=== PATIENT | female | born 1990 | race Caucasian/White ===

== ENCOUNTER 2020-06-07 11:55 | Outpatient (CLI) | payer OTHER, SELFPAY ==
[2020-06-07 12:26] LABS: Hematocrit 42.4 % (37.0-47.0); Hemoglobin 14.4 g/dL (12.0-15.0); Mean Corpuscular Hemoglobin 30.8 pg (26-34); Mean Corpuscular Volume 90.6 fl (80-100); Mean Platelet Volume 9.4 fl (7.4-10.4); Platelet Count Result 351 k/mm3 (150-375); Red Blood Count 4.68 M/mm3 (4.2-5.4); Red Cell Distribution Width 12.5 % (11.5-14.5); White Blood Count 8.9 K/mm3 (4.5-10.0)
[2020-06-07 13:07] LABS: Free T4 Free Thyroxine 0.78 ng/mL (0.78-2.19)
[2020-06-11 11:46] LABS: Prolactin 4.6 ng/mL (***)
== END 2020-06-07 11:56 | disposition home or self-care (01) ==
PROVIDERS: Visit Provider Obstetrics & Gynecology
DX: N93.9 Abnormal uterine and vaginal bleeding, unspecified (principal)
CPT/HCPCS: 36415; 84146; 84439; 84443; 85027

== ENCOUNTER 2021-05-24 10:14 | Outpatient (CLI) | payer MEDICAID, SELFPAY ==
[2021-05-24 10:23] LABS: Basophils Absolute Auto 0.06 K/mm3 (0.00-0.10); Basophils Percent Auto 0.7 % (0.0-1.0); Eosinophils Absolute Auto 0.13 K/mm3 (0.02-0.50); Eosinophils Percent Auto 1.6 % (1.0-6.0); Hematocrit 43.2 % (35.0-49.0); Hemoglobin 14.6 g/dL (12.0-15.0); Immature Granulocyte Absolute 0.05 K/mm3 (0.00-0.00); Immature Granulocyte Percent A 0.6 % (0.0-0.0); Lymphocytes Absolute Auto 2.74 K/mm3 (1.10-4.50); Lymphocytes Percent Auto 33.5 % (18.0-42.0); Mean Corpuscular HGB Conc 33.8 g/dL (32.0-36.0); Mean Corpuscular Volume 88.9 fL (78.0-102.0); Mean Platelet Volume 9.4 fl (9.2-11.8); Monocytes Absolute Auto 0.46 K/mm3 (0.10-0.90); Monocytes Percent Auto 5.6 % (2.0-11.0); Neutrophils Absolute Auto 4.8 K/mm3 (1.7-7.2); Platelet Count Result 333 K/mm3 (150-420); Red Blood Count 4.86 M/mm3 (4.20-5.40); Red Cell Distribution Width 12.2 % (11.6-14.4); White Blood Count 8.2 K/mm3 (4.8-10.8)
[2021-05-24 11:12] LABS: Alanine Aminotransferase 103 U/L (14-59); Albumin Level 4.1 g/dL (3.4-5.0); Alkaline Phosphatase 109 U/L (46-116); Anion Gap 9 mmol/L (8-16); Aspartate Amino Transferase 38 U/L (15-37); Bilirubin,Total 0.4 mg/dL (0.00-1.00); Blood Urea Nitrogen 9 mg/dL (7-18); Calcium 9.6 mg/dL (8.5-10.1); Carbon Dioxide 30 mmol/L (21-32); Chloride 103 mmol/L (98-108); Estimated Glomerular Filt Rate > 60; Glucose 108 mg/dL (70-99); Magnesium 2.1 mg/dL (1.8-2.4); Osmolality Calculated 293 mOsm/kg (285-295); Potassium 4.6 mmol/L (3.5-5.1); Sodium 142 mmol/L (136-145); Thyroid Stimulating Hormone 2.72 uIU/mL (0.36-3.74); Total Protein 7.4 g/dL (6.4-8.2)
[2021-05-27 11:44] LABS: Vitamin D 25 Hydroxy 21 ng/mL (30-100)
== END 2021-05-24 10:15 | disposition home or self-care (01) ==
LOC: CHSLAB 10:16
PROVIDERS: PCP Nurse Practitioner Family; Visit Provider Nurse Practitioner Family
DX: I10 Essential (primary) hypertension (principal); E83.42 Hypomagnesemia; R53.83 Other fatigue
CPT/HCPCS: 36415; 80053; 82306; 83735; 84443; 85025

== ENCOUNTER 2021-06-06 11:56 | Outpatient (CLI) | payer MEDICAID, SELFPAY ==
--- NOTE | ~2021-06-06 | US_ITS ---
EXAMINATION: US soft tissue UE LT DATE: 06/06/2021 13:13 INDICATION: Ganglion cyst with palpable lump between the base of the first and second metacarpals. TECHNIQUE: Multiple grayscale and Doppler ultrasound images of the region of concern at the dorsal ra dial aspect of the left hand were obtained. COMPARISON: None FINDINGS: 1.9 x 1.3 x 0.6 cm anechoic fluid collection at the region of concern which is without internal vascu lar flow on color Doppler . There appears be a neck of the cystic fluid collection extending to one o f the joint space at the base of the first and second metacarpals suggesting a ganglion cyst. IMPRESSION: 1. Couple abnormality of concern appears to correspond to a 1.9 x 1.3 x 0.6 cm likely ganglion cyst l ikely arising from the first or second carpal metacarpal joints. Reviewed, dictated and finalized at location A. IMPRESSION: 1. Couple abnormality of concern appears to correspond to a 1.9 x 1.3 x 0.6 cm likely ganglion cyst likely arising from the first or second carpal metacarpal joints.
--- NOTE | ~2021-06-06 | MMUS_ITS ---
EXAMINATION: MM diagnostic susana BI w maura, US breast BI limited HISTORY: Upper outer quadrant left breast lump TECHNIQUE: ML, MLO and craniocaudal 3-D tomosynthesis images of both breasts were performed and synth etic 2-D images were generated. CAD analysis was submitted and interpreted. High resolution bilateral upper outer quadrant breast ultrasound was performed. COMPARISON: None BREAST PARENCHYMAL COMPOSITION: There are scattered areas of fibroglandular density. FINDINGS: MAMMOGRAPHIC FINDINGS: There is a circumscribed lobular approximately 3.5 x 9.8 mm mass in the mid to upper outer right [address]. No suspicious mass, architectural distortion, malignant calcification, skin thickening or retraction of either breast is noted otherwise. ULTRASOUND: Right breast: An approximately 3.6 x 11.6 mm lymph node is identified, likely corresponding to the circumscribed ma mmographic mass, in the upper outer quadrant of the right breast. Left breast: A 4.3 x 2.2 x 3.4 mm cyst is identified in the area of the palpable complaint at 12-1:00 9 cm from the nipple. No suspicious mass or shadowing of either breast is detected. IMPRESSION: 1. Benign findings 2. Routine mammographic screening is recommended beginning at age 40 BI-RADS Category 2: Benign finding(s). Reviewed, dictated and finalized at location A. IMPRESSION: 1. Benign findings 2. Routine mammographic screening is recommended beginning at age 40 BI-RADS Category 2: Benign finding(s).
== END 2021-06-06 11:57 | disposition home or self-care (01) ==
LOC: ANHIMG 11:59
PROVIDERS: PCP Nurse Practitioner Family; Visit Provider Advanced Practice Midwife
DX: N63.42 Unspecified lump in left breast, subareolar (principal); N63.11 Unspecified lump in the right breast, upper outer quadrant; N60.02 Solitary cyst of left breast; M67.432 Ganglion, left wrist
CPT/HCPCS: 76642; 76882; 77062; 77066; G0279

== ENCOUNTER 2021-07-06 09:53 | Outpatient (CLI) | payer OTHER, SELFPAY ==
--- NOTE | ~2021-07-06 | XR_ITS ---
EXAMINATION: XR chest 2V EXAM DATE: 07/06/2021 10:43 INDICATION: Gastric sleeve pre op CXR, hx high BP . TECHNIQUE: Frontal and lateral projections of the chest obtained and reviewed. Comparison is made to prior examination from 03/30/2019. FINDINGS: The lungs are clear. There are no pleural effusions. The cardiomediastinal silhouette is within normal limits. There is no pneumothorax suspected. The bones and soft tissues are unremarkab le. There is no significant interval change. IMPRESSION: Normal chest x-ray exam. Reviewed, dictated and finalized at location B. TESTER IMPRESSION: Normal chest x-ray exam.
[2021-07-06 10:32] LABS: Hemoglobin A1C 5.9 % (<5.7)
--- NOTE | 2021-07-06 10:35 | ECG_ITS ---
Measurements Intervals [place] Rate: 63 P: 57 [place]: 168 QRS: 66 QRSD: 89 T: 57 QT: 388 QTc: 399 Interpretive Statements SINUS RHYTHM WITH SINUS ARRHYTHMIA NORMAL ECG Electronically Signed On 07-06-2021 11:28:26 [employer]OTH [employer]APPING SUPERVISOR by Tate Matta D.O.
[2021-07-06 10:40] LABS: Partial Thromboplastin Time 29.2 SEC (23.90-30.70); Prothrombin Time 10.3 Seconds (9.50-12.10)
[2021-07-06 11:16] LABS: Cholesterol 157 mg/dL (0-200); Ferritin 82 ng/mL (8-252); Folic Acid 16.8 ng/mL (8.6->20); HDL Direct 57 mg/dL (40-60); Iron 86 ug/dL (50-170); LDL Cholesterol Calculated 87 mg/dL (<130); Percent Iron Saturation 26 % (12-57); Triglycerides 63 mg/dL (0-150); Vitamin B12 431 pg/mL (193-986)
[2021-07-10 05:12] LABS: Vitamin B1 8 nmol/L (8-30)
[2021-07-11 10:02] LABS: Parathyroid Intact 97 pg/mL (14-64)
== END 2021-07-06 09:54 | disposition home or self-care (01) ==
LOC: CHSCARD 09:59
PROVIDERS: PCP Nurse Practitioner Family
DX: E66.01 Morbid (severe) obesity due to excess calories (principal); Z01.818 Encounter for other preprocedural examination
CPT/HCPCS: 36415; 71046; 80061; 82607; 82728; 82746; 83036; 83540; 83550; 83970; 84425; 85610; 85730; 93005

== ENCOUNTER 2021-07-18 10:07 | Outpatient (CLI) | payer OTHER, SELFPAY ==
--- NOTE | ~2021-07-18 | XR_ITS ---
EXAMINATION: XR wrist LT min 3V EXAM DATE: 07/18/2021 10:25 INDICATION: Left wrist arthritis, ganglion cyst scaphoid region. TECHNIQUE: Left wrist frontal, frontal with ulnar deviation, oblique and lateral projections obtained and reviewed. There is no prior study for comparison. FINDINGS: Left wrist scapholunate joint space is maintained. Small well-corticated scaphoid cystic re gion, benign finding. Potentially could be intraosseous component ganglion cyst. No other erosions. J oint spaces are uniform. There are no acute fractures or dislocations identified. There is no subcut aneous gas. The soft tissue is unremarkable. There are no radiopaque foreign bodies. IMPRESSION: Small scaphoid well-defined lucent region, benign finding. Possible intraosseous ganglion cyst. Reviewed, dictated and finalized at location A. PER SORTER
== END 2021-07-18 10:08 | disposition home or self-care (01) ==
LOC: ANHIMG 10:12
PROVIDERS: PCP Nurse Practitioner Family; Visit Provider Plastic Surgery
DX: M19.032 Primary osteoarthritis, left wrist (principal); M67.432 Ganglion, left wrist
CPT/HCPCS: 73110

== ENCOUNTER 2021-08-16 17:18 | Outpatient (CLI) | payer OTHER, SELFPAY ==
--- NOTE | ~2021-08-16 | XR_ITS ---
EXAMINATION:XR cervical spine 4-5V DATE: 08/16/2021 17:35 INDICATION: Neck pain TECHNIQUE: AP, lateral, bilateral oblique, and odontoid views of the cervical spine are provided. COMPARISON: 01/04/2011 FINDINGS: There is straightening of the cervical spine. Alignment is normal. The odontoid is intact. No fracture is identified. Vertebral body heights and disk spaces are normal. There is mild neurofora quynh stenosis on the left at C5-6. There is mild multilevel facet and uncovertebral joint osteoarthr itis. IMPRESSION: 1. Mild cervical spondylosis without acute findings. Reviewed, dictated and finalized at location F. PACKER
== END 2021-08-16 17:19 | disposition home or self-care (01) ==
LOC: CHSIMG 17:19
PROVIDERS: PCP Nurse Practitioner Family; Visit Provider Nurse Practitioner Family
DX: M54.12 Radiculopathy, cervical region (principal)
CPT/HCPCS: 72050

== ENCOUNTER → 2021-08-18 00:12 | Outpatient (CLI) | payer OTHER, SELFPAY ==
[2021-08-19 16:52] LABS: SARS-CoV-2 RNA PCR Negative
== END ==
PROVIDERS: PCP Nurse Practitioner Family; Visit Provider Plastic Surgery
DX: Z01.812 Encounter for preprocedural laboratory examination (principal); Z20.822 Contact with and (suspected) exposure to COVID-19
CPT/HCPCS: C9803; U0003; U0005

== ENCOUNTER 2021-08-23 00:41 | Day surgery (SDC) | payer OTHER, SELFPAY ==
[2021-08-14 15:35] VITALS: BMI 37.0
--- NOTE | 2021-08-14 15:46 | PC.NURSE ---
Report to the Outpatient Waiting Room, entrance under the green pavilion located off [facility], at time 0730 on date 08/23/21. OR Time: 0930. - You will be asked a series of questions to screen for COVID 19 for your protection. - A mask is required within the hospital. - No visitors are allowed at this time. Patient visitors will be guided where to wait when not with patient. Preoperative COVID Testing Requirements: No COVID Test needed if: (proof is required; if not received patient will have Rapid Test prior to entry) - Patient has received COVID Vaccine at least 14 days prior to procedure date or - Patient has positive COVID test result within last 90 days of surgery date. COVID Test needed if above criteria is not met If not COVID vaccinated a COVID test must be conducted within 72 hours of surgery and patient is asked to isolate self from time of testing until procedure. You will go to the [facility] for your COVID testing. The [facility] is located at the corner of [address] [facility]. COVID TEST 08/18 AT 0905 You will only be called if COVID results are positive and your surgeon may reschedule your elective surgery date. Patients may have clear liquids (water, carbonated beverages, clear teas, apple juice) until 3 hours prior to surgery with a maximum of 20 ounces. - No food from midnight until time of surgery Take the following medications with a SIP of water the morning of surgery: LAMOTRIGINE, CLONAZEPAM (IF NEEDED) Medications to discontinue per physician: VITAMINS/SUPPLEMENTS Date to take last dose: 08/20/21 Please no make-up, nail ecuadorean, hairspray, perfume, deodorant, or body powder the day of surgery. No jewelry (including any body piercings) or valuables the day of surgery, leave them at home. Please take a shower or bath the night before, or the morning of, surgery with an antibacterial soap. Wear comfortable, loose fitting clothing. - Jewelry must be removed prior to entering the operating room. Rings and piercings that are not removed may be cut off. - The hospital will not accept responsibility for valuables. - Please leave all valuables, including medications, at home the day of surgery. If you are going home after surgery, a licensed dinkey driver must drive you home. - NO public transportation without another adult. - We recommend that an adult stay with you for 24 hours following discharge. - We also recommend that you do not drive, make important decision, drink alcoholic beverages, or take any drugs that were not prescribed by your health care provider for at least 24 hours after your discharge time. Follow any additional instructions given to you from your surgeon. Telephone instructions given to WENCESLAO BOWLING and asked if any additional questions and then verbalized understanding. Patient advised to call surgeon office or pre surgery nurse liaison [phone] if any additional questions.
--- NOTE | 2021-08-23 07:14 | WPDHPUPDATE1 ---
History and Physical Update Update Date/Time: 08/23/21 07:14 History and Physical has been reviewed, including an updated exam of the patient. There are NO changes in the patient's condition. Risks, benefits, and alternatives have been discussed and questions answered. Patient agrees to proceed with procedure.
[2021-08-23 07:50] VITALS: BP 131/87; PULSE 92; RESP 16; TEMP 36.9; O2SAT 100
--- NOTE | 2021-08-23 08:06 | WPDANESEPPF ---
Anes - Initial Pre Proc Eval Procedure: Operation Date: 08/23/21 09:30 Proposed Procedures p Excision Left Dorsal Wrist Ganglion Cyst - Christian Yarbrough MD Date/Time: 08/23/21 08:06 Surgeon: Christian Yarbrough MD Pre Op Diagnosis: left dorsal wrist ganglion cyst Patient Data Age: 30 Gender: F Height: 1.6 m Weight: 95.9 kg Last Vital Signs Temp 36.9 C 08/23/21 07:50 Pulse 92 08/23/21 07:50 Resp 16 08/23/21 07:50 BP 131/87 08/23/21 07:50 Pulse Ox 100 08/23/21 07:50 Allergies Allergy/AdvReac Type Severity Reaction Status Date / Time No Known Allergies Allergy Verified 08/23/21 08:02 Home Medications Medication Instructions Recorded Confirmed Type estradiol 0.1 mg/24 hr semiweekly 1 patch TRANSDERMAL DAILY ea 05/24/21 08/23/21 History transdermal patch ergocalciferol (vitamin D2) 1,250 1,250 mcg PO WEEKLY #12 cap 05/29/21 08/23/21 Rx mcg (50,000 unit) capsule lisinopril 20 mg tablet 20 mg PO DAILY #30 tablet 07/17/21 08/23/21 Rx clonazepam 0.5 mg PO TID PRN 08/14/21 08/23/21 History lamotrigine 200 mg PO BID 08/14/21 08/23/21 History tizanidine 4 mg capsule 4 mg PO TID PRN #10 cap 08/17/21 08/23/21 Rx Patient hx anesthesia problems: none Family hx anesthesia problems: none Results Review: All pre-operative results and documents have been reviewed as part of the pre-operative evaluation. [facility] Past Medical History Medical History Anxiety Depression Post hysterectomy menopause Salpingitis Seizure disorder Vaginal delivery x 3 Surgical History Surgical History History of cholecystectomy History of hysterectomy Family History Family History Grandparent Acute myocardial infarction Mother Hypertension Other Cervical cancer Diabetes mellitus Social History Social History Smoking packs per day: 0.5 Smoking cigarettes per day: 10.0 Years smoked: 3 Smoking pack-years: 1.50 Smoking status: Former smoker Tobacco type: cigarettes Smoking end date: 08/19/10 Alcohol intake: never Alcohol use details: seldom Substance use: never Substance use type: does not use Living arrangements: with family Spiritual care concerns: No Anes - Eval Final PreProcedure Day of Procedure 08/23/21 08:06 Patient weight: obese Heart: regular rate and rhythm Lungs: clear to auscultation and normal air movement Airway: Mallampati scale class II Neurological: alert and oriented Last oral intake: >/= 8 hours ASA classification: III Emergent: no Anesthetic plan: proceed Anesthesia type and monitoring: general GIVS and standard monitoring Results Review: All pre-operative results and documents have been reviewed as part of the pre-operative evaluation. Informed Consent: The patient's anesthetic plan and its attendant risks and benefits were discussed with the patient/family/POA. Questions were solicited and answers provided to the satisfaction of the patient/family/POA.
[2021-08-23] MEDS: LACTATED RINGERS 1,000 ML 30 ML IV CONT (08:17)
[2021-08-23] MEDS: LIDO 1%/EPINEPHRINE/PF 1:200,000 30 ML VIAL INFILTRATE (10:16)
[2021-08-23 10:37] VITALS: BP 104/65; PULSE 100; RESP 14; O2SAT 97
--- NOTE | 2021-08-23 10:52 | W.PM.PROC2 ---
Procedure Note - Detailed Date of Procedure 08/23/21 Pre-op Diagnosis left dorsal wrist ganglion cyst Post-op Diagnosis same Procedure Performed Excision left dorsal wrist ganglion cyst Surgeon Christian Yarbrough MD Anesthesia MAC Indications Pain Findings Ganglion cyst Description of Procedure The site over the dorsal wrist was marked on the patient as she waited in the holding area. She was taken to the operating room and placed supine on the operating table. A time-out was held and confirmed. The patient was given IV sedation and the extremity was prepped and draped in usual fashion. The marking was placed over the mass running transversely and the site was locally infiltrated with 1% lidocaine epinephrine. The tourniquet was inflated to 250 mmHg. The site was identified and the transverse incision made. Dissection was carried through the subcutaneous tissue of to the extensor tendons. The mass was palpated beneath that level. Of the tendons were and the site was identified again and exposed. The cyst was identified in the thickened extensor wall of the capsule. The cyst was removed. This site was oversewn with 3-0 Ethibond suture closing the neck. The wound was closed with subcuticular and intradermal 4-0 Monocryl suture. The skin was closed with interrupted 4-0 Monocryl. Xeroform gauze and Kerlix and 3 in Олег wrap were applied. Tourniquet was released. She is discharged in stable condition. She has a prescription for hydrocodone 5/325 7. Estimated Blood Loss 0 Tourniquet Time 23 Drains No Packing No Pathology none sent Complications No immediate complications Condition stable Disposition same day
[2021-08-23 11:05] VITALS: BP 110/60; PULSE 56; RESP 20
[2021-08-23] MEDS: oxyCODONE HCL (*CRX) 5 MG TAB IR PO (11:11)
[2021-08-23 11:35] VITALS: BP 108/54; PULSE 54; RESP 20
== END 2021-08-23 11:45 | disposition home or self-care (01) ==
PROVIDERS: PCP Nurse Practitioner Family; Visit Provider Plastic Surgery
PROC: (CPT 25111; principal; 2021-08-23 09:30)
DX: M67.432 Ganglion, left wrist (principal); G40.909 Epilepsy, unspecified, not intractable, without status epilepticus; F41.8 Other specified anxiety disorders; Z87.891 Personal history of nicotine dependence; E66.9 Obesity, unspecified; Z68.37 Body mass index [BMI] 37.0-37.9, adult
CPT/HCPCS: 25111; A9270; J1100; J2250; J2405; J2704; J3010; J7120

== ENCOUNTER 2021-10-09 10:20 | Outpatient (CLI) | payer OTHER, SELFPAY ==
--- NOTE | 2021-10-11 10:37 | WPDHOLTEREM ---
Holter/Event Monitor Holter/Event Monitor Date of procedure: 10/09/21 Holter/Event Procedure: 48 Hr Holter Monitor Indications: Palpitations Conclusion: 1. 48 hour holter monitor on 10/09/21. 2. Underlying rhythm is sinus rhythm. HR range 55-169 bpm; average HR 93 bpm. HR at 169 bpm is at 16:31. 3. There are 5 premature supraventricular complexes. No supraventricular tachycardia. 4. No premature ventricular complexes. No ventricular tachycardia. 5. No sinoatrial or atrioventricular blocks. No significant pauses greater than 2 seconds. 6. Patient reports symptoms of pounding, pressure, dizziness, irregular beats, stabbing, and fluttering which demonstrate sinus rhythm, HR range 75-118 bpm.
== END 2021-10-09 10:21 | disposition home or self-care (01) ==
LOC: CHSCARD 10:22
PROVIDERS: PCP Nurse Practitioner Family; Visit Provider Nurse Practitioner Family
DX: R00.2 Palpitations (principal)
CPT/HCPCS: 93225; 93226

== ENCOUNTER 2021-10-18 10:47 | Outpatient (CLI) | payer OTHER, SELFPAY | END 2021-10-18 10:48 | disposition home or self-care (01) | LOC: CHSLAB 10:54 | PROVIDERS: PCP Nurse Practitioner Family | DX: Z87.891 Personal history of nicotine dependence (principal); Z01.818 Encounter for other preprocedural examination | CPT/HCPCS: 36415; 80323; G0480 ==

== ENCOUNTER 2021-10-25 13:52 | Outpatient (CLI) | payer OTHER, SELFPAY | END 2021-10-25 13:53 | disposition home or self-care (01) | LOC: CHSLAB 13:56 | PROVIDERS: PCP Nurse Practitioner Family | DX: Z87.891 Personal history of nicotine dependence (principal); Z01.818 Encounter for other preprocedural examination | CPT/HCPCS: 36415; 80323; G0480 ==

== ENCOUNTER 2022-02-22 09:06 | Outpatient (CLI) | payer OTHER, SELFPAY ==
[2022-02-22 09:23] LABS: Basophils Absolute Auto 0.05 K/mm3 (0.00-0.10); Basophils Percent Auto 0.8 % (0.0-1.0); Eosinophils Absolute Auto 0.13 K/mm3 (0.02-0.50); Hematocrit 40.3 % (35.0-49.0); Hemoglobin 13.4 g/dL (12.0-15.0); Immature Granulocyte Absolute 0.02 K/mm3 (0.00-0.00); Immature Granulocyte Percent A 0.3 % (0.0-0.0); Lymphocytes Absolute Auto 2.51 K/mm3 (1.10-4.50); Lymphocytes Percent Auto 37.8 % (18.0-42.0); Mean Corpuscular HGB Conc 33.3 g/dL (32.0-36.0); Mean Corpuscular Hemoglobin 30.3 pg (27.0-31.0); Mean Corpuscular Volume 91.2 fL (78.0-102.0); Neutrophils Absolute Auto 3.5 K/mm3 (1.7-7.2); Neutrophils Percent Auto 53.1 % (50.0-70.0); Platelet Count Result 237 K/mm3 (150-420); Red Blood Count 4.42 M/mm3 (4.20-5.40); Red Cell Distribution Width 13.2 % (11.6-14.4); White Blood Count 6.6 K/mm3 (4.8-10.8)
[2022-02-22 10:06] LABS: Alanine Aminotransferase 58 U/L (14-59); Albumin Level 4.1 g/dL (3.4-5.0); Alkaline Phosphatase 93 U/L (46-116); Anion Gap 8 mmol/L (8-16); Aspartate Amino Transferase 26 U/L (15-37); Bilirubin,Total 0.5 mg/dL (0.00-1.00); Blood Urea Nitrogen 14 mg/dL (7-18); Calcium 9.1 mg/dL (8.5-10.1); Carbon Dioxide 28 mmol/L (21-32); Chloride 107 mmol/L (98-108); Estimated Glomerular Filt Rate > 60; Folic Acid 15.1 ng/mL (8.6->20); Glucose 110 mg/dL (70-99); Magnesium 2.1 mg/dL (1.8-2.4); Osmolality Calculated 297 mOsm/kg (285-295); Potassium 3.8 mmol/L (3.5-5.1); Sodium 143 mmol/L (136-145); Total Protein 7.4 g/dL (6.4-8.2); Vitamin B12 576 pg/mL (193-986)
--- NOTE | 2022-02-23 16:12 | WPDHOLTEREM ---
Holter/Event Monitor Holter/Event Monitor Date of procedure: 02/22/22 Holter/Event Procedure: 24 Hr Holter Monitor Indications: Tachycardia Conclusion: 1. 24 hour holter monitor on 02/22/22. 2. Underlying rhythm is sinus rhythm. HR range 42-138 bpm; average HR 71 bpm. 3. There are 6 premature supraventricular complexes and 2 supraventricular couplets. No supraventricular tachycardia. 4. There are no premature ventricular complexes. No ventricular tachycardia. 5. No sinoatrial or atrioventricular blocks. No significant pauses greater than 2 seconds. 6. Patient reports symptoms of sharp pain and random pain which demonstrate sinus rhythm, HR range 74-103 bpm.
[2022-02-27 20:22] LABS: Vitamin D 25 Hydroxy 32 ng/mL (30-100)
== END 2022-02-22 09:07 | disposition home or self-care (01) ==
LOC: CHSCARD 09:08
PROVIDERS: PCP Nurse Practitioner Family; Visit Provider Nurse Practitioner Family
DX: R00.0 Tachycardia, unspecified (principal); E83.42 Hypomagnesemia
CPT/HCPCS: 36415; 80053; 82306; 82607; 82746; 83735; 85025; 93225; 93226

== ENCOUNTER 2022-04-10 09:43 | Outpatient (CLI) | payer OTHER, SELFPAY ==
--- NOTE | ~2022-04-10 | XR_ITS ---
EXAM: XR thoracolumbar DATE: 04/10/2022 11:17 HISTORY: M54.9 - Dorsalgia, unspecified pain times two years NKI . COMPARISON: None available. FINDINGS: Cholecystectomy and GE junction surgery. 5 nonrib-bearing lumbar-type vertebral bodies. Hypoplastic r ibs at T12. Pedicles intact. Normal vertebral body alignment. Vertebral body heights preserved. Lisette nal osteophytosis at L4 and L5. Mild disc space narrowing at L4-5 and L5-S1, otherwise the discs spac es are maintained. Normal facets and posterior elements. No fracture or dislocation. IMPRESSION: Mild degenerative disc disease in the lower lumbar spine. Reviewed, dictated and finalized at location K.
--- NOTE | ~2022-04-10 | US_ITS ---
EXAMINATION: US abdomen complete DATE: 04/10/2022 11:23 INDICATION: Left upper quadrant abdominal pain. TECHNIQUE: Multiple grayscale and Doppler ultrasound images of the abdomen were obtained. COMPARISON: None FINDINGS: The visualized portions of the head, body, and tail of the pancreas are normal. Abdominal a brian and inferior vena cava are normal. The liver is normal without focal lesion. The gallbladder is absent. The common duct is normal and measures 8 mm. The kidneys are normal in size. The spleen is no rmal in size. IMPRESSION: 1. Normal complete abdomen ultrasound status post cholecystectomy. Reviewed, dictated and finalized at location A.
== END 2022-04-10 09:44 | disposition home or self-care (01) ==
LOC: CHSIMG 09:46
PROVIDERS: PCP Nurse Practitioner Family; Visit Provider Nurse Practitioner Family
DX: R10.9 Unspecified abdominal pain (principal); Z90.3 Acquired absence of stomach [part of]; M54.9 Dorsalgia, unspecified
CPT/HCPCS: 72080; 76700

== ENCOUNTER 2022-07-26 01:09 | Day surgery (SDC) | payer OTHER, SELFPAY ==
[2022-07-17 08:04] VITALS: BMI 22.1
--- NOTE | 2022-07-26 07:25 | WPDHPUPDATE1 ---
History and Physical Update Update Date/Time: 07/26/22 07:25 History and Physical has been reviewed, including an updated exam of the patient. There are NO changes in the patient's condition. Risks, benefits, and alternatives have been discussed and questions answered. Patient agrees to proceed with procedure.
[2022-07-26 11:18] VITALS: BP 106/69; PULSE 62; RESP 20; TEMP 36.8; O2SAT 100
--- NOTE | 2022-07-26 12:16 | P.PNAN_ITS ---
Anes - Initial Pre Proc Eval Procedure: Operation Date: 07/26/22 14:00 Proposed Procedures p Re-Excision of Ganglion Cyst Left Dorsal Wrist, - Christian Yarbrough MD s Excision of Keloids Right Upper [place] and Mid [place] - Christian Yarbrough MD Date/Time: 07/26/22 12:16 Surgeon: Christian Yarbrough MD Pre Op Diagnosis: ganglion cyst lft wrist,keloids upper&mid [id number] Patient Data Age: 31 Gender: F Height: 1.6 m Weight: 56.7 kg Allergies Allergy/AdvReac Type Severity Reaction Status Date / Time No Known Allergies Allergy Verified 07/17/22 08:08 Home Medications Medication Instructions Recorded Confirmed Type lamotrigine 200 mg tablet See Rx Instructions .Route 02/01/22 07/17/22 Rx .COMPLEX #60 tabs clonazepam 0.5 mg tablet 0.5 mg PO TID #90 tabs 07/05/22 07/17/22 Rx Adults Multivitamin 1 tab-cap PO DAILY 07/17/22 07/17/22 History estradiol 0.1 mg/24 hr semiweekly 1 patch transdermal WEEKLY 07/17/22 07/26/22 History transdermal patch Patient hx anesthesia problems: none Family hx anesthesia problems: none Results Review: All pre-operative results and documents have been reviewed as part of the pre- operative evaluation. [facility] Past Medical History Medical History (Updated 04/19/22 @ 08:42 by Eva Leonard APRN) Anxiety Depression LUQ abdominal pain Post hysterectomy menopause Salpingitis Seizure disorder Vaginal delivery x 3 Surgical History Surgical History Bariatric surgery status H/O wrist surgery cyst from Left History of cholecystectomy History of hysterectomy Family History Family History Grandparent Acute myocardial infarction Mother Hypertension Other Cervical cancer Diabetes mellitus Social History Social History Smoking packs per day: 0.5 Smoking cigarettes per day: 10.0 Years smoked: 3 Smoking pack-years: 1.50 Smoking status: Former smoker Tobacco type: cigarettes Smoking end date: 08/19/10 Alcohol intake: current Alcohol use details: seldom Substance use: never Substance use type: does not use Spiritual care concerns: No Anes - Eval Final PreProcedure Day of Procedure 07/26/22 12:16 Patient weight: normal Heart: regular rate and rhythm Lungs: clear to auscultation Airway: Mallampati scale class II Neurological: alert and oriented Last oral intake: >/= 8 hours ASA classification: II Emergent: no Anesthetic plan: proceed Anesthesia type and monitoring: general GIVS and standard monitoring Results Review: All pre-operative results and documents have been reviewed as part of the pre- operative evaluation. Informed Consent: The patient's anesthetic plan and its attendant risks and benefits were discussed with the patient/family/POA. Questions were solicited and answers provided to the satisfaction of the patient/family/POA.
[2022-07-26] MEDS: LACTATED RINGERS 1,000 ML 30 ML IV CONT (12:20)
[2022-07-26] MEDS: LIDO 1%/EPINEPHRINE/PF 1:200,000 30 ML VIAL 10 ML XX (13:01)
[2022-07-26] MEDS: BACITRACIN OINTMENT 15 GM TUBE 1 APPLIC TOPICAL (13:38)
[2022-07-26 13:53] VITALS: BP 143/112; PULSE 98; RESP 16; O2SAT 98
--- NOTE | 2022-07-26 14:01 | W.PM.PROC2 ---
Procedure Note - Detailed Date of Procedure 07/26/22 Pre-op Diagnosis ganglion cyst lft wrist,keloids upper&mid [id number] Post-op Diagnosis Other (Recurrent cyst of the left dorsal wrist. 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 1 cm excision of 1 cm keloid of the right upper helix with 1 cm simple repair and 1 cm excision of 1 cm keloid right mid helix with 1 cm simple repair. Surgeon Christian Yarbrough MD Anesthesia MAC Indications Prominent recurrent tender ganglion cyst. 1 cm pedunculated keloid of the right upper and mid helix snagging on her hair. Description of Procedure In the holding area the patient has 3 sites were marked for treatment. She was taken to the operating room placed supine operating table. A time-out was held and confirmed she was given IV sedation with an LMA. The sites were prepped and draped in usual fashion. Each was re identified and locally infiltrated with 1% lidocaine with epinephrine. The right upper extremity was exsanguinated and the tourniquet inflated to 250 mmHg. At the wrist bent over folded towels the transverse incision was made through the existing scar site. The ganglion was readily identified. It was dissected from its position within pliable scar tissue from her last surgery. We were able to follow the ganglion to its base where it was avulsed. At that site we placed 2 interrupted 2-0 Ethibond sutures. Passive flexion was not impeded by this. The tourniquet was released. The wound was closed in 2 layers with 4-0 Monocryl to close subcutaneous tissue and dermis. Glue was applied to the surface of this wound. Attention was turned to the right ear. Keloid sites were infiltrated with 1% lidocaine with epinephrine. The mid helix keloid excised around its base and taken off the perichondrium. Without undermining this wound the wound was closed with interrupted 6 0 nylon suture. Attention was then turned to the upper helix keloid this was also excised through a circular incision around the face. This wound was closed with interrupted 6 0 nylon without undermining tolerated well The usual bandage was applied to the left wrist. Estimated Blood Loss 5 Tourniquet Time 30 Drains No Packing No Pathology None sent Complications No immediate complications Condition Stable Disposition Same day
[2022-07-26 14:20] VITALS: BP 114/96; PULSE 62; RESP 14
[2022-07-26] MEDS: oxyCODONE HCL (*CRX) 5 MG TAB IR PO (14:32)
[2022-07-26 14:50] VITALS: BP 105/76; PULSE 62; RESP 14
== END 2022-07-26 15:15 | disposition home or self-care (01) ==
PROVIDERS: PCP Nurse Practitioner Family; Visit Provider Plastic Surgery
PROC: (CPT 25112; principal; 2022-07-26 14:00)
PROC: (CPT 25112; 2022-07-26 14:00)
DX: M67.432 Ganglion, left wrist (principal); L91.0 Hypertrophic scar; G40.909 Epilepsy, unspecified, not intractable, without status epilepticus; F41.9 Anxiety disorder, unspecified; F32.A Depression, unspecified; Z98.84 Bariatric surgery status; Z87.891 Personal history of nicotine dependence
CPT/HCPCS: 25112; 11441 ×2; A9270; J2250; J2370; J2405; J2704; J3010; J7120

== ENCOUNTER 2022-08-30 11:19 | Outpatient (CLI) | payer OTHER, SELFPAY ==
--- NOTE | ~2022-08-30 | XR_ITS ---
EXAMINATION: XR thoracic spine 3V DATE: 08/30/2022 12:00 INDICATION: Thoracic spine pain TECHNIQUE: AP, lateral and lateral swimmer's views of the thoracic spine were obtained. COMPARISON: None. FINDINGS: Bone alignment is normal. There is no fracture. The vertebral body heights are maintained. Small degenerative osteophytes project from the anterior endplates of multiple vertebral bodies. Ther e are surgical changes of the left upper quadrant as well as likely postcholecystectomy change. IMPRESSION: 1. Mild thoracic spondylosis without acute findings. Reviewed, dictated and finalized at location L. TREATMENT TECHNICIAN
[2022-08-30 11:46] LABS: Basophils Absolute Auto 0.03 K/mm3 (0.00-0.10); Basophils Percent Auto 0.7 % (0.0-1.0); Eosinophils Absolute Auto 0.07 K/mm3 (0.02-0.50); Eosinophils Percent Auto 1.5 % (1.0-6.0); Hematocrit 39.7 % (35.0-49.0); Hemoglobin 13.5 g/dL (12.0-15.0); Immature Granulocyte Absolute 0.01 K/mm3 (0.00-0.00); Immature Granulocyte Percent A 0.2 % (0.0-0.0); Lymphocytes Absolute Auto 1.72 K/mm3 (1.10-4.50); Lymphocytes Percent Auto 37.8 % (18.0-42.0); Mean Corpuscular Volume 91.1 fL (78.0-102.0); Mean Platelet Volume 10.8 fl (9.2-11.8); Monocytes Absolute Auto 0.35 K/mm3 (0.10-0.90); Monocytes Percent Auto 7.7 % (2.0-11.0); Neutrophils Absolute Auto 2.4 K/mm3 (1.7-7.2); Neutrophils Percent Auto 52.1 % (50.0-70.0); Platelet Count Result 234 K/mm3 (150-420); Red Blood Count 4.36 M/mm3 (4.20-5.40); White Blood Count 4.6 K/mm3 (4.8-10.8)
[2022-08-30 12:11] LABS: Hemoglobin A1C 5.2 % (<5.7)
[2022-08-30 12:47] LABS: Alanine Aminotransferase 30 U/L (14-59); Albumin Level 4.7 g/dL (3.4-5.0); Alkaline Phosphatase 98 U/L (46-116); Anion Gap 10 mmol/L (8-16); Aspartate Amino Transferase 18 U/L (15-37); Bilirubin,Total 0.6 mg/dL (0.00-1.00); Blood Urea Nitrogen 13 mg/dL (7-18); Calcium 9.4 mg/dL (8.5-10.1); Carbon Dioxide 29 mmol/L (21-32); Chloride 102 mmol/L (98-108); Estimated Glomerular Filt Rate > 60; Glucose 95 mg/dL (70-99); Osmolality Calculated 292 mOsm/kg (285-295); Sodium 141 mmol/L (136-145); Total Protein 7.8 g/dL (6.4-8.2)
[2022-09-02 17:29] LABS: Vitamin D 25 Hydroxy 43 ng/mL (30-100)
[2022-09-06 19:18] LABS: Parathyroid Hormone Related Pr 11 pg/mL (11-20)
== END 2022-08-30 11:20 | disposition home or self-care (01) ==
LOC: CHSLAB 11:21
PROVIDERS: PCP Nurse Practitioner Family; Visit Provider Nurse Practitioner Family
DX: E55.9 Vitamin D deficiency, unspecified (principal); E46 Unspecified protein-calorie malnutrition; M54.6 Pain in thoracic spine; Z90.3 Acquired absence of stomach [part of]; M43.04 Spondylolysis, thoracic region
CPT/HCPCS: 36415; 72072; 80053; 82306; 83036; 83519; 85025

== ENCOUNTER 2022-09-11 10:05 | Outpatient (RCR) | payer OTHER, SELFPAY ==
--- NOTE | 2022-09-11 11:38 | PTOPEVAL1 ---
Assessment and note entered by Whitney Cerda DPT Evaluation Information Assessment Status Evaluation Diagnosis back pain, chronic pain Onset 09/05/22 Subjective Information Patient reports pain from neck to low back with radiating pain the the L arm and the L leg that has progressed over the last 6 years with the last year being significantly worse. She reports L leg and foot are tingly and numb especially when she is laying down. She reports when she is sitting against a chair her mid back pain increased. Patient has difficulty sleeping, sitting, and picking up her kids. Patient reports that a hot shower will occasionally decrease pain. Patient reports gastric bypass sleeve in January 2022 Reported Pain Level Pain Score 6,4,3: Self Report Assessment PT Clinical Summary Patient is a 31 year old female who presents to PT with back pain. 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 Patient would benefit from skilled PT to address impairments and return to PLOF. Plan at this time to prioritize cervical and thoracic pain and progress with patient improvement. Plan of Care Interventions Electrical Stimulation,Hot Pack/Cold Pack,Manual Therapy,Mechanical Traction,Neuro Re-education, Patient/Caregiver Educati,Therapeutic Activities, Therapeutic Exercise,Self-Care/Home Management PT Services Indicated Yes Treatment Frequency and 2x weekly for 12 visits Duration These treatments will address the objective and functional deficits as defined above. The patient will be advanced safely and appropriately in order for the patient to progress towards his/her prior level of function. Additional exercises will be introduced and as well as a comprehensive home exercise program upon discharge, if needed, ?to ensure carryover of functional gains achieved in the clinic. This treatment plan has been reviewed and agreement upon by the patient.
== END 2022-09-25 14:45 | disposition home or self-care (01) ==
LOC: CHSPT 10:05
PROVIDERS: Visit Provider Nurse Practitioner Family
DX: M54.6 Pain in thoracic spine (principal); G89.29 Other chronic pain
CPT/HCPCS: 97014; 97110; 97140; 97161; G0283

== ENCOUNTER 2022-09-26 10:40 | Outpatient (CLI) | payer OTHER, SELFPAY ==
--- NOTE | ~2022-09-26 | MMUS_ITS ---
EXAMINATION: MM diagnostic susana BI w maura, US breast BI complete HISTORY: Patient complains of bilateral breast lumps and 4 year history of clear to Brown right nippl e discharge. TECHNIQUE: ML, MLO and CC 3-D tomosynthesis images of both breasts were performed and synthetic 2-D i mages were generated. CAD analysis was submitted and interpreted. Magnification views of left breast. High resolution bilateral complete breast ultrasound including all 4 quadrants and subareolar areas w as performed. COMPARISON: 06/06/2021 diagnostic bilateral mammogram and Limited bilateral breast ultrasound examina tion BREAST PARENCHYMAL COMPOSITION: The breasts are heterogeneously dense, which may obscure small masses . FINDINGS: MAMMOGRAPHIC FINDINGS: No suspicious mass or architectural distortion, malignant calcification, skin thickening or retractio n or significant new or developing density is detected. Minimal benign calcification of the breasts. ULTRASOUND: No suspicious mass or shadowing of either breast is detected. There is a benign appearing lymph node measuring approximately 2.5 x 6.6 x 6.9 mm in the right breast at 9:00 4 cm from the nipple. IMPRESSION: 1. Benign finding; no mammographic evidence of malignancy 2. Routine annual mammographic screening is recommended beginning at age 40 BI-RADS Category 2: Benign finding(s). Reviewed, dictated and finalized at location A. RONMENTAL SERVICES TECHNICIAN IMPRESSION: 1. Benign finding; no mammographic evidence of malignancy 2. Routine annual mammographic screening is recommended beginning at age 40 BI-RADS Category 2: Benign finding(s).
== END 2022-09-26 10:41 | disposition home or self-care (01) ==
PROVIDERS: PCP Nurse Practitioner Family; Visit Provider Nurse Practitioner Family
DX: N63.0 Unspecified lump in unspecified breast (principal); N64.52 Nipple discharge
CPT/HCPCS: 76641; 77062; 77066; G0279

== ENCOUNTER 2022-11-17 10:28 | Emergency (ER) | payer OTHER, SELFPAY ==
[2022-11-17] VITALS (15 sets, daily range): BP systolic 97–135; BP diastolic 63–80; PULSE 71–106; RESP 14–31; TEMP 36.3; O2SAT 99–100
--- NOTE | ~2022-11-17 | CT_ITS ---
EXAMINATION: CT abdomen pelvis w con DATE: 11/17/2022 11:49 INDICATION: Epigastric abdominal pain. Vomiting. TECHNIQUE: Computed tomography (CT) of the abdomen and pelvis was performed with 100 mL Omnipaque 350 intravenous contrast. Automated exposure control and iterative reconstruction technique were employe d. The dose-length product was 173.43 mGy-cm. COMPARISON: None. FINDINGS: The visualized portions of the lung bases are clear without pneumonia or pleural effusion. The heart size is normal. No pericardial effusion. The liver demonstrates focal steatosis adjacent to the falciform ligament. There are changes of cholecystectomy and gastric sleeve procedure. The splee n, pancreas, adrenal glands, and right kidney are normal. There is a 3 mm stone in left kidney. There are no dilated loops of bowel. The appendix is normal. There are no pathologically enlarged lymph no nancy. There is no free intraperitoneal fluid. There is moderate lower lumbar spondylosis. IMPRESSION: 1. No etiology for the patient's symptoms. Reviewed, dictated and finalized at location A.
--- NOTE | 2022-11-17 10:38 | ECG_ITS ---
Measurements Intervals [place] Rate: 72 P: 53 OK: 149 QRS: 61 QRSD: 85 T: 17 QT: 375 QTc: 412 Interpretive Statements SINUS RHYTHM WITH MARKED SINUS ARRHYTHMIA NONSPECIFIC ST & T-WAVE ABNORMALITY Electronically Signed On 11-17-2022 15:45:27 CDT by Naga Almanzar M.D.
[2022-11-17 11:13] LABS: Basophils Percent Auto 0.4 % (0.2-1.2); Eosinophils Percent Auto 0.2 % (0-4.4); Hematocrit 37.8 % (37.0-47.0); Immature Granulocyte Absolute 0.02 K/mm3 (0.00-0.031); Immature Granulocyte Percent A 0.2 % (0-0.5); Lymphocytes Absolute Auto 0.89 K/mm3 (0.9-3.2); Lymphocytes Percent Auto 8.5 % (18.3-44.2); Mean Corpuscular HGB Conc 34.4 g/dl (32-36); Mean Corpuscular Volume 90.2 fl (80-100); Mean Platelet Volume 10.8 fl (7.4-10.4); Monocytes Absolute Auto 0.3 K/mm3 (0.1-0.6); Monocytes Percent Auto 3.3 % (2.6-8.5); Neutrophils Absolute Auto 9.1 K/mm3 (1.3-6.7); Neutrophils Percent Auto 87.4 % (45.5-73.1); Platelet Count Result 237 k/mm3 (150-375); Red Blood Count 4.19 M/mm3 (4.2-5.4); Red Cell Distribution Width 12.1 % (11.5-14.5); White Blood Count 10.4 K/mm3 (4.5-10.0)
[2022-11-17 11:28] LABS: Magnesium 1.9 mg/dL (1.6-2.3)
[2022-11-17 11:32] LABS: Alanine Aminotransferase 20 U/L (6-35); Albumin Level 4.9 g/dL (3.5-5.1); Alkaline Phosphatase 83 U/L (38-126); Anion Gap 13 mmol/L (8-16); Aspartate Amino Transferase 25 U/L (14-36); Bilirubin,Total 1.1 mg/dL (0.2-1.3); Blood Urea Nitrogen 18 mg/dL (7-17); Calcium 8.7 mg/dL (8.4-10.2); Carbon Dioxide 23 mmol/L (22-30); Chloride 104 mmol/L (98-107); Estimated CRCL calculation 89 ml/min; Estimated Glomerular Filt Rate > 60; Glucose 147 mg/dL (65-110); Lactic Acid Reflex 1.7 mmol/L (0.7-2.0); Sodium 140 mmol/L (137-145)
[2022-11-17] MEDS: SODIUM CHLORIDE 0.9% IV 1,000 ML 999 ML IV CONT ×2 (11:51→13:00)
--- NOTE | 2022-11-17 11:56 | ED.GENADULT ---
HPI - General Adult General Chief complaint: Weakness Stated complaint: seizure? Time Seen by Provider: 11/17/22 10:38 Source: patient Mode of arrival: EMS Limitations: no limitations History of Present Illness HPI narrative: Patient is a 32 y/o female who presents to the ED via EMS with c/o weakness, epigastric pain. Patient reports she had gastric sleeve surgery in [facility] in January 2022 and has had numerous complications since then. She reports she has lost 105 pounds since then and has become very weak. She reports difficulty eating as she develops epigastric pain anytime she eats anything. She reports occasional regurgitation, nausea, and diarrhea. She states she typically has a bowel movement every 3 days. Denies vomiting, rectal bleeding, melena. Denies fevers, cough, cold symptoms, urinary symptoms. Today, patient states she developed muscle cramping and more significant pain in her epigastric region, which prompted her to contact EMS. She states she felt tingling in her extremities and developed an aura that she typically has before seizures. Patient does have a history of epilepsy and takes Lamictal. She has not missed any doses. She has not had a seizure since 2011. She denied any seizure-like activity or weakness. She remembers everything about today. No seizure like activity reported by EMS. Patient states her primary care doctor referred her to a GI specialist, but she was unable to get in until May. Patient does not currently take any vitamins, PPI, antacids. Related Data Home Medications Medication Instructions Recorded Confirmed Adults Multivitamin 1 tab-cap PO DAILY 07/17/22 08/30/22 Allergies Allergy/AdvReac Type Severity Reaction Status Date / Time No Known Allergies Allergy Verified 11/17/22 10:31 Review of Systems Review of Systems: CONSTITUTIONAL: Denies fever, chills, or sweats. ENT: Denies rhinorrhea, congestion, sore throat. CARDIOVASCULAR: Denies chest pain. RESPIRATORY: Denies dyspnea. GASTROINTESTINAL: See HPI. GENITOURINARY: Denies dysuria or hematuria. SKIN: Denies rash or itching. MUSCULOSKELETAL: See HPI. NEUROLOGIC: See HPI. All systems reviewed & are unremarkable except as noted in HPI and below PMFSH Past Medical History Medical History Anxiety Depression LUQ abdominal pain Post hysterectomy menopause Salpingitis Seizure disorder Vaginal delivery x 3 Surgical History Surgical History Bariatric surgery status H/O wrist surgery cyst from Left History of cholecystectomy History of hysterectomy Family History Family History Grandparent Acute myocardial infarction Mother Hypertension Other Cervical cancer Diabetes mellitus Social History Social History Smoking packs per day: 0.5 Smoking cigarettes per day: 10.0 Years smoked: 3 Smoking pack-years: 1.50 Smoking status: Former smoker Tobacco type: cigarettes Smoking end date: 08/19/10 Alcohol intake: current Alcohol use details: seldom Substance use: never Substance use type: does not use Living arrangements: with family Spiritual care concerns: No Exam Narrative: GENERAL: Well appearing, thin, non-toxic, in no acute distress. HEAD: Normocephalic, atraumatic. NECK: Supple. No adenopathy, no masses. RESPIRATORY: Airway patent, respirations nonlabored. Clear to auscultation bilaterally, no rales, rhonchi, wheezing. CARDIOVASCULAR: Regular rate and rhythm without murmurs, rubs, or gallops. Radial pulses 2+ and equal bilaterally. ABDOMINAL: Soft, tenderness throughout epigastric region, mildly throughout lower abdomen. Nondistended, no hepatosplenomegaly. Normoactive BS. MUSCULOSKELETAL: Moves all extremities. Strength/ROM intact wi
[2022-11-17 11:59] LABS: Influenza A QL RT-PCR Negative (Negative); Influenza B QL RT-PCR Negative (Negative); SARS-CoV-2 RNA PCR Negative
[2022-11-17 12:13] LABS: Appearance Urine Clear (Clear); Bacteria Urine None Seen /hpf; Bilirubin Urine Negative (Negative); Blood Urine Negative (Negative); Color Urine Yellow (Yellow); Glucose Urine UA Negative (Negative); Ketones Urine 4+ mg/dL (Negative); Leukocyte Esterase Ur 2+ LEU/UL (Negative); Need Manual Microscopic Reviewed; Nitrate Urine Negative (Negative); Non Pathogenic Casts 0-2; Protein Urine Trace mg/dL (Negative); RBC Urine 0-2 /hpf (0-2); Squamous Epithelial Cell Urine None seen /hpf (Few); Urobilinogen Urine 0.2 mg/dL (<2.0); WBC Urine 0-5 /hpf; pH Urine 5.5 (5.0-9.0)
[2022-11-17] MEDS: POTASSIUM CHLORIDE 20 MEQ PACKET (FOR LIQUID) 40 MEQ PO (12:15)
[2022-11-17] MEDS: levETIRAcetam 1000MG/NACL100ML 1,000 MG/100 ML BAG 400 MG IVPB (12:17)
[2022-11-17 12:22] LABS: Add Urine Microscopic? YES; Specific Grav Ur 1.043 (1.001-1.035)
--- NOTE | 2022-11-17 15:45 | PC.NURSE ---
PT REFUSED PROTONIX IVP MEDICATION. REJI DANIEL MADE AWARE. WILL D/C ZAIRA
== END 2022-11-17 15:50 | disposition home or self-care (01) ==
PROVIDERS: Emergency Medicine; Emergency Provider Physician Assistant; PCP Nurse Practitioner Family
DX: R10.13 Epigastric pain (principal); E86.0 Dehydration; Z87.891 Personal history of nicotine dependence; Z98.84 Bariatric surgery status
CPT/HCPCS: 36415; 74177; 80053; 81001; 83605; 83735; 85025; 87077; 87086; 87147; 87186; 87636; 93005; 96361; 96365; 99284; A9270; J1953; J7030; Q9967

== ENCOUNTER 2022-11-18 19:37 | Emergency (ER) | payer OTHER, SELFPAY ==
--- NOTE | ~2022-11-18 | CT_ITS ---
EXAMINATION: CT abdomen pelvis w con DATE: 11/19/2022 00:45 INDICATION: Upper abdominal pain TECHNIQUE: Computed tomography (CT) of the abdomen and pelvis was performed with 100 mL Omnipaque-350 intravenous contrast. Automated exposure control and iterative reconstruction technique were employe d. The dose-length product was 177.07 mGy-cm. COMPARISON: 11/17/2022 FINDINGS: Lung bases are clear. Heart size is normal. No pericardial or pleural effusion. Persistent focal hepa tic steatosis along the ligamentum teres. Postoperative change of prior sleeve gastrectomy. Spleen, p ancreas, bilateral adrenal glands and right kidney are normal. Mild left hydronephrosis with 3 mm obs tructing stone at the left ureterovesicular junction. Mild dilation of the common bile duct which jackson sures up to 8 mm and mild central intrahepatic biliary ductal dilation, both findings are unchanged a nd likely sequela of prior cholecystectomy with surgical clips the gallbladder fossa normal appendix. Oral contrast material extends through the normal caliber small bowel to the cecum with no bowel obs truction. There is mild edematous wall thickening in the proximal colon consistent with colitis. The uterus is not identified and has likely been surgically resected. No free intraperitoneal gas or flui d. No pathologically enlarged abdominal or pelvic lymphadenopathy. Moderate spondylosis at L5-S1. Oth erwise minimal spondylosis. IMPRESSION: 1. Obstructing 3 mm stone the left ureterovesicular junction with mild left hydronephrosis. 2. Mild wall thickening the proximal colon consistent with colitis could be infectious, inflammatory or less likely ischemic in etiology. Reviewed, dictated and finalized at location A. IMPRESSION: 1. Obstructing 3 mm stone the left ureterovesicular junction with mild left hyd ronephrosis. 2. Mild wall thickening the proximal colon consistent with colitis could be inf ectious, inflammatory or less likely ischemic in etiology.
[2022-11-18 20:50] VITALS: BP 114/79; PULSE 78; RESP 16; TEMP 36.2; O2SAT 100
[2022-11-18 22:15] VITALS: BP 95/59; PULSE 64; RESP 16; O2SAT 100
[2022-11-18] MEDS: ONDANSETRON INJ 4 MG/2 ML VIAL IV PUSH (22:57)
[2022-11-18] MEDS: MORPHINE SULFATE (*CRX) 4 MG/ML INJ IV PUSH (22:57)
[2022-11-18] MEDS: SODIUM CHLORIDE 0.9% IV 1,000 ML 999 ML IV CONT (22:58)
[2022-11-18 23:01] LABS: Basophils Percent Auto 0.3 % (0.2-1.2); Hematocrit 41.1 % (37.0-47.0); Hemoglobin 13.9 g/dL (12.0-15.0); Immature Granulocyte Absolute 0.02 K/mm3 (0.00-0.031); Immature Granulocyte Percent A 0.2 % (0-0.5); Lymphocytes Absolute Auto 1.11 K/mm3 (0.9-3.2); Lymphocytes Percent Auto 11.3 % (18.3-44.2); Mean Corpuscular HGB Conc 33.8 g/dl (32-36); Mean Corpuscular Volume 91.5 fl (80-100); Mean Platelet Volume 10.7 fl (7.4-10.4); Monocytes Absolute Auto 0.2 K/mm3 (0.1-0.6); Monocytes Percent Auto 2.2 % (2.6-8.5); Neutrophils Absolute Auto 8.5 K/mm3 (1.3-6.7); Platelet Count Result 250 k/mm3 (150-375); Red Blood Count 4.49 M/mm3 (4.2-5.4); Red Cell Distribution Width 12.3 % (11.5-14.5); White Blood Count 9.8 K/mm3 (4.5-10.0)
--- NOTE | 2022-11-18 23:08 | ED.GENADULT ---
HPI - General Adult General Chief complaint: Abdominal Pain Stated complaint: Abd pain, n/v, seen here yesterday Time Seen by Provider: 11/18/22 22:22 History of Present Illness HPI narrative: The patient is 32-year-old female who presents the emergency department with chief complaint of abdominal pain. The patient reports that she has prior history of a gastric sleeve that was done in [facility] the patient states that she was seen in the emergency department yesterday after she had had a seizure and reports that she was found to be hypokalemic and dehydrated. The patient reports that she was feeling little better after receiving fluids and potassium but reports that today she is having generalized discomfort throughout her abdomen. Patient reports the pain is not improved by anything and reports that its worsened by palpation and movement. Related Data Home Medications Medication Instructions Recorded Confirmed Adults Multivitamin 1 tab-cap PO DAILY 07/17/22 08/30/22 Allergies Allergy/AdvReac Type Severity Reaction Status Date / Time No Known Allergies Allergy Verified 11/17/22 10:31 Review of Systems Review of Systems: A 10 system review of systems was completed on the patient and is negative except for what is stated in the HPI. Nursing and ancillary documentation was reviewed. PMFSH Past Medical History Medical History Anxiety Depression LUQ abdominal pain Post hysterectomy menopause Salpingitis Seizure disorder Vaginal delivery x 3 Surgical History Surgical History Bariatric surgery status H/O wrist surgery cyst from Left History of cholecystectomy History of hysterectomy Family History Family History Grandparent Acute myocardial infarction Mother Hypertension Other Cervical cancer Diabetes mellitus Social History Social History Smoking packs per day: 0.5 Smoking cigarettes per day: 10.0 Years smoked: 3 Smoking pack-years: 1.50 Smoking status: Former smoker Tobacco type: cigarettes Smoking end date: 08/19/10 Alcohol intake: current Alcohol use details: seldom Substance use: never Substance use type: does not use Living arrangements: with family Spiritual care concerns: No Exam Narrative: GENERAL: Well-appearing, thin appearing, and in no acute distress. HEAD: Normocephalic, atraumatic. EYES: PERRLA and EOMI. ENT: Nares clear, no rhinorrhea or epistaxis. Mucous membranes moist. NECK: Supple. CHEST: Clear to auscultation. No respiratory distress. HEART: Regular rate and rhythm. No murmur heard. Normal peripheral pulses. ABDOMEN: Soft, diffusely tender to palpation, nondistended, normal active bowel sounds. EXTREMITIES: Normal range of motion. No edema. SKIN: Warm, dry, no rash. NEURO: No focal deficits. Alert and oriented x3. PSYCH: Normal mood and affect. Course Vital Signs Vital signs: Vital Signs Temperature 36.2 C L 11/18/22 20:50 Pulse Rate 78 11/18/22 20:50 Respiratory Rate 16 11/18/22 20:50 Blood Pressure 114/79 11/18/22 20:50 Pulse Oximetry 100 11/18/22 20:50 Oxygen Delivery Room Air 11/18/22 20:50 Temperature 36.2 C L 11/18/22 20:50 Pulse Rate 88 11/19/22 01:06 Respiratory Rate 20 11/18/22 23:31 Blood Pressure 108/73 11/19/22 01:06 Pulse Oximetry 97 11/19/22 01:06 Oxygen Delivery Room Air 11/18/22 20:50 Medical Decision Making MDM Narrative Medical decision making narrative: Differential diagnosis includes bowel obstruction, internal hernia, electrolyte abnormality small bowel obstruction, ileus Patient underwent CT abdomen pelvis with p.o. contrast and IV contrast to evaluate for possible internal hernia. CT scan showed probable
[2022-11-18 23:15] LABS: Lactic Acid Reflex 0.8 mmol/L (0.7-2.0)
[2022-11-18 23:16] LABS: Alanine Aminotransferase 20 U/L (6-35); Albumin Level 5.5 g/dL (3.5-5.1); Alkaline Phosphatase 88 U/L (38-126); Anion Gap 12 mmol/L (8-16); Aspartate Amino Transferase 27 U/L (14-36); Blood Urea Nitrogen 12 mg/dL (7-17); Calcium 9.8 mg/dL (8.4-10.2); Carbon Dioxide 24 mmol/L (22-30); Chloride 104 mmol/L (98-107); Estimated CRCL calculation 73 ml/min; Estimated Glomerular Filt Rate > 60; Glucose 89 mg/dL (65-110); Lipase 45 U/L (23-300); Magnesium 1.9 mg/dL (1.6-2.3); Potassium 4.4 mmol/L (3.4-5.0); Sodium 140 mmol/L (137-145)
[2022-11-18 23:31] VITALS: BP 99/66; PULSE 70; RESP 20; O2SAT 99
[2022-11-18 23:41] LABS: Appearance Urine Clear (Clear); Bacteria Urine None Seen /hpf; Bilirubin Urine Negative (Negative); Blood Urine 3+ (Negative); Color Urine Yellow (Yellow); Glucose Urine UA Negative (Negative); Ketones Urine 4+ mg/dL (Negative); Leukocyte Esterase Ur 1+ LEU/UL (Negative); Need Manual Microscopic Reviewed; Nitrate Urine Negative (Negative); Non Pathogenic Casts 0-2; Protein Urine Trace mg/dL (Negative); Squamous Epithelial Cell Urine None seen /hpf (Few); Urobilinogen Urine 0.2 mg/dL (<2.0); WBC Urine 0-5 /hpf; pH Urine 5.5 (5.0-9.0)
[2022-11-18 23:45] LABS: Add Urine Microscopic? YES
[2022-11-19] MEDS: MORPHINE SULFATE (*CRX) 4 MG/ML INJ IV PUSH ×2 (00:20→02:08)
[2022-11-19 00:41] LABS: Serum Qual hCG Negative
[2022-11-19 00:42] LABS: SPREG INTERNAL CONTROL Positive
[2022-11-19 01:06] VITALS: BP 108/73; PULSE 88; O2SAT 97
[2022-11-19] MEDS: ONDANSETRON INJ 4 MG/2 ML VIAL IV PUSH (02:08)
[2022-11-19] MEDS: PANTOPRAZOLE SODIUM IV 40 MG VIAL IV PUSH (02:08)
[2022-11-19 02:26] VITALS: BP 100/66; PULSE 81; RESP 16; O2SAT 100
== END 2022-11-19 02:30 | disposition home or self-care (01) ==
PROVIDERS: Emergency Provider Emergency Medicine; PCP Nurse Practitioner Family
DX: R10.84 Generalized abdominal pain (principal); R11.2 Nausea with vomiting, unspecified; Z87.891 Personal history of nicotine dependence
CPT/HCPCS: 36415; 74177; 80053; 81001; 83605; 83690; 83735; 84703; 85025; 96361; 96374; 96375; 96376; 99284; C9113; J2270; J2405; J7030; Q9967

== ENCOUNTER 2023-02-22 12:03 | Emergency (ER) | payer OTHER, SELFPAY ==
--- NOTE | ~2023-02-22 | XR_ITS ---
EXAMINATION: XR chest 2V DATE: 02/22/2023 12:31 INDICATION: Mid to left chest pain. TECHNIQUE: Frontal and lateral views of the chest were obtained. COMPARISON: Chest 2 views 07/06/2021 FINDINGS: The chest demonstrates clear lungs without pneumonia, pleural effusion, or pneumothorax. Th e heart size is normal. IMPRESSION: 1. No acute cardiopulmonary disease. Reviewed, dictated and finalized at location A.
--- NOTE | 2023-02-22 12:10 | ECG_ITS ---
Measurements Intervals [place] Rate: 73 P: 41 GA: 142 QRS: 77 QRSD: 88 T: -30 QT: 366 QTc: 404 Interpretive Statements SINUS RHYTHM BORDERLINE ST-T WAVE ABNORMALITY- ANTEROLAT/INF LEADS BASELINE WANDER- V5 BORDERLINE ECG COMPARED TO ECG 11/17/2022 10:30:13 NO SIGNIFICANT CHANGES Electronically Signed On 02-22-2023 12:44:54 CDT by Tate Matta D.O.
[2023-02-22 12:12] VITALS: BP 138/104; PULSE 76; RESP 20; TEMP 37.2; O2SAT 100
--- NOTE | 2023-02-22 12:13 | ED.CHESTPAIN ---
HPI - Chest Pain General Chief Complaint: Shortness of Breath/Dyspnea Stated Complaint: SOB Time Seen by Provider: 02/22/23 12:09 Source: patient and RN notes reviewed Mode of arrival: ambulatory Limitations: no limitations History of Present Illness HPI narrative: Patient had gastric sleeve procedure. She has lost significant amount of weight and is actually being treated now for failure to thrive. She says that she has been having some chest discomfort with some pressure and that at times she has sharp stabbing pain when she takes a deep breath. She complains of some nausea shortness of breath no diaphoresis no vomiting complaint: chest discomfort Onset (ago): day(s) (2) Timing of current episode: episodic Prior episodes: No Onset: during rest Pain location: left chest Pain radiation: back Severity: moderate Quality: aching and dull Relieving factors: nothing Exacerbating factors: nothing Associated symptoms: nausea and dyspnea Treatment prior to arrival: none Related Data Home Medications Medication Instructions Recorded Confirmed Adults Multivitamin 1 tab-cap PO DAILY 07/17/22 12/13/22 Allergies Allergy/AdvReac Type Severity Reaction Status Date / Time No Known Allergies Allergy Verified 12/13/22 13:43 Review of Systems Review of Systems: All systems reviewed & are unremarkable except as noted in HPI and below PMFSH Past Medical History Medical History Anxiety Depression LUQ abdominal pain Post hysterectomy menopause Salpingitis Seizure disorder Vaginal delivery x 3 Surgical History Surgical History Bariatric surgery status H/O wrist surgery cyst from Left History of cholecystectomy History of hysterectomy History of sleeve gastrectomy Family History Family History Grandparent Acute myocardial infarction Mother Hypertension Other Cervical cancer Diabetes mellitus Social History Social History Smoking packs per day: 0.5 Smoking cigarettes per day: 10.0 Years smoked: 3 Smoking pack-years: 1.50 Smoking status: Former smoker Tobacco type: cigarettes Smoking end date: 08/19/10 Alcohol intake: current Alcohol use details: seldom Substance use: current Substance use type: marijuana Lack of Transportation: No Lack of Food: Sometimes True Current Housing: Decline to Answer Concerned About Future Housing: Decline to Answer Difficulty Paying Gas/Electric Bills: YES Difficulty Paying for Meds: No Currently Unemployed: YES Education: High School Diploma/GED Difficulty w/ Childcare or Family Care: No Living arrangements: with family Spiritual care concerns: No Exam Const: General: healthy appearing, no acute distress and alert Nutritional Appearance: well nourished and thin Orientation/consciousness: patient oriented x3 Limitations: no limitations Other: female nurse in room during examination. HENMT: Head: normal to inspection Ears: external ears normal Face/Nose/Sinus: Normal external nose present Face and sinus: normal facial exam Mouth: Yes moist mucous membranes Eyes: Conjunctivae: conjunctivae normal Pupils: Equal, round and reactive pupils present EOM: EOMs intact bilaterally Neck: Neck: normal visual inspection Chest: Chest palpation & inspection: normal inspection of the chest and no tenderness Resp: Effort & Inspection: normal respiratory effort Auscultation: clear to auscultation bilaterally Cardio: Rate: regular rate Rhythm: regular rhythm GI: GI Palp: Yes Soft to palpation and No Tenderness to palpation present (GI) Auscultation: normal bowel sounds Back/Spine/Pelvis: Cervical Spine: cervical ROM normal Thoracic/Lumbar Spine: thoraco-lumbar ROM normal Skin: General skin exam: normal c
[2023-02-22] MEDS: ASPIRIN 81 MG CHEWABLE TABLET 324 MG PO (12:18)
[2023-02-22 12:20] VITALS: O2SAT 100
[2023-02-22 12:26] LABS: Basophils Absolute Auto 0.05 K/mm3 (0.00-0.10); Basophils Percent Auto 0.9 % (0.0-1.0); Eosinophils Absolute Auto 0.06 K/mm3 (0.02-0.50); Hematocrit 41.6 % (35.0-49.0); Immature Granulocyte Absolute 0.01 K/mm3 (0.00-0.00); Immature Granulocyte Percent A 0.2 % (0.0-0.0); Lymphocytes Absolute Auto 3.04 K/mm3 (1.10-4.50); Lymphocytes Percent Auto 52.3 % (18.0-42.0); Mean Corpuscular HGB Conc 33.7 g/dL (32.0-36.0); Mean Corpuscular Hemoglobin 30.4 pg (27.0-31.0); Mean Corpuscular Volume 90.2 fL (78.0-102.0); Mean Platelet Volume 10.6 fl (9.2-11.8); Monocytes Percent Auto 5.2 % (2.0-11.0); Neutrophils Absolute Auto 2.4 K/mm3 (1.7-7.2); Neutrophils Percent Auto 40.4 % (50.0-70.0); Platelet Count Result 246 K/mm3 (150-420); Red Blood Count 4.61 M/mm3 (4.20-5.40); White Blood Count 5.8 K/mm3 (4.8-10.8)
[2023-02-22 12:40] LABS: D Dimer 0.19 mg/L (0.19-0.50); Partial Thromboplastin Time 27.4 SEC (23.90-30.70); Prothrombin Time 10.5 Seconds (9.50-12.10)
[2023-02-22 12:44] LABS: Alanine Aminotransferase 23 U/L (14-59); Albumin Level 4.4 g/dL (3.4-5.0); Alkaline Phosphatase 85 U/L (46-116); Anion Gap 8 mmol/L (8-16); Aspartate Amino Transferase 29 U/L (15-37); Bilirubin,Total 0.6 mg/dL (0.00-1.00); Blood Urea Nitrogen 9 mg/dL (7-18); Calcium 9.2 mg/dL (8.5-10.1); Carbon Dioxide 31 mmol/L (21-32); Chloride 104 mmol/L (98-108); Estimated CRCL calculation 51 ml/min; Estimated Glomerular Filt Rate > 60; Glucose 92 mg/dL (70-99); Magnesium 2.2 mg/dL (1.8-2.4); Osmolality Calculated 294 mOsm/kg (285-295); Potassium 4.3 mmol/L (3.5-5.1); Sodium 143 mmol/L (136-145); Total Protein 7.7 g/dL (6.4-8.2)
[2023-02-22 12:48] LABS: Troponin I < 4.0 ng/L (0.00-60.4)
[2023-02-22 12:49] LABS: CRP < 0.5 mg/dL (0.0-0.9)
[2023-02-22 13:38] VITALS: BP 125/91; PULSE 78; RESP 20; TEMP 36.7; O2SAT 100
== END 2023-02-22 13:41 | disposition home or self-care (01) ==
PROVIDERS: Emergency Provider Emergency Medicine; PCP Nurse Practitioner Family
DX: R07.89 Other chest pain (principal); Z87.891 Personal history of nicotine dependence
CPT/HCPCS: 36415; 71046; 80053; 83735; 84484; 85025; 85380; 85610; 85730; 86140; 93005; 99284; A9270

== ENCOUNTER 2023-06-11 16:54 | Emergency (ER) | payer OTHER, SELFPAY ==
[2023-06-11 16:54] VITALS: BP 102/61; PULSE 85; RESP 18; TEMP 36.7; O2SAT 100
[2023-06-11 17:01] VITALS: BP 102/70; PULSE 81; RESP 20; O2SAT 100
--- NOTE | 2023-06-11 17:01 | ED.WOUNDLAC ---
HPI - Wound/Laceration General Chief Complaint: Wound/Laceration Stated Complaint: laceration to hand Time Seen by Provider: 06/11/23 16:55 Source: patient and RN notes reviewed Mode of arrival: ambulatory Limitations: no limitations History of Present Illness Onset (ago): minute(s) (10) Extremity Location: Left: hand Place: home Patient tetanus UTD: No Context: accidental (on a can of tuna) Associated symptoms: pain Treatments prior to arrival: bandage Related Data Home Medications Medication Instructions Recorded Confirmed buspirone 5 mg tablet 5 mg PO BID 06/11/23 06/11/23 lamotrigine 200 mg tablet 200 mg PO BID 06/11/23 06/11/23 Allergies Allergy/AdvReac Type Severity Reaction Status Date / Time No Known Allergies Allergy Verified 04/25/23 14:39 Review of Systems Review of Systems: All systems reviewed & are unremarkable except as noted in HPI and below PMFSH Past Medical History Medical History Anxiety Depression LUQ abdominal pain Post hysterectomy menopause Salpingitis Seizure disorder Vaginal delivery x 3 Surgical History Surgical History Bariatric surgery status H/O wrist surgery cyst from Left History of cholecystectomy History of hysterectomy History of sleeve gastrectomy Family History Family History Grandparent Acute myocardial infarction Mother Hypertension Other Cervical cancer Diabetes mellitus Social History Social History Smoking packs per day: 0.5 Smoking cigarettes per day: 10.0 Years smoked: 3 Smoking pack-years: 1.50 Smoking status: Former smoker Tobacco type: cigarettes Smoking end date: 08/19/10 Alcohol intake: current Alcohol use details: seldom Substance use: current Substance use type: marijuana Lack of Transportation: No Lack of Food: Sometimes True Current Housing: Decline to Answer Concerned About Future Housing: Decline to Answer Difficulty Paying Gas/Electric Bills: YES Difficulty Paying for Meds: No Currently Unemployed: YES Education: High School Diploma/GED Difficulty w/ Childcare or Family Care: No Living arrangements: with family Spiritual care concerns: No Exam Const: General: healthy appearing, no acute distress and alert Nutritional Appearance: well nourished Orientation/consciousness: patient oriented x3 Limitations: no limitations Other: Female nurse in room during examination HENMT: Head: normal to inspection Ears: external ears normal Face/Nose/Sinus: Normal external nose present Face and sinus: normal facial exam Mouth: Yes moist mucous membranes Eyes: Conjunctivae: conjunctivae normal Pupils: Equal, round and reactive pupils present EOM: EOMs intact bilaterally Neck: Neck: normal visual inspection Resp: Effort & Inspection: normal respiratory effort Auscultation: clear to auscultation bilaterally Cardio: Rate: regular rate Rhythm: regular rhythm GI: GI Palp: Yes Soft to palpation and No Tenderness to palpation present (GI) Auscultation: normal bowel sounds Back/Spine/Pelvis: Cervical Spine: cervical ROM normal Thoracic/Lumbar Spine: thoraco-lumbar ROM normal Skin: General skin exam: normal color Wounds: wounds noted laceration left palmar palm size (1.5 cm) Neuro: General: patient oriented x3, moves all extremities, no focal motor deficits and CN's II-XI intact bilaterally Speech: normal speech Gait exam (Neuro): Normal gait present Extrem: General: normal to inspection and no clubbing, cyanosis or edema Psych: Mental Status: mental status grossly normal Affect: normal affect Attitude: cooperative Procedures Laceration Laceration 1: Site: hand Side (If applicable): left Size (cm): 1.5 Description: linear Dep
[2023-06-11] MEDS: TETANUS,DIPHTHERIA,AC PERTUSSIS ADULT 0.5 ML (ADACEL) IM (17:21)
== END 2023-06-11 17:46 | disposition home or self-care (01) ==
LOC: CHSED 17:31
PROVIDERS: Emergency Provider Emergency Medicine; PCP Nurse Practitioner Family
DX: S61.412A Laceration without foreign body of left hand, initial encounter (principal); F41.9 Anxiety disorder, unspecified; F32.A Depression, unspecified; Z79.899 Other long term (current) drug therapy; Z87.891 Personal history of nicotine dependence; Z23 Encounter for immunization; W26.8XXA Contact with other sharp object(s), not elsewhere classified, initial encounter
CPT/HCPCS: 12001; 90471; 90715; 99282

== ENCOUNTER 2023-08-15 15:16 | Outpatient (CLI) | payer OTHER, SELFPAY ==
--- NOTE | 2023-08-15 15:32 | ECG_ITS ---
Measurements Intervals [place] Rate: 56 P: 35 OR: 148 QRS: 77 QRSD: 88 T: 64 QT: 411 QTc: 397 Interpretive Statements SINUS BRADYCARDIA COMPARED TO ECG 02/22/2023 12:15:59 SINUS BRADYCARDIA NOW PRESENT Electronically Signed On 08-16-2023 16:24:45 MOTIVATIONAL SPEAKER by Piyush Galan M.D.
[2023-08-15 16:04] LABS: Troponin I < 4.0 ng/L (0.00-60.4)
== END 2023-08-15 15:17 | disposition home or self-care (01) ==
PROVIDERS: PCP Nurse Practitioner Family; Visit Provider Nurse Practitioner Family
DX: R07.9 Chest pain, unspecified (principal); R00.1 Bradycardia, unspecified
CPT/HCPCS: 36415; 84484; 93005

== ENCOUNTER 2023-08-21 09:02 | Outpatient (CLI) | payer OTHER, SELFPAY ==
--- NOTE | 2023-08-26 09:35 | WPDHOLTEREM ---
Holter/Event Monitor Holter/Event Monitor Date of procedure: 08/21/23 Holter/Event Procedure: 48 Hr Holter Monitor Indications: Bradycardia Conclusion: 1. 48 hour holter monitor on 08/21/23. 2. Underlying rhythm is sinus rhythm. HR range 35-141 bpm; average HR 68 bpm. HR at 35 bpm was at 05:00. HR at 141 bpm was at 14:07. 3. There are 237 premature supraventricular complexes and 22 supraventricular couplets. No supraventricular tachycardia. 4. There is 1 premature ventricular complex. No ventricular tachycardia. 5. No sinoatrial or atrioventricular blocks. No significant pauses greater than 2 seconds. 6. Patient reports symptoms of racing heart, dizziness, chest pressure, lightheadedness, left arm pain which demonstrate sinus rhythm, HR range 60-110 bpm.
== END 2023-08-21 09:03 | disposition home or self-care (01) ==
LOC: CHSCARD 09:04
PROVIDERS: PCP Nurse Practitioner Family; Visit Provider Nurse Practitioner Family
DX: R07.9 Chest pain, unspecified (principal); R00.1 Bradycardia, unspecified
CPT/HCPCS: 93225; 93226

== ENCOUNTER 2023-09-10 11:06 | Emergency (ER) | payer OTHER, SELFPAY ==
--- NOTE | ~2023-09-10 | XR_ITS ---
EXAMINATION: XR chest 2V 09/10/2023 13:08 INDICATION: Chest pain PROCEDURE: 2 view chest COMPARISON: 02/22/2023 FINDINGS: The lungs are clear. The cardiomediastinal silhouette is within normal limits. There are no pleural effusions. There is no pneumothorax suspected. There are surgical changes of the upper a bdomen. IMPRESSION: 1: NO ACUTE CARDIOPULMONARY DISEASE. Reviewed, dictated and finalized at location L. ATIONAL THERAPY TEACHER
--- NOTE | ~2023-09-10 | CT_ITS ---
EXAMINATION: CTA chest PE protocol DATE: 09/10/2023 17:44 INDICATION: Near syncope. TECHNIQUE: Computed tomography angiography (CTA) of the chest was performed with 100 mL Omnipaque-350 intravenous contrast timed to evaluate the pulmonary arteries. Coronal maximum intensity projection 3D-reconstructions were created by the technologist. Automated exposure control and iterative reconst ruction technique were employed. The dose-length product was 164.31 mGy-cm. COMPARISON: CT abdomen and pelvis 11/19/2022 FINDINGS: Again seen is a 5 mm groundglass nodule in right lower lobe, likely benign. No pleural effu wang. The heart size is normal. No pericardial effusion. There is no pulmonary embolus. There are keerthi gical changes of the stomach. There are changes of cholecystectomy. There is mild thoracic spondylosi s. IMPRESSION: 1. No pulmonary embolus. Reviewed, dictated and finalized at location E. SHEET MAKER IMPRESSION: 1. No pulmonary embolus.
[2023-09-10 11:36] VITALS: BP 144/94; PULSE 93; RESP 16; TEMP 36.3; O2SAT 100
--- NOTE | 2023-09-10 11:40 | ECG_ITS ---
Measurements Intervals [place] Rate: 77 P: 73 NM: 152 QRS: -10 QRSD: 81 T: 53 QT: 358 QTc: 406 Interpretive Statements SINUS RHYTHM VOLTAGE CRITERIA FOR LVH CONSIDER INFERIOR INFARCT, AGE INDETERMINATE BORDERLINE ST-T WAVE ABNORMALITY- ANTEROLAT/HIGH LAT LEADS BASELINE WANDER- AVL, V3 ABNORMAL ECG COMPARED TO ECG 08/15/2023 15:45:35 SINUS RHYTHM NOW PRESENT Electronically Signed On 09-10-2023 12:53:53 WORLD GEOGRAPHY TEACHER by Tate Matta D.O.
[2023-09-10 12:29] LABS: Basophils Absolute Auto 0.1 K/mm3 (0.0-0.1); Basophils Percent Auto 0.9 % (0.2-1.2); Eosinophils Absolute Auto 0.1 K/mm3 (0-0.3); Eosinophils Percent Auto 1.7 % (0-4.4); Hematocrit 40.8 % (37.0-47.0); Immature Granulocyte Absolute 0.02 K/mm3 (0.00-0.031); Immature Granulocyte Percent A 0.3 % (0-0.5); Lymphocytes Absolute Auto 2.19 K/mm3 (0.9-3.2); Lymphocytes Percent Auto 37.8 % (18.3-44.2); Mean Corpuscular HGB Conc 34.3 g/dl (32-36); Mean Corpuscular Volume 90.5 fl (80-100); Mean Platelet Volume 9.4 fl (7.4-10.4); Monocytes Absolute Auto 0.3 K/mm3 (0.1-0.6); Monocytes Percent Auto 4.8 % (2.6-8.5); Neutrophils Absolute Auto 3.2 K/mm3 (1.3-6.7); Neutrophils Percent Auto 54.5 % (45.5-73.1); Platelet Count Result 251 k/mm3 (150-375); Red Blood Count 4.51 M/mm3 (4.2-5.4); White Blood Count 5.8 K/mm3 (4.5-10.0)
[2023-09-10 12:30] VITALS: O2SAT 98
[2023-09-10 12:40] LABS: Alanine Aminotransferase 40 U/L (6-35); Albumin Level 4.9 g/dL (3.5-5.1); Alkaline Phosphatase 76 U/L (38-126); Anion Gap 10 mmol/L (8-16); Aspartate Amino Transferase 39 U/L (14-36); Bilirubin,Total 0.6 mg/dL (0.2-1.3); Blood Urea Nitrogen 15 mg/dL (7-17); Calcium 9.5 mg/dL (8.4-10.2); Carbon Dioxide 30 mmol/L (22-30); Chloride 101 mmol/L (98-107); Estimated CRCL calculation 77 ml/min; Estimated Glomerular Filt Rate > 60; Glucose 90 mg/dL (65-110); Lipase 38 U/L (23-300); Sodium 141 mmol/L (137-145)
[2023-09-10 12:51] LABS: Troponin I < 0.012 ng/mL (0.000-0.034)
[2023-09-10 12:53] LABS: INR 0.9; Prothrombin Time 12.6 Seconds (11.1-14.7)
[2023-09-10 12:54] LABS: Partial Thromboplastin Time 27.5 SECONDS (22.3-36.8)
[2023-09-10 14:47] VITALS: BP 107/81; PULSE 78; RESP 16; TEMP 36.6; O2SAT 100
--- NOTE | 2023-09-10 14:48 | ECG_ITS ---
Measurements Intervals [place] Rate: 67 P: 19 SD: 139 QRS: 71 QRSD: 85 T: 59 QT: 378 QTc: 401 Interpretive Statements SINUS RHYTHM NORMAL ECG COMPARED TO ECG 09/10/2023 12:26:51 NO SIGNIFICANT CHANGES Electronically Signed On 09-10-2023 15:05:12 COFFEE MAKER by Tate Matta D.O.
[2023-09-10 15:41] LABS: Troponin I < 0.012 ng/mL (0.000-0.034)
--- NOTE | 2023-09-10 17:01 | ED.DIZZY ---
HPI - Dizziness General Chief Complaint: Syncope <Diomedes Collazo MD - Last Filed: 09/10/23 18:50> Stated Complaint: near syncope <Diomedes Collazo MD - Last Filed: 09/10/23 18:50> Time Seen by Provider: 09/10/23 12:45 <Diomedes Collazo MD - Last Filed: 09/10/23 18:50> Focused HPI: This is a 32-year-old female that presents to the emergency department for near syncopal episode today. Reports she was standing in the kitchen and started to feel very lightheaded as if she was going to pass out. She is currently being worked up by Cardiology for this issue. Reports associated chest discomfort and palpitations. GENERAL: Well-appearing, well-nourished, and in no acute distress. HEAD: Normocephalic, atraumatic. CHEST: Clear to auscultation. No respiratory distress. HEART: Regular rate and rhythm. NEURO: Alert and oriented x3. Patient screened in triage and initial orders placed. Additional care and disposition to be based upon diagnostic testing and treatment. <Mirela Barfield PA-C - Last Filed: 09/10/23 18:33> History of Present Illness HPI Narrative: 32-year-old female presenting to the emergency department for evaluation after having a near syncopal episode. Patient states she was in her kitchen when she felt like she was lightheaded. Patient states she was able to drop to her knees and crawl to the bedroom. Patient states she did have some tachycardia and her heart rate went from 175 down to 45. Patient states she has been having workup with Cardiology for this issue. Patient denies any loss of consciousness. Patient reports she is currently being worked up for bradycardia by Cardiology, Dr Matta <Diomedes Collazo MD - Last Filed: 09/10/23 18:50> Related Data Home Medications: Home Medications Medication Instructions Recorded Confirmed buspirone 5 mg tablet 5 mg PO BID 06/11/23 06/27/23 lamotrigine 200 mg tablet 200 mg PO BID 06/11/23 06/27/23 <Diomedes Collazo MD - Last Filed: 09/10/23 18:50> Allergies/Adverse Reactions: Allergies Allergy/AdvReac Type Severity Reaction Status Date / Time No Known Allergies Allergy Verified 08/15/23 14:31 <Diomedes Collazo MD - Last Filed: 09/10/23 18:50> Review of Systems Review of Systems: All systems reviewed & are unremarkable except as noted in HPI and below <Diomedes Collazo MD - Last Filed: 09/10/23 18:50> PMFSH Past Medical History Medical History: Medical History Anxiety Depression LUQ abdominal pain Post hysterectomy menopause Salpingitis Seizure disorder Vaginal delivery x 3 <Diomedes Collazo MD - Last Filed: 09/10/23 18:50> Surgical History Surgical History: Surgical History Bariatric surgery status H/O wrist surgery cyst from Left History of cholecystectomy History of hysterectomy History of sleeve gastrectomy <Diomedes Collazo MD - Last Filed: 09/10/23 18:50> Family History Family History: Family History Grandparent Acute myocardial infarction Mother Hypertension Other Cervical cancer Diabetes mellitus <Diomedes Collazo MD - Last Filed: 09/10/23 18:50> Social History Social History: Social History Smoking packs per day: 0.5 Smoking cigarettes per day: 10.0 Years smoked: 3 Smoking pack-years: 1.50 Smoking status: Former smoker Tobacco type: cigarettes Smoking end date: 08/19/10 Alcohol intake: current Alcohol use details: seldom Substance use: current Substance use type: marijuana Lack of Transportation: No Lack of Food: Sometimes True Current Housing: Decline to Answer Concerned About Future Housing: Decline to Answer Difficulty Paying Gas/Electric Bills: YES Difficulty Paying for Meds: No Currently Unemploy
[2023-09-10 17:59] VITALS: BP 124/87; PULSE 95; RESP 14; O2SAT 100
[2023-09-10 18:22] VITALS: BP 116/72; PULSE 87; RESP 20; O2SAT 100
[2023-09-10 18:49] LABS: Troponin I < 0.012 ng/mL (0.000-0.034)
== END 2023-09-10 18:27 | disposition home or self-care (01) ==
PROVIDERS: Physician Assistant; Emergency Provider Emergency Medicine; PCP Nurse Practitioner Family
DX: R55 Syncope and collapse (principal); G40.909 Epilepsy, unspecified, not intractable, without status epilepticus; Z98.84 Bariatric surgery status; Z87.891 Personal history of nicotine dependence; Z90.710 Acquired absence of both cervix and uterus; Z90.49 Acquired absence of other specified parts of digestive tract; R94.31 Abnormal electrocardiogram [ECG] [EKG]
CPT/HCPCS: 36415; 71046; 71275; 80053; 83690; 84484; 85025; 85610; 85730; 93005; 99284; Q9967

== ENCOUNTER 2023-09-16 13:41 | Outpatient (CLI) | payer OTHER, SELFPAY ==
--- NOTE | 2023-09-16 13:47 | ECHO_ITS ---
Patient Info Name: Adrienne Tom Age: 32 years : 1990 Gender: Female Ht: 63 in Wt: 111 lbs BSA: 1.49 m2 HR: 88 bpm BP: 128 / 77 mmHg Heart Rhythm: Sinus Rhythm Technical Quality: Good Exam Date: 09/16/2023 3:08 PM Exam Location: Echo Lab Patient Status: Outpatient Admit Date: 09/16/2023 Staff Ordering Physician: Fabien Spring APRN Molasses Feed Mixer: Yudi Pimentel RDCS Attending Provider: Fabien Spring APRN Exam Type: CA echo doppler color flow Study Info Indications - BRADYCARDIA Complete two-dimensional, color flow and Doppler transthoracic echocardiogram is performed. Summary 1. Complete two-dimensional, color flow and Doppler transthoracic echocardiogram is performed. 2. Left ventricular chamber dimension is normal. 3. Left ventricular systolic function is normal, estimated at 60-65%. 4. The left ventricular diastolic function is normal. 5. E/e' 6 is not elevated. 6. There is mild tricuspid valve regurgitation. 7. No pulmonary hypertension, estimated pulmonary arterial systolic pressure is 23 mmHg. Left Ventricle E/e' 6 is not elevated. Left ventricular chamber dimension is normal. Left ventricular systolic function is normal, estimated at 60-65%. The left ventricular diastolic function is normal. Right Ventricle Right ventricular systolic function is normal and with normal TAPSE 2.6 cm. Right ventricular chamber dimension is normal. Left Atria Left atrial chamber dimension is normal. Right Atria Right atrial chamber dimension is normal. Aortic Valve The aortic valve is trileaflet. There is no aortic valve stenosis. There is no aortic valve regurgitation. Pulmonic Valve There is no pulmonic regurgitation. Mitral Valve There is no mitral valve stenosis. There is no mitral valve regurgitation. Tricuspid Valve There is mild tricuspid valve regurgitation. No pulmonary hypertension, estimated pulmonary arterial systolic pressure is 23 mmHg. Pericardium/Pleural There is no pericardial effusion. Inferior Vena Cava Normal inferior vena cava with >50% collapse upon inspiration consistent with normal right atrial pressure, 5 mmHg. Aorta The aortic root size at the sinus of Valsalva is normal. Left Ventricular Outflow Tract Name Value Normal LVOT 2D LVOT Diameter 1.9 cm LVOT Doppler LVOT Peak Velocity 101 cm/s LVOT Peak Gradient 4 mmHg LVOT Mean Gradient 3 mmHg LVOT VTI 26 cm LVOT VTI/AV VTI Ratio 0.9 LVOT Stroke Volume 73 ml Pulmonic Valve Name Value Normal RVOT Doppler RVOT Peak Gradient 2 mmHg PV Doppler PV Peak Velocity 80 cm/s PV Peak Gradient 3 mmHg Mitral Valve
== END 2023-09-16 13:42 | disposition home or self-care (01) ==
LOC: CHSIMG 13:43
PROVIDERS: PCP Nurse Practitioner Family; Visit Provider Nurse Practitioner Family
DX: R07.9 Chest pain, unspecified (principal); R00.1 Bradycardia, unspecified; I07.1 Rheumatic tricuspid insufficiency
CPT/HCPCS: 93306

== ENCOUNTER 2023-10-02 12:53 | Outpatient (CLI) | payer OTHER, SELFPAY ==
--- NOTE | 2023-10-02 14:20 | NEURO_ITS ---
Impression: # Complains of wrist pain. # Normal Nerve Conduction Study. # No Carpal Tunnel Syndrome or ulnar neuropathy. # Normal needle/EMG exam. # Clinical correlation recommended. Nerve Conduction Studies Anti Sensory Summary Table Stim Site NR Peak (ms) P-T Amp (?V) Site1 Site2 Delta-P (ms) Dist (cm) Rick (m/s) Left Median Anti Sensory (2-3nd Digit) Wrist 2.8 95.5 Wrist 2-3nd Digit 2.8 14.0 50 Wrist 2.7 70.9 Wrist 2-3nd Digit 2.8 14.0 50 Left Radial Anti Sensory (Base 1st Digit) Wrist 1.4 29.5 Wrist Base 1st Digit 1.4 0.0 Left Ulnar Anti Sensory (5th Digit) Wrist 2.3 61.9 Wrist 5th Digit 2.3 14.0 61 Motor Summary Table Stim Site NR Onset (ms) O-P Amp (mV) Site1 Site2 Delta-0 (ms) Dist (cm) Rick (m/s) Left Median Motor (Abd Poll Brev) Wrist 2.7 8.1 Elbow Wrist 4.3 26.0 60 Elbow 7.0 7.4 Left Ulnar Motor (Abd Dig Minimi) Wrist 2.2 6.9 A Elbow Wrist 4.8 28.0 58 A Elbow 7.0 6.4 F Wave Studies NR F-Lat (ms) L-R F-Lat (ms) Left Median (Mrkrs) (Abd Poll Brev) 26.67 Left Ulnar (Mrkrs) (Abd Dig Min) 27.08 EMG Side Muscle Nerve Root Ins Act Fibs Amp Dur Recrt Comment Left 1stDorInt Ulnar C8-T1 Nml Nml Nml Nml Nml Left Ext Indicis Radial (Post Int) C7-8 Nml Nml Nml Nml Nml Left Ext Digitorum Radial (Post Int) C7-8 Nml Nml Nml Nml Nml Left BrachioRad Radial C5-6 Nml Nml Nml Nml Nml Left PronatorTeres Median C6-7 Nml Nml Nml Nml Nml Left Abd Poll Brev Median C8-T1 Nml Nml Nml Nml Nml Left ABD Dig Min Ulnar C8-T1 Nml Nml Nml Nml Nml MTDD
== END 2023-10-02 12:54 | disposition home or self-care (01) ==
LOC: ANHNEURO 12:54
PROVIDERS: PCP Nurse Practitioner Family; Visit Provider Plastic Surgery
DX: M25.532 Pain in left wrist (principal)
CPT/HCPCS: 95886; 95909

== ENCOUNTER 2023-11-28 07:45 | Outpatient (CLI) | payer OTHER, SELFPAY ==
--- NOTE | ~2023-11-28 | CT_ITS ---
EXAMINATION: CTA brain carotid DATE: 11/28/2023 09:42 INDICATION: Anisocoria. Headache. Dizziness. Epilepsy. TECHNIQUE: Computed tomographic angiography (CTA) of the head was performed without and with 100 mL O mnipaque-350 intravenous contrast. CTA of the neck was performed with intravenous contrast. Automated exposure control and iterative reconstruction technique were employed. The dose-length product was 1 470.19 mGy-cm. Maximum intensity projection and volume rendered 3D-reconstructions were created by brenda lund technologist on a separate workstation. COMPARISON: Brain MRI 11/28/2023 FINDINGS: HEAD CTA: There is no intracranial hemorrhage, acute infarction, or abnormal intracranial mass lesion . The ventricles are normal in size. There is mild mucosal thickening in the paranasal sinuses. The m astoid air cells are normal. The orbits are normal. The vertebral arteries are codominant. There is n o significant stenosis of basilar artery or the posterior cerebral arteries. There is no significant stenosis of the intracranial internal carotid arteries or anterior or middle cerebral arteries. Anter ior communicating artery is normal. The posterior communicating arteries are normal. There is no aneu rysm. NECK CTA: There is a 3 mm nodule in left thyroid lobe, likely not clinically significant. There are n o pathologically enlarged lymph nodes. There is no significant stenosis of the vertebral arteries. Th ere is mild plaque in the proximal internal carotid arteries. There is 0% stenosis of the proximal ri ght internal carotid artery relative to normal distal artery lumen diameter (NASCET criteria). There is 0% stenosis of the proximal left internal carotid artery relative to normal distal artery lumen di ameter. There is moderate spondylosis at C5-C6. IMPRESSION: 1. Normal brain. No aneurysm or significant intracranial arterial stenosis. 2. 0% stenosis of the proximal internal carotid arteries relative to normal distal artery lumen diame ters (NASCET criteria). Reviewed, dictated and finalized at location A. IMPRESSION: 1. Normal brain. No aneurysm or significant intracranial arterial stenosis. 2. 0% stenosis of the proximal internal carotid arteries relative to normal dis ciara artery lumen diameters (NASCET criteria).
--- NOTE | ~2023-11-28 | MR_ITS ---
EXAMINATION: MR brain/brain stem wo/w con DATE: 11/28/2023 08:38 INDICATION: Anisocoria. TECHNIQUE: Magnetic resonance imaging (MRI) of the brain and brainstem was performed without and with 10 mL MultiHance intravenous contrast. COMPARISON: None. FINDINGS: There is a focus of increased T2-weighted signal intensity in the left frontal lobe deep wh ite matter, which is normal as an isolated finding. There is no intracranial hemorrhage, acute infarc tion, or abnormal intracranial mass lesion. The ventricles are normal in size. The orbits are normal. There is mild mucosal thickening in the paranasal sinuses. The mastoid air cells are normal. IMPRESSION: 1. Normal brain. Reviewed, dictated and finalized at location A. IMPRESSION: 1. Normal brain.
[2023-11-28 09:19] LABS: Estimated Glomerular Filt Rate > 60
== END 2023-11-28 07:46 | disposition home or self-care (01) ==
LOC: CHSIMG 07:46
PROVIDERS: PCP Nurse Practitioner Family; Visit Provider Student in an Organized Health Care Education/Training Program
DX: H57.02 Anisocoria (principal)
CPT/HCPCS: 70496; 70498; 70553; A9577; Q9967

== ENCOUNTER 2023-12-16 16:11 | Outpatient (CLI) | payer OTHER, SELFPAY ==
--- NOTE | 2023-12-16 17:03 | ECG_ITS ---
SEE SCANNED COPY FOR CONFIRMED REPORT. MTDD
[2023-12-16 17:09] LABS: Basophils Absolute Auto 0.04 K/mm3 (0.00-0.10); Basophils Percent Auto 0.6 % (0.0-1.0); Eosinophils Absolute Auto 0.04 K/mm3 (0.02-0.50); Eosinophils Percent Auto 0.6 % (1.0-6.0); Hematocrit 40.1 % (35.0-49.0); Hemoglobin 13.6 g/dL (12.0-15.0); Immature Granulocyte Absolute 0.01 K/mm3 (0.00-0.00); Immature Granulocyte Percent A 0.2 % (0.0-0.0); Lymphocytes Absolute Auto 2.85 K/mm3 (1.10-4.50); Lymphocytes Percent Auto 45.5 % (18.0-42.0); Mean Corpuscular HGB Conc 33.9 g/dL (32-36); Mean Corpuscular Hemoglobin 30.7 pg (27.0-31.0); Mean Corpuscular Volume 90.5 fL (78.0-102.0); Mean Platelet Volume 10.2 fl (9.2-11.8); Monocytes Absolute Auto 0.29 K/mm3 (0.10-0.90); Monocytes Percent Auto 4.6 % (2.0-11.0); Neutrophils Absolute Auto 3.03 K/mm3 (1.70-7.20); Neutrophils Percent Auto 48.5 % (50.0-70.0); Platelet Count Result 256 K/mm3 (150-420); Red Blood Count 4.43 M/mm3 (4.20-5.40); Red Cell Distribution Width 11.3 % (11.6-14.4); White Blood Count 6.3 K/mm3 (4.8-10.8)
[2023-12-16 17:47] LABS: Alanine Aminotransferase 14 U/L (14-59); Albumin Level 4.7 g/dL (3.4-5.0); Alkaline Phosphatase 84 U/L (46-116); Anion Gap 12 mmol/L (4-12); Aspartate Amino Transferase 21 U/L (15-37); Bilirubin,Total 0.7 mg/dL (0.00-1.00); Blood Urea Nitrogen 15 mg/dL (7-18); Calcium 9.3 mg/dL (8.5-10.1); Carbon Dioxide 29 mmol/L (21-32); Chloride 102 mmol/L (98-108); Estimated Glomerular Filt Rate > 60; Glucose 92 mg/dL (70-99); Osmolality Calculated 296 mOsm/kg (285-295); Potassium 3.5 mmol/L (3.5-5.1); Sodium 143 mmol/L (136-145); Thyroid Stimulating Hormone 1.15 uIU/mL (0.36-3.74); Total Protein 7.6 g/dL (6.4-8.2); Vitamin B12 380 pg/mL (193-986)
[2023-12-16 17:48] LABS: CRP < 0.5 mg/dL (0.0-0.9); Troponin I < 4.0 ng/L (0.00-60.4)
[2023-12-16] MEDS: SODIUM CHLORIDE 0.9% IV 1,000 ML 999 ML IV CONT (17:50)
[2023-12-16 18:03] VITALS: BP 118/76; PULSE 76; RESP 14; TEMP 36.5; O2SAT 97
[2023-12-16 19:45] VITALS: BP 106/78; PULSE 72; RESP 16; TEMP 36.5; O2SAT 98
--- NOTE | 2023-12-16 19:49 | PC.NURSE ---
Patient sent from doctor's office for IV hydration. Patient is alert and oriented. Able to make needs known. Ambulated to floor and placed in room. IV line inserted and IV of NS started. Approximately 1/[address] through IV infusion patient c/o IV irritating her arm. IV slowed down and patient tolerated slower rate. IV completed and IV D/Cd. Patient states she feels better. Vital signs taken before and after fluids. Patient ambulated to car.
[2023-12-17 10:59] LABS: Magnesium 2.1 mg/dL (1.8-2.4)
[2023-12-17 23:28] LABS: FSH 149.2 mIU/mL; LH 47.7 mIU/mL
[2023-12-20 17:48] LABS: Vitamin B6 17.6 ng/mL (2.1-21.7)
[2023-12-21 22:13] LABS: Estradiol, Ultrasensitive <2 pg/mL
== END 2023-12-16 16:12 | disposition home or self-care (01) ==
LOC: CHSLAB 16:12
PROVIDERS: PCP Nurse Practitioner Family; Visit Provider Nurse Practitioner Family
DX: R19.7 Diarrhea, unspecified (principal); R61 Generalized hyperhidrosis; R20.2 Paresthesia of skin; R00.0 Tachycardia, unspecified; E86.0 Dehydration
CPT/HCPCS: 36415; 80053; 82607; 82670; 83001; 83002; 83735; 84207; 84443; 84484; 85025; 86140; 93005; 96360; J7030

== ENCOUNTER 2023-12-17 12:16 | Outpatient (CLI) | payer OTHER, SELFPAY ==
[2023-12-17 12:24] LABS: Occult Blood Negative (Negative)
== END 2023-12-17 12:17 | disposition home or self-care (01) ==
LOC: CHSLAB 12:18
PROVIDERS: PCP Nurse Practitioner Family; Visit Provider Nurse Practitioner Family
DX: R00.0 Tachycardia, unspecified (principal); R19.7 Diarrhea, unspecified
CPT/HCPCS: 82272; 87045; 87427; 87449

== ENCOUNTER 2024-02-27 01:23 | Day surgery (SDC) | payer OTHER, SELFPAY ==
[2024-02-13 13:10] VITALS: BMI 19.5
[2024-02-27 13:21] VITALS: BP 122/73; PULSE 70; RESP 20; TEMP 36.3; O2SAT 100; BMI 19.4
--- NOTE | 2024-02-27 13:43 | WPDANESEPPF ---
Anes - Initial Pre Proc Eval Procedure: Operation Date: 02/27/24 14:30 Proposed Procedures p Colonoscopy - Gene Aguirre MD Date/Time: 02/27/24 13:43 Surgeon: Gene Aguirre MD Pre Op Diagnosis: Acquired absence of stomach(part of) Patient Data Age: 33 Gender: F Height: 1.6 m Weight: 49.7 kg Last Vital Signs Temp 97.3 F L 02/27/24 13:21 Pulse 70 02/27/24 13:21 Resp 20 02/27/24 13:21 BP 122/73 02/27/24 13:21 Pulse Ox 100 02/27/24 13:21 O2 Del Method Room Air 02/27/24 13:21 Allergies Allergy/AdvReac Type Severity Reaction Status Date / Time No Known Allergies Allergy Verified 02/27/24 13:20 Home Medications Medication Instructions Recorded Confirmed Type buspirone 5 mg tablet 5 mg PO BID 06/11/23 02/27/24 History clonazepam 0.5 mg tablet (Klonopin) 0.5 mg PO QHS 10/02/23 02/27/24 History lamotrigine 200 mg tablet 200 mg PO BID #60 tabs 02/19/24 02/27/24 Rx Patient hx anesthesia problems: none Family hx anesthesia problems: none Results Review: All pre-operative results and documents have been reviewed as part of the pre-operative evaluation. [facility] Past Medical History Medical History Anxiety Depression Failure to thrive Lumbar degenerative disc disease LUQ abdominal pain Post hysterectomy menopause Salpingitis Seizure disorder Vaginal delivery x 3 Surgical History Surgical History Bariatric surgery status H/O wrist surgery cyst from Left History of cholecystectomy History of hysterectomy History of sleeve gastrectomy S/P gastric sleeve procedure Family History Family History Grandparent Acute myocardial infarction Mother Hypertension Other Cervical cancer Diabetes mellitus Social History Social History Smoking packs per day: 0.5 Smoking cigarettes per day: 10.0 Years smoked: 3 Smoking pack-years: 1.50 Smoking status: Former smoker Tobacco type: cigarettes Smoking end date: 08/19/10 Alcohol intake: current Alcohol use details: seldom Substance use: current Substance use type: marijuana Other substance usage details: THC edibles Do You Feel Safe in your Home?: Yes Lack of Transportation: No Lack of Food: Sometimes True Current Housing: I Have Housing Concerned About Future Housing: YES Difficulty Paying Gas/Electric Bills: YES Difficulty Paying for Meds: No Currently Unemployed: YES Education: High School Diploma/GED Difficulty w/ Childcare or Family Care: No Living arrangements: with family Spiritual care concerns: No Anes - Eval Final PreProcedure Day of Procedure 02/27/24 13:43 Patient weight: normal Heart: regular rate and rhythm Lungs: clear to auscultation Airway: Mallampati scale class II Neurological: alert and oriented Last oral intake: >/= 8 hours ASA classification: III Emergent: no Anesthetic plan: proceed Anesthesia type and monitoring: general GIVS and standard monitoring Results Review: All pre-operative results and documents have been reviewed as part of the pre-operative evaluation. Informed Consent: The patient's anesthetic plan and its attendant risks and benefits were discussed with the patient/family/POA. Questions were solicited and answers provided to the satisfaction of the patient/family/POA.
[2024-02-27] MEDS: LACTATED RINGERS 1,000 ML 150 ML IV CONT (14:07)
--- NOTE | 2024-02-27 14:24 | PM.HPGS ---
History of Present Illness History of Present Illness Consent: Risks, benefits, and alternatives have been discussed and questions answered. Patient agrees to proceed with procedure. Chief complaint: Acquired absence of stomach(part of) Narrative: Adrienne Tom is a 33 year old female with loose stools for last 2 years ever since she had gastric sleeve (it was done in [place]), she had EGD elsewhere and was told that no major findings. She is worried because unable to keep weight and malabsorption , never had colonoscopy. Review of Systems Review of Systems: All systems reviewed & are unremarkable except as noted in HPI and below PMFSH Past Medical History Medical History Anxiety Depression Failure to thrive Lumbar degenerative disc disease LUQ abdominal pain Post hysterectomy menopause Salpingitis Seizure disorder Vaginal delivery x 3 Surgical History Surgical History Bariatric surgery status H/O wrist surgery cyst from Left History of cholecystectomy History of hysterectomy History of sleeve gastrectomy S/P gastric sleeve procedure Family History Family History Grandparent Acute myocardial infarction Mother Hypertension Other Cervical cancer Diabetes mellitus Social History Social History Smoking packs per day: 0.5 Smoking cigarettes per day: 10.0 Years smoked: 3 Smoking pack-years: 1.50 Smoking status: Former smoker Tobacco type: cigarettes Smoking end date: 08/19/10 Alcohol intake: current Alcohol use details: seldom Substance use: current Substance use type: marijuana Other substance usage details: THC edibles Do You Feel Safe in your Home?: Yes Lack of Transportation: No Lack of Food: Sometimes True Current Housing: I Have Housing Concerned About Future Housing: YES Difficulty Paying Gas/Electric Bills: YES Difficulty Paying for Meds: No Currently Unemployed: YES Education: High School Diploma/GED Difficulty w/ Childcare or Family Care: No Living arrangements: with family Spiritual care concerns: No Meds Home Medications and Allergies Home Medications Medication Instructions Recorded Confirmed Type buspirone 5 mg tablet 5 mg PO BID 06/11/23 02/27/24 History clonazepam 0.5 mg tablet (Klonopin) 0.5 mg PO QHS 10/02/23 02/27/24 History lamotrigine 200 mg tablet 200 mg PO BID #60 tabs 02/19/24 02/27/24 Rx Allergies Allergy/AdvReac Type Severity Reaction Status Date / Time No Known Allergies Allergy Verified 02/27/24 13:20 Vital Signs Vital Signs - 24 hr 02/27/24 13:21 Temperature 97.3 F L Pulse Rate 70 Respiratory Rate 20 Blood Pressure 122/73 Pulse Oximetry 100 Oxygen Delivery Room Air Exam Const: General: comfortable and no acute distress HENMT: Face/Nose/Sinus: Normal nares present Eyes: General: appearance normal, both eyes and all related structures Neck: Neck: no JVD Resp: Auscultation: clear to auscultation bilaterally Cardio: Rate: regular rate Rhythm: regular rhythm GI: Inspection: non-distended GI Palp: Yes Soft to palpation Skin: General skin exam: normal color Neuro: General: gait normal Speech: normal speech Extrem: General: normal to inspection Psych: Mental Status: mental status grossly normal Assessment and Plan Assessment and plan (1) Diarrhea: Code(s): R19.7 - Diarrhea, unspecified Status: Acute Assessment and Plan: colonoscopy with random colon bx (2) S/P gastric sleeve procedure: Code(s): Z90.3 - Acquired absence of stomach [part of] Status: Acute
[2024-02-27 14:43] VITALS: BP 95/67; PULSE 98; RESP 16; O2SAT 100
[2024-02-27 14:53] VITALS: BP 100/66; PULSE 77; RESP 21; O2SAT 100
[2024-02-27 15:03] VITALS: BP 104/67; PULSE 79; RESP 20; O2SAT 100
== END 2024-02-27 15:14 | disposition home or self-care (01) ==
PROVIDERS: PCP Nurse Practitioner Family; Referring Provider Nurse Practitioner Family; Visit Provider Internal Medicine Gastroenterology
PROC: 0DJD8ZZ Inspection of Lower Intestinal Tract, Via Natural or Artificial Opening Endoscopic (ICD-10-PCS; CPT 45378; principal; 2024-02-27 14:30)
DX: R19.7 Diarrhea, unspecified (principal); F41.9 Anxiety disorder, unspecified; F32.A Depression, unspecified; F12.90 Cannabis use, unspecified, uncomplicated; Z98.890 Other specified postprocedural states; Z90.49 Acquired absence of other specified parts of digestive tract; Z98.84 Bariatric surgery status; Z90.3 Acquired absence of stomach [part of]; Z87.891 Personal history of nicotine dependence; Z80.49 Family history of malignant neoplasm of other genital organs; Z82.49 Family history of ischemic heart disease and other diseases of the circulatory system
CPT/HCPCS: 45380; 88305; J7120

== ENCOUNTER 2024-05-11 10:44 | Outpatient (CLI) | payer OTHER, SELFPAY ==
--- NOTE | ~2024-05-11 | XR_ITS ---
Thoracic spine: Clinical Indication: Back pain AP and lateral views were performed. No fracture is seen. There is normal alignment of the vertebrae. The intervertebral disc spaces appe ar normal. Paravertebral soft tissues appear normal. Impression: No significant abnormalities noted. Reviewed, dictated and finalized at [facility]. Impression: No significant abnormalities noted.
[2024-05-11 11:10] LABS: Basophils Absolute Auto 0.04 K/mm3 (0.00-0.10); Basophils Percent Auto 0.9 % (0.0-1.0); Eosinophils Absolute Auto 0.09 K/mm3 (0.02-0.50); Hematocrit 38.4 % (35.0-49.0); Hemoglobin 13.1 g/dL (12.0-15.0); Immature Granulocyte Absolute 0.02 K/mm3 (0.00-0.00); Immature Granulocyte Percent A 0.4 % (0.0-0.0); Lymphocytes Absolute Auto 2.25 K/mm3 (1.10-4.50); Lymphocytes Percent Auto 50.2 % (18.0-42.0); Mean Corpuscular HGB Conc 34.1 g/dL (32-36); Mean Corpuscular Hemoglobin 30.6 pg (27.0-31.0); Mean Corpuscular Volume 89.7 fL (78.0-102.0); Mean Platelet Volume 10.2 fl (9.2-11.8); Monocytes Absolute Auto 0.21 K/mm3 (0.10-0.90); Monocytes Percent Auto 4.7 % (2.0-11.0); Neutrophils Absolute Auto 1.87 K/mm3 (1.70-7.20); Neutrophils Percent Auto 41.8 % (50.0-70.0); Platelet Count Result 257 K/mm3 (150-420); Red Blood Count 4.28 M/mm3 (4.20-5.40); Red Cell Distribution Width 11.9 % (11.6-14.4); White Blood Count 4.5 K/mm3 (4.8-10.8)
[2024-05-11 11:29] LABS: Iron 84 ug/dL (50-170); Percent Iron Saturation 30 % (12-57)
== END 2024-05-11 10:45 | disposition home or self-care (01) ==
LOC: CHSLAB 10:45
PROVIDERS: PCP Nurse Practitioner Family; Visit Provider Nurse Practitioner Family
DX: R00.2 Palpitations (principal); M54.6 Pain in thoracic spine
CPT/HCPCS: 36415; 72072; 83540; 83550; 85025

== ENCOUNTER 2024-06-10 10:37 | Outpatient (CLI) | payer OTHER, SELFPAY ==
[2024-06-10 10:47] LABS: Hematocrit 39.3 % (35.0-49.0); Hemoglobin 13.3 g/dL (12.0-15.0); Mean Corpuscular HGB Conc 33.8 g/dL (32-36); Mean Corpuscular Hemoglobin 30.4 pg (27.0-31.0); Mean Corpuscular Volume 89.9 fL (78.0-102.0); Mean Platelet Volume 10.2 fl (9.2-11.8); Platelet Count Result 264 K/mm3 (150-420); Red Blood Count 4.37 M/mm3 (4.20-5.40); Red Cell Distribution Width 11.7 % (11.6-14.4); White Blood Count 5.8 K/mm3 (4.8-10.8)
[2024-06-11 15:59] LABS: ANA Cascade Screen POSITIVE (NEGATIVE); Centromere Antibody Charge YES; Centromere B Antibody 7.1 POS AI (<1.0 NEG); Chromatin (Nucleosomal) Ab <1.0 NEG AI (<1.0 NEG); Chromatin Antibody Charge YES; DNA (ds) Antibody Charge YES; JO1 Antibody Charge YES; Jo-1 Antibody <1.0 NEG AI (<1.0 NEG); RNP Antibody <1.0 NEG AI (<1.0 NEG); RNP Antibody Charge YES; Ribosomal Antibody <1.0 NEG AI (<1.0 NEG); Ribosomal Antibody Charge YES; SCL70 Antibody Charge YES; SSA Antibody Charge YES; SSB Antibody Charge YES; Sjogren's Antibody (SS-B) <1.0 NEG AI (<1.0 NEG); Sm Antibody <1.0 NEG AI (<1.0 NEG); Sm Antibody Charge YES; Sm/RNP Antibody <1.0 NEG AI (<1.0 NEG); Sm/RNP Antibody Charge YES
== END 2024-06-10 10:38 | disposition home or self-care (01) ==
LOC: CHSLAB 10:38
PROVIDERS: PCP Nurse Practitioner Family; Visit Provider Nurse Practitioner Family
DX: R53.83 Other fatigue (principal); R79.89 Other specified abnormal findings of blood chemistry; R00.2 Palpitations
CPT/HCPCS: 36415; 83516; 85027; 86038; 86225; 86235

== ENCOUNTER 2025-01-21 13:10 | Emergency (ER) | payer MEDICAID, SELFPAY ==
--- NOTE | ~2025-01-21 | XR_ITS ---
EXAMINATION: XR chest 2V 01/21/2025 14:08 INDICATION: Chest pain PROCEDURE: 2 view chest COMPARISON: Comparison to multiple prior studies sequentially, with oldest reviewed study dated 03/30. FINDINGS: The lungs are clear. The cardiomediastinal silhouette is within normal limits. There are no pleural effusions. There is no pneumothorax suspected. IMPRESSION: 1: NO ACUTE CARDIOPULMONARY DISEASE. Reviewed, dictated and finalized at location A.
--- NOTE | ~2025-01-21 | CT_ITS ---
CTA chest PE protocol Ordering provider: Diomedes Collazo MD History: 34 years Female with . Elevated D-dimer, tachycardia . Comparison: None. Technique: CT angiogram chest was performed following timed intravenous injection of contrast. Thin s lice axial images and reformatted coronal images were obtained. Three dimensional reformatted images of the chest were also obtained using a [employer] workstation. . Automated exposure control and iterati ve reconstruction technique were employed. The dose-length product was 161.41 mGy-cm. 100 mL Omnipaqu e 350 was given IV. Findings: PULMONARY ARTERIES: No pulmonary embolus. VISUALIZED THORACIC INLET: Normal. MEDIASTINUM: Aorta/coronary arteries: The thoracic aorta is normal. Ascending aorta measures 3 cm. Heart/other: The heart is not enlarged. Lymph nodes: No mediastinal or hilar adenopathy. LUNGS: No pulmonary nodules or masses. No infiltrates or effusions. No pneumothorax. VISUALIZED UPPER ABDOMEN: Postoperative changes in the stomach. Status post cholecystectomy. Otherwis e, the visualized upper abdomen is normal. MUSCULOSKELETAL: Soft tissues: The superficial soft tissues are normal. Bones: Normal spine. IMPRESSION: 1. No pulmonary embolism. 2. No acute cardiopulmonary pathology. Reviewed, dictated and finalized at location A.
[2025-01-21 13:12] VITALS: BP 127/99; PULSE 120; RESP 20; TEMP 36.4; O2SAT 100
--- NOTE | 2025-01-21 13:12 | ECG_ITS ---
Test Date: 2025-01-21 13:18:45 Measurements Intervals [place] Rate: 111 P: 81 MI: 147 QRS: 77 QRSD: 75 T: 62 QT: 291 QTc: 396 Interpretive Statements SINUS TACHYCARDIA LEFT ATRIAL ENLARGEMENT BORDERLINE ST-T WAVE ABNORMALITY- DIFFUSE LEADS BASELINE ARTIFACT- I, III, AVR, AVL, AVF ABNORMAL ECG No previous ECG available for comparison Electronically Signed On 01-21-2025 13:21:23 CDT by Tate Matta D.O.
[2025-01-21 13:32] LABS: Basophils Absolute Auto 0.1 K/mm3 (0.0-0.1); Basophils Percent Auto 0.7 % (0.2-1.2); Eosinophils Absolute Auto 0.1 K/mm3 (0-0.3); Eosinophils Percent Auto 0.7 % (0-4.4); Hematocrit 43.6 % (37.0-47.0); Hemoglobin 14.9 g/dL (12.0-15.0); Immature Granulocyte Absolute 0.01 K/mm3 (0.00-0.031); Immature Granulocyte Percent A 0.1 % (0-0.5); Lymphocytes Absolute Auto 3.47 K/mm3 (0.9-3.2); Lymphocytes Percent Auto 40.7 % (18.3-44.2); Mean Corpuscular HGB Conc 34.2 g/dl (32-36); Mean Corpuscular Hemoglobin 30.2 pg (26-34); Mean Corpuscular Volume 88.3 fl (80-100); Mean Platelet Volume 9.8 fl (7.4-10.4); Monocytes Absolute Auto 0.5 K/mm3 (0.1-0.6); Monocytes Percent Auto 5.4 % (2.6-8.5); Neutrophils Absolute Auto 4.5 K/mm3 (1.3-6.7); Neutrophils Percent Auto 52.4 % (45.5-73.1); Platelet Count Result 350 k/mm3 (150-375); Red Blood Count 4.94 M/mm3 (4.2-5.4); Red Cell Distribution Width 11.9 % (11.5-14.5); White Blood Count 8.5 K/mm3 (4.5-10.0)
--- OUTSIDE RECORDS SUMMARY | 2025-01-21 13:42 | XMS_ITS | Clinical Summary ---
Author Organization [employer] [facility] Address [address] [place] [address] Care Team Providers Care Pipe Stem Aligner Name Role Phone Dennys Mohanandrey Gaines LINSEED OIL TEMPERER Primary Care Provider Allergies No known active allergies Medications busPIRone 5 mg tablet Take 5 mg by mouth 2 times daily. Active lamoTRIgine (LaMICtal) 200 mg tablet Take 200 mg by mouth daily. Active clonazePAM (KlonoPIN) 0.5 mg Tablet Take 0.5 mg by mouth 2 times daily as needed for Anxiety. 01/22/2023 Active acetaminophen (TYLENOL) 325 mg tablet Take 2 Tablets (650 mg) by mouth every 6 hours as needed for Other (See Comment) (See admin instructions ). 03/07/2023 Active prochlorperazin e maleate (COMPAZINE) 5 mg tablet Take 1 Tablet (5 mg) by mouth every 6 hours as needed for Nausea/Emesi s. 20 Tablet 03/07/2023 Active polyethylene glycol (MIRALAX) 17 gram Powder in Packet Take 1 Packet (17 Grams) by mouth 2 times daily as needed for Constipation . 03/07/2023 Active Active Problems Problem Noted Date Diagnosed Date Protein-calorie malnutrition, moderate Abdominal pain 03/05/2023 Acute colitis 03/05/2023 Anxiety and depression 03/05/2023 Epilepsy 03/05/2023 Family History Medical History Relation Name Comments Colon Cancer Neg Hx Esophageal Cancer Neg Hx Gastric Cancer Neg Hx Liver Cancer Neg Hx Pancreatic Cancer Neg Hx Social History Tobacco Use Types Packs/Day Years Used Date Smoking Tobacco: Former Cigarettes Q uit: 2012 Smokeless Tobacco: Never Alcohol Use Standard Drinks/Week Comments Never 0 (1 standard drink = 0.6 oz pur e alcohol) Financial Resource Strain Answer Date R ecorded How hard is it for you to pa y for the very basics like food, housing, medical care, and heating? Hard 03/05/2023 Food Insecurity Answer Date Recorded In the past 12 months, have you worried that your food would run out before you had money to buy more? Patient declined 2022 In the past 12 months, did y ou run out of food and didn't have money to buy more? Patient declined 03/05/2023 Transportation Needs Answer Date Record ed In the past 12 months, has l ack of transportation kept you from medical appointments or from getting medications? Patient declined 03/05/2023 In the past 12 months, has l ack of transportation kept you from meetings, work, or from getting things needed for daily living? Patient declined 03/05/2023 Housing Stability Answer Date Recorded In the last 12 months, was t here a time when you were not able to pay the mortgage or rent on time? Patient refused 03/05/20 23 Number of Times Moved in the Last Year Not on fi le 03/05/2023 (RETIRED) In the last 12 mon ths, was there a time when you did not have a steady place to sleep or slept in a intermediate (including now)? Patient refused 03/05/2023 Feeling Safe Answer Date Recorded Are you in a relationship wi th someone who hurts you emotionally and/or physically? 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 Gender Identity Not on file Sexual Orientation Not on file Last Filed Vital Signs Vital Sign Reading Time Taken Comments Blood Pressure 106/75 03/07/2023 4:00 PM CDT Pulse 67 03/07/2023 4:00 PM CDT Temperature 37.1 C (98.8 F) 03/07/2023 4:00 PM CDT Respiratory Rate 18 03/07/2023 4:00 PM CDT Oxygen Saturation 100% 03/07/2023 4:00 PM CDT Inhaled Oxygen Concentration - - Weight 45.9 kg (101 lb 3.1 oz) 03/07/2023 7:59 A M CDT Height 160 cm (5' 3) 03/04/2023 4:10 PM CDT Body Mass Index 17.93 03/04/2023 4:10 PM CDT Plan of Treatment Health Maintenance Due Date Last Done Comments DTAP/TDAP/TD VACCINES (1 - Tdap) 2007 HEPATITIS B VACCINES (1 of 3 - 19+ 3-dose series) 2007 INFLUENZA VACCINE (#1) 2024 HPV VACCINES Aged Out No longer eligi ble based on patient's age to complete this topic Insurance [place] [employer] Advance Directives For more information, please contact: [phone] * Full Code (Latest Code Status on File) Date Activated Date Inactivated Comments 03/05/2023 7:32 AM 03/07/2023 9:35 PM Care Teams Pipe Stem Aligner Relationship Specialty Start Date End Date Bernice Mohan FNP [address] [place] [address] PCP - General Nurse Practitioner Family 09/04/21
--- OUTSIDE RECORDS SUMMARY | 2025-01-21 13:42 | XMS_ITS | Data Portability ---
Author Organization [facility] Address [address] [place] [address] Care Team Providers Care Molding Line Operator Name Role Phone ZOYA JAMI Primary Care Provider RAMON MCGUIRE Urologist Assessment No assessment recorded. Plan of Treatment Reminders Order Date Submit Date Provider Last Modified By Organization Details Last Modified Time Details Appointments None record ed. Lab None record ed. Referral None record ed. Procedures None record ed. Surgeries None record ed. Imaging None record ed. Medication Orders None record ed. Patient TargetsNo targets recorded. Patient Instructions Encounter Date Encounter Id Patient Instructions Last Modified By Organization Details Last Modified Time 11/27/[id number] Impression is th at the patient has left ureterolithiasis and most likely has passed her stone. We discussed with the patient regarding prevention of stones in the future. She was given a low oxalate diet. We'll have her return in 6 months for a KUB. Of note the patient stated that she has a cystocele and rectocele and she was referred for urogynecology evaluation. [email or web address] Not available 11/27/2022 16:48:31 Reason for Referral None Reported. Problems Name Problem SNOMED Code Status Onset Date Resolution Date Notes Provider Name and Address Organization Details Recorded Time Ureteric stone 30406240 Active 023 [place] [address] [place] [address], [address] , [facility] 3 16:47:36 Problem Notes None recorded. Procedures Surgical History Date Name Laterality Status Provider Name and Address Organization Details Recorded Time 2021 esophagogastroduodenoscopy completed Chris Ramirez [facility] 3 17:02:05 cholecystectomy completed Ny Ramirez [facility] 3 16:56:51 laparoscopic sleeve gastrectomy completed Ny Ramirez [facility] 3 16:57:20 hysterectomy completed Ny Ramirez [facility] 3 16:57:33 Imaging Results None recorded. Procedure Notes None recorded. Medical Equipment None Reported. Allergies No known drug allergies Medications Name Sig Start Date Stop Date Status Note LastModified by Organization Details LastModified Time sucralfate 1 gram tablet Take 1 tablet every day by oral route. active Not Available Not Available No t Available clonazepam 0.5 mg tablet Take 1 tablet twice a day by oral route as needed. active Not Available Not Available No t Available dicyclomine 20 mg tablet Take 1 tablet 4 times a day by oral route. active Not Available Not Available No t Available pantoprazole 40 mg tablet,delayed release Take 1 tablet every day by oral route. active Not Available Not Available No t Available Vitamin D2 1,250 mcg (50,000 unit) capsule Take 1 capsule every week by oral route. active Not Available Not Available No t Available lamotrigine 100 mg tablet Take 2 tablets twice a day by oral route. active Not Available Not Available No t Available Vitals Date Recorded Body height Body mass index (BMI) Body weight Body temperature Provider Name and Address Organization Details Last Updated DateTime 11/27/2022 160.02 cm 18.2 kg/m2 47820.01 g 98.8 [degF] Ny Ramirez [facility] 11/27/2022 16:54:42 Social History Question Answer Notes LastModified by Organizat ion Details LastModified Time Tobacco Smoking Status Former Smoker Ny Ramirez ree [facility] 11/27/2022 16:56:34 What Is Your Level Of Caffeine Consumption? Occasional [email or web address] Information not available 11/27/2022 What Type Of Diet Are You Following? SPECIFIC [email or web address] Information not available 11/27/2022 When Did You Quit Smoking? 11-15yearssince lastcigarette 2009 [email or web address] Information not available 11/27/2022 What Was The Date Of Your Most Recent Tobacco Screening? 11/27/2022 [email or web address] Information not available 11/27/2022 Sex: Unknown Functional Status Question Answer Note LastModified by Organization D etails LastModified Time Do you or have you ever used any other forms of tobacco or nicotine? No [email or web address] Information not available 11/27/2022 What is your level of alcohol consumption? None [email or web address] Information not available 11/27/2022 Mental Status None recorded. Family History Relationship Description Onset Age of this Age Resolved Age Notes LastModified by Organization Details LastModified Time Maternal Grandmother Diabetes mellitus [email or web address] Not available 2022 16:44:07 Maternal Grandmother Hypertensive disorder [email or web address] Not available 2022 16:55:45 Mother Diabetes mellitus [email or web address] Not available 2022 16:44:19 Mother Hypertensive disorder [email or web address] Not available 2022 16:55:45 Maternal Aunt Diabetes mellitus [email or web address] Not available 2022 16:44:28 Maternal Grandfather Diabetes mellitus [email or web address] Not available 2022 16:55:23 Medical History Condition Response GERD/NAUSEA Y HEADACHES/MIGRAINES Y SEIZURES/EPILEPSY Y HYPERTENSION Y Gynecological HistoryNo gynecological history recorded. Obstetrics History GPAL:G 0 P 0 0 0 0 Past Encounters Encounter ID Performer Location Encounter Start Date Encounter Closed Date Diagnosis/Indication Diagnosis SNOMED-CT Code Diagnosis ICD10 Code Diagnosis Note [id number] Ramon Mcguire MD [facility] [address] [place] [address] 11/27/2022 15:44:33 11/27/2022 16:57:20 Ureteric stone 79429661 N20.1 Health Concerns Section Related Observation LastModified by Organization Detai ls LastModified Time None Recorded Concern Status LastModified by Organization Details LastModified Time None Recorded Advance Directives Directive None Recorded Payers Insurance Date Sequence Insurance Name Policy Number Policy Nicholas Covered Member ID Nicholas Member ID Guarantor Name 05/26/2023 1 [facility] (MEDICAID HMO) [id number] Adrienne Negro [id number] Adrienne Negro Notes Date Note Type Note Provider Name and Address Organization Details Recorded Time 11/27/2022 text/html This is a 32-year-old female who has had a previous gastric sleeve procedure and she had the sudden onset one week ago of left lower quadrant pain. She went to the emergency room where a CAT scan identified a 3 mm distal left ureteral stone. She has not passed the stone to her knowledge but she also has not had any recurrence of the left lower quadrant pain. She has not had any previous history of nephrolithiasis. She does not have any voiding problems. Ramon Mcguire MD [address] [place], [address], [facility] 11/27/2022 17:43:50 OBGyn Episode No OBEpisode recorded.
--- OUTSIDE RECORDS SUMMARY | 2025-01-21 13:42 | XMS_ITS | Patient Health Record ---
Author Organization [facility] Address [address] [place] [address] Care Team Providers Care Manager Government Name Role Phone [facility] Unavailable [phone] Reason For Referral No Information Plan Of Treatment No Information
--- OUTSIDE RECORDS SUMMARY | 2025-01-21 13:42 | XMS_ITS | Encounter Summary ---
Author Organization [facility] Address [address] [place] [address] Care Team Providers Care Sales Receptionist Name Role Phone Dennys Mohanandrey Gaines FORESTRY PROFESSOR Primary Care Provider Reason for Visit * Reason Onset Date Comments Ulcerative Colitis 03/06/2023 LEFT SECURE E [facility] CHAT/ [facility] Encounter Details Date Type Department Care Team (Late st Contact Info) Description 03/06/2023 Telephone [facility] Admitting [address] [place] [address] [place] [address] [facility] [address] [place] [address] Ulcerative Colitis (LEFT SECURE EPIC CHAT/ [facility]) Social History Tobacco Use Types Packs/Day Years [...] place to sleep or slept in a usp (including now)? 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 No / Unsure 03/05/2023 2:36 AM CDT documented as of this encounter Plan of Treatment Not on file documented as of this encounter Visit Diagnoses Not on filedocumented in this encounter Additional Health Concerns Infection Onset Date Last Indicated Resolved Time R/O GI Pathogen 03/05/2023 03/05/2023 03/07/2023 6 :13 AM CDT documented as of this encounter Care Teams Sales Receptionist Relationship Specialty Start Date End Date Bernice Mohan FNP [address] [place] [address] PCP - General Nurse Practitioner Family 09/04/21 documented as of this encounter
--- OUTSIDE RECORDS SUMMARY | 2025-01-21 13:42 | XMS_ITS | Clinical Summary ---
Author Organization [facility] [employer] Address [address] [facility] [place] [address] Care Team Providers Care Parlor Maid Name Role Phone Bernice Mohan COAL GASIFICATION TECHNICIAN-RAMP AND CARGO SUPERVISOR Primary Care Provider Source Comments [facility], [facility],non-owned Affiliates and Associated Physician Practices is amultiple site organization consisting of ambulatory clinics and hospital sitesin [place], [place], [place] and [place]. This disclosure is being madepursuant to the Care Everywhere program and may not contain all information available regarding this patient. Last updated 18.[facility] [employer] Allergies No known active allergies Medications * Be aware that medications may not be up to date on this document. Alwaysverify current medications with the patient. clonazePAM (KLONOPIN) 0.5 MG tablet Take 1 (one) tablet by mouth as needed Active Multiple Vitamins-Minera ls (ONE-A-DAY WOMENS PO) Active lamoTRIgine (LaMICtal) 200 MG tablet Take 1 (one) tablet by mouth 2 times daily 3 Active busPIRone (Buspar) 5 MG tablet Take 1 (one) tablet by mouth 2 times daily 4 Active Lyllana 0.025 MG/24HR patch APPLY 1 PATCH TOPICALLY TO THE SKIN 2 TIMES A WEEK 4 Active estradiol (ESTRACE VAGINAL) 0.1 MG/GM vaginal creamIndication s:Vulvovaginal Atrophy Apply 1 gram vaginally at bedtime for 21 days, then transition to twice weekly use. Reasons: Vulvovaginal Atrophy 42.5 g 2 4 Active Active Problems Problem Noted Date Diagnosed Date Breast mass 06/21/2021 Discharge from right nipple 06/21/2021 Iron deficiency 04/23/2018 Vitamin D deficiency 04/23/2018 Chest pain 04/22/2018 Dyspnea on exertion 04/22/2018 Palpitations 04/22/2018 Panic disorder 04/22/2018 Personal history of nicotine dependence 04/22/20 18 Sleep apnea, unspecified 04/22/2018 Encounter for routine screen ing for malformation using ultrasonics 11/19/2014 Maternal seizure disorder 03/31/2013 Anxiety 04/16/2011 Resolved Problems Problem Noted Date Diagnosed Date Resolved Date Medication exposure during f irst trimester of 03/31/2013 08/02/2021 High-risk 03/31/2013 08/02/20 21 Overview (05/19/2015): Family History Medical History Relation Name Comments Diabetes Maternal Aunt Diabetes - Type 2 Maternal Aunt Diabetes Maternal Grandfather Heart Failure Maternal Grandfather Diabetes Maternal Grandmother Hypertension Maternal Grandmother Diabetes - Type 2 Mother Hypertension Mother Relation Name Status Comments Maternal Aunt Maternal Grandfather Maternal Grandmother Mother Social History Tobacco Use Types Packs/Day Years Used Date Smoking Tobacco: Former Cigarettes 0.3 3 0 08/19/2006 - 08/19/2009 Smokeless Tobacco: Never Tobacco Cessation:Counseling Given: Not Answered Alcohol Use Standard Drinks/Week Comments Not Currently 0 (1 standard drink = 0.6 oz pur e alcohol) once a year AUDIT-C Answer Date Recorded Q1: How often do you have a drink containing alcohol? Never 11/28/2022 Q2: How many drinks containi ng alcohol do you have on a typical day when you are drinking? Patient does not drink Q3: How often do you have si x or more drinks on one occasion? Never 11/28/2022 PHQ-2 Answer Date Recorded Patient Health Questionnaire-2 Score 0 11/17/2023 Comments No Sex and Gender Information Value Date Recorded Sex Assigned at Not on file Legal Sex Female 5:34 AM PRODUCE SERVICE TEAM MEMBER Gender Identity Not on file Sexual Orientation Not on file Last Filed Vital Signs Vital Sign Reading Time Taken Comments Blood Pressure 120/88 11/18/2023 11:09 AM CDT Pulse 78 10/10/2023 10:34 AM PRODUCE SERVICE TEAM MEMBER Temperature 36.4 C (97.6 F) 10/10/2023 10:00 AM PRODUCE SERVICE TEAM MEMBER Respiratory Rate 16 10/10/2023 10:34 AM PRODUCE SERVICE TEAM MEMBER Oxygen Saturation 99% 10/10/2023 10:34 AM PRODUCE SERVICE TEAM MEMBER Inhaled Oxygen Concentration - - Weight 50.8 kg (112 lb) 11/18/2023 11:09 AM CDT Height 160 cm (5' 3) 11/18/2023 11:09 AM CDT Body Mass Index 19.84 11/18/2023 11:09 AM CDT Plan of Treatment Health Maintenance Due Date Last Done Comments HIV SCREENING 2003 HEPATITIS C SCREENING 09/14/2006 DTAP/TDAP/TD VACCINES (1 - Tdap) 2007 HEPATITIS B VACCINE (1 of 3 - 19+ 3-dose series) 2007 COVID-19 VACCINE (1 - 2023-2 5 season) 2024 DEPRESSION SCREENING 08/19/2024 11/18/2023 INFLUENZA VACCINE (Season Ended) 2025 ZOSTER VACCINE (1 of 2) 2038 HIB VACCINE Aged Out No longer eligi ble based on patient's age to complete this topic HPV VACCINE Aged Out No longer eligi ble based on patient's age to complete this topic MENINGOCOCCAL (Group B) VACC INE SHARED DECISION-MAKING Aged Out No longer eligibl e based on patient's age to complete this topic MENINGOCOCCAL GROUPS A/C/Y/W VACCINE Aged Out No longer eligible b ased on patient's age to complete this topic PNEUMOCOCCAL VACCINE Aged Out No long er eligible based on patient's age to complete this topic Insurance [facility] [employer] [facility] * Guarantor: ADRIENNE TOM Account Type Relation to Patient Date of Phone Billing Address Personal/Family [address] [place] [address] [facility] SELF PAY NO INSURANCE Member Subscriber Plan / Payer (Ef fective for All Dates) Name:Adrienne Tom Member ID:Not on file Relation to Subscriber:Not on file Name:ADRIENNE TOM Subscriber ID:Not on file Address: [address] [place] [id number] Payer ID:Not on file Group ID:Not on file Type:Self Pay Address: [place], [place] * Guarantor: ADRIENNE TOM Account Type Relation to Patient Date of Phone Billing Address Personal/Family [address] [place] [address] [facility] SELF PAY NO INSURANCE Member Subscriber Plan / Payer (Ef fective for All Dates) Name:Adrienne Tom Member ID:Not on file Relation to Subscriber:Not on file Name:ADRIENNE TOM Subscriber ID:Not on file Address: [address] [place] [address] Payer ID:Not on file Group ID:Not on file Type:Self Pay Address: [place], [place] * Guarantor: ADRIENNE TOM Account Type Relation to Patient Date of Phone Billing Address Personal/Family [address] [place] [address] [facility] SELF PAY NO INSURANCE Member Subscriber Plan / Payer (Ef fective for All Dates) Name:Adrienne Tom Member ID:Not on file Relation to Subscriber:Not on file Name:ADRIENNE TOM Subscriber ID:Not on file Address: [place] [address] Payer ID:Not on file Group ID:Not on file Type:Self Pay Address: [place], [place] Care Teams Parlor Maid Relationship Specialty Start Date End Date Bernice Mohan APRN-RUBEN [address] [place] [address] PCP - General Nurse Practitioner Family 06/29/21
--- OUTSIDE RECORDS SUMMARY | 2025-01-21 13:42 | XMS_ITS | Continuity of Care Document ---
Author Organization [facility] Address [address] [place] [address] Phone Care Team Providers Care Engineering Director Name Role Phone Rubio Bernardo MD Unavailable Unavailable Allergies, Adverse Reactions, Alerts Substance Reaction Status Criticality No Known Allergies Active No Inform ation Medications Medication Instructions Dosage Effective Dates (start - stop) Status Comments Ventolin HFA 90 mcg/actuation aerosol inhaler inhale 2 puff by inhalation route every 4 - 6 hours as needed as needed - Active PRN for sob Lamictal 200 mg tablet take 1 tablet by oral route 2 times every day 200 MG - Active Klonopin 0.5 mg tablet take 1 tablet by oral route 2 times every day 0.5 MG - Active Celexa 10 mg tablet take 1 tablet by ora l route every day 10 MG - Active Procedures Procedure Date PREV VISIT, NEW, AGE 18-39 Advance Directives Directive Yes / No Effective Date File Name No Information Encounters Encounter Description Practice Location Reason(s) For Visit Diagnoses Date Provider Providers Copied on Encounter [facility], [address], [place], [place], [id number], [place] tel:[phone] [facility] No Information Az Bergeron. [address], [facility] [place], [id number], [place]. tel:[phone] Referring Provider: Rubio Bernardo, [address], [place], [place], [id number]. tel:[phone] PREV VISIT, NEW, AGE 18-37 [facility], [address], [place], [place], [id number], [place] tel:[phone] [facility] Medicine PHysical (chief complaint) Encntr for general adult medical exam w/o abnormal findings Az Bergeron. [address], [place], [place], [id number], [place]. tel:[phone] Referring Provider: Rubio Bernardo [address], [place], [place], [id number]. tel:[phone] Family History Family Member Type Diagnosis Age At Onset Mother Problem (finding) Depression Father Problem (finding) unknown Brother Problem (finding) Alive and well Payers Payer name Insurance type Covered republican ID Authoriza tion(s) No Information Social History Type Description Quantity Date Captured Comments Alcohol Use Details Unknown Caffeine Use Details Unknown Tobacco Use Status No Information Smoking Status No Information Sex Female Chief Complaint And Reason For Visit No Information Plan Of Treatment Date Type Action Status Goal Special diet education compl eted Referral Ordered: Tate Matta [facility] : Internal Medicine : Cardiovascular Disease (related to Encntr for general adult medical exam w/o abnormal findings) ordered Referral Referred To: Tate Matta [address] [place], [place] [id number] Ordered: Referrals: [facility] : Internal Medicine : Cardiovascular Disease. Tate Matta. Evaluate and treat ordered History Of Present Illness Encounter Date Complaint History Of Prese nt Illness PHysical Pt needs annual physical. Pt has chronic anxiety and depression. Pt has above symptoms for long time. Pt has frequent panic attacks. Pt sees neurology and she was just started on celexa and klonopin since yesterday. Pt has not noticed much difference yet. Pt states that Klonopin does calm her down Pt has been having midsternal chest pain with radiating to shoulder blade for the past two weeks. Pt has above daily. Pt feels that she has difficulty catching enough air and she has to take deep breath in order to get enough air. Pt went to [place] 10 days ago but her above symptoms started before her road trip. Pt denies any calf pain. Pt denies any acute sob or chest pain. Pt told me she stopped at ER in [place] 8 days ago and had normal chest x ray and EKG. She was told to go to see psychiatrist and it is not due to her heart. Pt denies any other complaints. Pt denies any exertional chest pain. Pt states that she thinks the chest pain and anxiety is causing her to feel more anxious. Pt denies any GERD or abd pain or nausea, vomiting Instructions Date Instruction Additional Andraer mark Special diet education Related t o Body mass index (BMI) 31.0-31.9, adult Assessments Type Assessment Date No Information
[2025-01-21 13:43] LABS: Alanine Aminotransferase 23 U/L (6-35); Albumin Level 5.4 g/dL (3.5-5.1); Alkaline Phosphatase 96 U/L (38-126); Anion Gap 16 mmol/L (4-12); Aspartate Amino Transferase 31 U/L (14-36); Bilirubin,Total 1.3 mg/dL (0.2-1.3); Blood Urea Nitrogen 18 mg/dL (7-17); Carbon Dioxide 19 mmol/L (22-30); Chloride 103 mmol/L (98-107); Estimated CRCL calculation 52 ml/min; Estimated Glomerular Filt Rate > 60; Glucose 126 mg/dL (65-110); Lipase 74 U/L (23-300); Potassium 3.4 mmol/L (3.4-5.0); Sodium 138 mmol/L (137-145); Total Protein 8.6 g/dL (6.3-8.2)
--- OUTSIDE RECORDS SUMMARY | 2025-01-21 13:43 | XMS_ITS ---
Author Organization [facility] Address [address] [place] [address] Care Team Providers Care Telephone Supervisor Name Role Phone [facility] Unavailable [phone] REASON FOR VISIT Prescription Refill Encounters Encounter Location Date Provider Diagnosis [facility] [address] [place] [address] 08/31/2024 [facility] Plan Of Treatment No Information Progress Notes * Aspen BOWLINGOB: 9 (34 yo F)Acc No.[id number]:08/31/2024 IMPORT Patient: Adrienne MENDOZA Provider: Antonino ELLIS :1990 A ge:33 Y S ex:Female Date:08/31/2024 Phone: Address:[address] [facility] Subjective: * Chief Complaints: * 1 . Prescription Refill. * Medical History: Objective: * Vitals: Assessment: Plan: * Treatment: * Billing Information: * Visit Code: * Procedure Codes: * Electronic signature of [facility] on 01/21/2025 at 02:42 PM EDT Sign off status: Pending * Provider: Antonino DELGADO [place] Date: 0 08/31/2024 Generated for Bryant burgos/Fanicole/eTransmitting on: 0 01/21/2025 02:42 PM EDT
--- OUTSIDE RECORDS SUMMARY | 2025-01-21 13:43 | XMS_ITS | Data Portability ---
Author Organization [facility] Address [address] [place] [address] Assessment No assessment recorded. Plan of Treatment Reminders Order Date Submit Date Provider Last Modified By Organization Details Last Modified Time Details Appointments None recorded . Lab prolacti n, serum 2020 021 [facility] (Lab), [address], [place], [address], 1 06:09:04 TSH, serum or plasma 2020 021 [facility] (Lab), [address], [place], [address], 1 06:09:03 17-hydro xyproges terone, QN, serum 2019 020 [email or web address] [facility] ([facility]), [address] , [address] [address], [place], [address], 0 15:14:45 dhea-sul fate, serum 2019 020 [email or web address] [facility] ([facility]), [address] , [address] [address], [place], [address], 0 15:14:45 estradio l, serum 2019 020 [email or web address] [facility] ([facility]), [address], [place], [address], 0 15:14:45 FSH (follicl e-stimul ating hormone) , serum 2019 tryan28 [facility] ([facility]), [address] [facility] [address], [place], [address], 0 15:14:45 HbA1c (hemoglo bin A1c), blood 2019 tryan28 [facility] ([facility]), [address] [facility] [facility] [address], [place], [address], 0 15:14:46 lh (luteini zing hormone) , serum 2019 tryan28 [facility] ([facility]), [address] [facility] [address], [place], [address], 0 15:14:46 progeste ariadne, serum 2019 tryan28 [facility] ([facility]), [address] [facility] [address], [place], [address], 0 15:14:46 prolacti n, serum 2019 tryan28 [facility] ([facility]), [address] [facility] [address], [place], [address], 0 15:14:46 shbg (sex hormone- binding globulin ), serum 2019 tryan28 [facility] ([facility]), [address] [facility] [address], [place], [address], 0 15:14:46 testoste ariadne, total, serum 2019 020 [email or web address] [facility]), [address] [facility] [address] , [address], [place], [address], 0 15:14:46 TSH, serum or plasma 2019 020 [email or web address] [facility] ([facility]), [address] [facility] [address] , [address], [place], [address], 0 15:14:47 Referral urogynec ologist referral [address] Urology [facility], [address] [facility] [address], [address], 4 14:13:15 urogynec ologist referral - Cystocel ePlease contact this patient to schedule an appointm entAttac hed are the patients demograp hics and most recent office visit notes.If you have any question s, please contact me at [phone].Th ank you,Addy delatorre, Referral 's 2021 022 shahla Valadez [employer], [address] [place] [address], [address], 2 15:39:16 Procedures None recorded . Surgeries None recorded . Imaging MAMMO, diagnost ic, digital, bilatera l - right nipple discharg e, left breast with lumps felt in outer quadrant 2022 [facility] [address], [place], [address], 4 05:01:28 US, breast, bilatera l, complete 2022 023 [facility], [address], [address], [place], [address], 4 05:01:33 MAMMO, diagnost ic, digital, bilatera l - Right nipple discharg e and Left breast lump @ 1 o'clock. 2020 021 [facility] [place] , [address], [address], [place], [address], 1 14:24:34 Medication Orders metronid azole 0.75 % (37.5 mg/5 gram) vaginal gel 2022 023 [id number], [address] [facility], [place], [place], [id number], 3 11:42:41 estradio l 0.01% (0.1 mg/gram) vaginal cream 2022 023 [facility] #[id number], [address] [facility], [place], [place], [id number], 3 11:42:42 estradio l 0.025 mg/24 hr weekly transder mal patch 2022 023 [facility][id number], [address] [facility], [place], [place], [id number], 3 11:43:30 Patient TargetsNo targets recorded. Patient InstructionsNo instructions recorded. Reason for Referral Urogynecologist Referral for Cystocele Cystocele CystocelePlease contact this patient to schedule an appointmentAttached are the patients demographics and most recent office visit notes.If you have any questions, please contact me at [phone].Thank you,Karissa Referral's Referring Physician: Pamela Walters, BILLIARD PARLOR MANAGER, Encounter Date: 04/25/2022 Urogynecologist Referral for Cystocele Referring Physician: Pamela Walters [employer]ILLIARD PARLOR MANAGER, Encounter Date: 08/01/2023 Results Created Date Observation Date Name Description Value Unit Range Abnormal Flag Note LastModifiedBy Organization Detail LastModifiedTime 05/22/20 21 05/22/2021 TSH, REFLE X FREE T4 TSH 4.03 uIU/m L 0.30-5 .33 Not Available [facility] (Lab) [address] [facility], [place], [address], 05/23/2021 06:09:03 05/22/20 21 05/22/2021 PROLA CTIN prolactin, total 13.80 NG/mL 4.79-2 3.30 This assay was perfo rmed using [employer] ratio n reage nts and test kits. Value s obtai gopi with other assay metho ds or kits canno t be used inter higuera eably . Not Available [facility] (Lab) [address], [place], [address], 05/23/2021 06:09:04 08/01/20 23 08/01/2023 VAGIN ITIS/ VAGIN OSIS, DNA PROBE janice sp. detection, direct probe Negati ve negati ve Not Available [facility] (Lab) [address], [place], [address], 08/03/2023 07:11:23 08/01/20 23 08/01/2023 VAGIN ITIS/ VAGIN OSIS, DNA PROBE gardnerella vag. detection, direct probe Negati ve negati ve Not Available [facility] (Lab) [address] [place], [address], 08/03/2023 07:11:23 08/01/20 23 08/01/2023 VAGIN ITIS/ VAGIN OSIS, DNA PROBE trichomonas vag. detection, direct probe Negati ve negati ve Not Available [facility] (Lab) [address] [place], [address], 08/03/2023 07:11:23 08/01/20 23 08/01/2023 CT/GC AND TRICH OMONA S VAGIN JACINTO (RRNA ), SWAB chlamydia trachomatis, PCR Negati ve negati ve Not Available [facility] (Lab) [address] [facility], [place], [address], 08/03/2023 07:11:23 08/01/20 23 08/01/2023 CT/GC AND TRICH OMONA S VAGIN JACINTO (RRNA ), SWAB neisseria gonorrhoeae, PCR Negati ve negati ve Not Available [facility] (Lab) [address] [facility], [place], [address], 08/03/2023 07:11:23 08/01/20 23 08/01/2023 CT/GC AND TRICH OMONA S VAGIN JACINTO (RRNA ), SWAB trichomonas vaginalis ribosomal RNA (rrna) Negati ve negati ve Not Available [facility] (Lab) [address] [facility], [place], [address], 08/03/2023 07:11:23 08/01/20 23 08/01/2023 CULTU RE: URINE result report SEE RESULT S BELOW Test: Cultu re: Urine Speci men Sourc e: Urine Voide d Speci men Type: Urine Speci men Date: 08/01 11:18 AM Resul t Date: 08/03 6:06 AM Resul t Statu s: Final resul t Abnor mal: No Resul ting Lab: [facility] [address] [facility] [address] Tel: CULTU RE ----- ----- ----- --- No growt h in 1 day (dete ction level of 10,00 0 colon ies / ml.) Not Available [facility] (Lab) [address], [place], [address], 08/03/2023 07:11:24 06/06/20 21 06/06/2021 MAMMO , diagn ostic , digit al, bilat eral No observ ation record ed. [facility] [address], [place], [address], 06/06/2021 16:12:33 06/08/20 21 XR, hand No observ ation record ed. [email or web address] Not Available 2020 18:35:41 Result Notes Documentation Provider Name and Address Organization Details Recorded Time Xr, Hand : from 06/06/21: ganglion cyst found-refer Orthopedic surgeon? Jeanne Sibley [facility], [facility] 06/28/2021 18:35:41 Problems Name Problem SNOMED Code Status Onset Date Resolution Date Notes Provider Name and Address Organization Details Recorded Time Routine antenata l care Completed 201405/19/2021 Supervis ion of other normal pregnanc y;Practi ce ID: 0001 Ela Leonel [facility] 11:42:52 Poor growth affectin g manageme nt [id number] Completed 201405/19/2021 GROWTH POOR SGA;Prac rayne ID: 0001 Ela Doddan [facility] 11:44:07 Oligohyd ramnios with antenata l problem [id number] Completed 201405/19/2021 Oligohyd ramnios, antepart um;Pract ice ID: 0001 Ela Leonel [facility] 11:42:58 Delivery normal [id number] Completed 201405/19/2021 Normal delivery ;Practic e ID: 0001 Ela Doddan [facility] 11:44:12 Single live from singleto n pregnanc y [id number] Completed 201405/19/2021 Mother with single liveborn ;Practic e ID: 0001 Ela Leonel [facility] 11:42:56 Postpart um care Completed 201405/19/2021 Postpart um follow-u p;Practi ce ID: 0001 Ela Castaneda [facility] 11:42:[address] Concept Completed 201505/19/2021 Encntr for supervisor brine exam (general ) (routine ) w/o abn findings ;Practic e ID: 0001 Ela keenan [facility] 11:44:05 Contrace ptive sheath status [id number] Completed 201605/19/2021 Encounte r for initial prescrip tion of other contrace ptives;P ractice ID: 0001 Ela keenan, [facility] 11:43:57 Maternal care for diminish ed movement s Completed 201209/03/2013 Decrease d movement s, affectin g manageme nt of mother, antepart um conditio n or complica tion;Rec orded Elsewher e: No Locat ion: [facility] S ource: EHR [employer] Helper landry: N Lola ce ID: 0001 Dave lable Time: 08:30:00 AM Ela Castaneda [facility] 11:43:00 Benign essentia l hyperten wang [id number] Completed 201405/19/2021 Hyperten wang, Benign;R ecorded Elsewher e: No Locat ion: [facility] S ource: EHR [employer] Hel[employer] landry: Iveth Davila ce ID: 0001 Dave lable Time: 01:45:00 PM Ela Castaneda [facility] 11:42:40 Routine antenata l care Completed 201209/03/2013 Supervis ion of other normal pregnanc y;Record ed Elsewher e: No Locat ion: [facility] S ource: EHR [employer] Hel[employer] landry: N Maoti ce ID: 0001 Dave lable Time: 11:15:00 AM Ela Castaneda [facility] 11:42:52 Amenorrh ea [id number] Completed 201205/19/2021 AMENORRH EA;Pract ice ID: 0001 Ela keenan, [facility] 11:42:53 Threaten ed miscarri age [id number] Completed 201205/19/2021 Threaten ed , antepart um;Pract ice ID: 0001 Ela keenan, [facility] 11:44:15 Speciali zed medical examinat ion Completed 201205/19/2021 Routine gynecolo gical examinat ion;Prac rayne ID: 0001 Ela keenan, [facility] 11:44:14 Pregnanc y test positive [id number] Completed 201205/19/2021 Positive Pregnanc y Test;Pra ctice ID: 0001 Ela keenan, [facility] 11:43:58 Ultrason ography Completed 201205/19/2021 Antenata l screenin g for malforma tion using ultrason ics;Prac rayne ID: 0001 Ela keenan, [facility] 11:42:55 Antenata l screenin g Completed 201205/19/2021 Antenata l screenin g for malforma tion using ultrason ics;Prac rayne ID: 0001 Ela keenan, [facility] 11:43:55 Congenit al malforma tion [id number] Completed 201205/19/2021 Antenata l screenin g for malforma tion using ultrason ics;Prac rayne ID: 0001 Ela keenan, [facility] 11:44:02 Abdomina l pain 70870263 Completed 201205/19/2021 Abdomina l pain, unspecif ied site;Pra ctice ID: 0001 Ela keenan, [facility] 11:44:49 Excessiv e growth affectin g manageme nt of mother [id number] Completed 201205/19/2021 GROWTH LARGE LGA;Prac rayne ID: 0001 Ela keenan, [facility] 11:43:53 Known OR suspecte d abnormal ity affectin g manageme nt of mother Completed 201205/19/2021 Unspecif ied suspecte d abnormal ity, affectin g manageme nt of mother, unspecif ied as to episode of care;Pra ctice ID: 0001 Ela keenan, [facility] 11:44:17 Maternal care for diminish ed movement s Completed 201205/19/2021 Decrease d movement s, affectin g manageme nt of mother, antepart um conditio n or complica tion;Pra ctice ID: 0001 Ela keenan, [facility] 11:43:00 Labor and delivery complica ed by heart rate anomaly [id number] Completed 201205/19/2021 HEART RATE NON REASSURI NG;Pract ice ID: 0001 Ela keenan, [facility] 11:44:00 Adult health examinat ion Completed 201305/19/2021 Routine general medical examinat ion at a health care facility ;Practic e ID: 0001 Ela keenan, [facility] 11:44:01 Obesity [id number] Completed 201305/19/2021 Obesity, unspecif ied;Prac rayne ID: 0001 Ela keenan, [facility] 11:44:09 Uterine size for dates discrepa ncy [id number] Completed 201305/19/2021 UTERINE SIZE VASILIY-ANTE PAR;Prac rayne ID: 0001 Ela keenan [facility] 11:44:10 Primigra junior [id number] Completed 201305/19/2021 Supervis ion of normal first pregnanc y;Practi ce ID: 0001 Ela keenan [facility] 11:42:[address] Concept Completed 201505/19/2021 Encntr for general adult medical exam w/o abnormal findings ;Recorde d Elsewher e: No Locat ion: [facility] S ource: EHR [employer] Hel[employer] landry: N Practi ce ID: 0001 Dave lable Time: 01:00:00 PM Ela keenan [facility] 11:44:04 Nausea and vomiting [id number] Completed 201209/03/2013 Nausea And Vomiting ;Recorde d Elsewher e: No Locat ion: [facility] S ource: EHR [employer] landry: N Practi ce ID: 0001 Dave lable Time: 11:15:00 AM Not Available [facility] 21:20:13 Routine antenata l care Completed 201209/03/2013 Supervis ion of other normal pregnanc y;Record ed Elsewher e: No Locat ion: [facility] S ource: EHR [employer] landry: N Practi ce ID: 0001 Dave lable Time: 02:00:00 PM Ela keenan [facility] 11:42:52 Problem Notes None recorded. Procedures Surgical History Date Name Laterality Status Provider Name and Address Organization Details Recorded Time 022 Bariatric Surgery completed Maritza Galo [facility] 04/25/2022 11:10:18 021 Total Hysterectomy completed Maritza Galo [facility] 04/25/2022 11:10:18 021 hysterectomy completed Nadira Blank [facility] 05/31/2021 16:44:59 016 Date of Last Pap Smear completed Ela Castaneda [facility] 05/19/2021 11:45:43 012 [facility] 11:48:59 Imaging Results None recorded. Procedure Notes None recorded. Medical Equipment None Reported. Allergies No known drug allergies Medications Name Sig Start Date Stop Date Status Note LastModified by Organization Details LastModified Time buspirone 5 mg tablet TAKE 1 TABLET BY MOUTH THREE TIMES DAILY active Not Available Not Available No t Available bupropion HCl SR 150 mg tablet,12 hr sustained -release TAKE 1 TABLET BY MOUTH DAILY 04/17 completed Not Available Not Available Not Available lamotrigi ne 200 mg tablet active Not Available Not Available Not Available lidocaine 4 % topical patch APPLY 1 PATCH TOPICALL Y TO THE SKIN DAILY NEEDED FOR PAIN. LEAVE ON FOR 12 HOURS ON MOST PAINFUL AREA. REMOVE FOR 12 HOURS AFTER active Not Available Not Available No t Available tizanidin e 2 mg tablet TAKE 1 TABLET BY MOUTH THREE TIMES DAILY NEEDED FOR MUSCLE SPASMS 08/01 completed Not Available Not Available Not Available citalopra m 40 mg tablet TAKE 1 TABLET BY MOUTH EVERY DAY 05/22 completed Not Available Not Available Not Available ibuprofen 800 mg tablet 05/22 completed Not Available Not Available Not Available hydrocodo ne 5 mg-acetam inophen 325 mg tablet TAKE 1 TABLET BY MOUTH EVERY 8 HOURS NEEDED FOR PAIN 08/01 completed Not Available Not Available Not Available prochlorp erazine maleate 5 mg tablet 08/01 completed Not Available Not Available Not Available sucralfat e 1 gram tablet TAKE 1 TABLET BY MOUTH EVERY 6 HOURS 08/01 completed Not Available Not Available Not Available metronida zole 0.75 % (37.5 mg/5 gram) vaginal gel INSERT 1 APPLICAT ORFUL VAGINALL Y EVERY DAY AT BEDTIME active Not Available Not Available No t Available lisinopri l 20 mg tablet TAKE 1 TABLET BY MOUTH DAILY 04/17 completed Not Available Not Available Not Available prednison e 20 mg tablet 04/17 completed Not Available Not Available Not Available clonazepa m 0.5 mg tablet TAKE 1 TABLET BY MOUTH TWICE DAILY NEEDED. AVOID PANIC ATTACKS active Not Available Not Available No t Available estradiol 0.1 mg/24 hr semiweekl y transderm al patch APPLY 1 PATCH TO THE SKIN 2 TIMES A WEEK active Not Available Not Available No t Available permethri n 5 % topical cream 08/01 completed Not Available Not Available Not Available Diflucan 150 mg tablet take 1 tablet by oral route once 02/24 completed Prescrib ed Elsewher e: No Locat ion: [facility] odify By: tad valenzuela DateTime : 01/12/20 15 01:45:00 PM Not Available Not Available Not Available meclizine 12.5 mg tablet TAKE 1 TABLET BY MOUTH THREE TIMES DAILY NEEDED FOR DIZZINES S active Not Available Not Available No t Available metronida zole 500 mg tablet TK 1 T PO Q 12 H 08/01 completed Not Available Not Available Not Available ciproflox acin 500 mg tablet 08/01 completed Not Available Not Available Not Available omeprazol e 40 mg capsule,d elayed release TAKE 1 CAPSULE BY MOUTH EVERY DAY FOR GERD OR HEARTBUR N 04/25 completed Not Available Not Available Not Available Reglan 10 mg tablet take 1 tablet (10MG) by oral route every 6 hours as needed for nausea 05/17 completed Prescrib ed Elsewher e: No Locat ion: [facility] odify By: mahi granados DateTime : 01/15/20 13 11:15:00 AM Not Available Not Available Not Available meloxicam 7.5 mg tablet active Not Available Not Available Not Available oxycodone -acetamin ophen 5 mg-325 mg tablet TAKE 1 TO 2 TABLETS BY MOUTH EVERY 4 HOURS NEEDED FOR PAIN 05/22 completed Not Available Not Available Not Available amoxicill in 875 mg tablet TAKE 1 TABLET BY MOUTH TWICE DAILY UNTIL ALL TAKEN 05/22 completed Not Available Not Available Not Available estradiol 0.025 mg/24 hr weekly transderm al patch APPLY 1 PATCH TOPICALL Y TO THE SKIN EVERY WEEK active Not Available Not Available No t Available dicyclomi ne 20 mg tablet TAKE 1 TABLET BY MOUTH THREE TIMES DAILY NEEDED FOR ABDOMINA L DISCOMFO RT 08/01 completed Not Available Not Available Not Available baclofen 10 mg tablet TAKE 1 TABLET BY MOUTH DAILY 08/01 completed Not Available Not Available Not Available Lamictal 25 mg tablet take 2 tablet by oral route 2 times every day 05/19 completed Prescrib ed Elsewher e: Yes Loca tion: [facility] odify By: jlperica harrell Enco unter DateTime : 01/15/20 13 11:15:00 AM Not Available Not Available Not Available cephalexi n 500 mg capsule TAKE 1 CAPSULE BY MOUTH TWICE DAILY FOR 10 DAYS active Not Available Not Available No t Available pantopraz ole 40 mg tablet,de layed release TAKE 1 TABLET BY MOUTH EVERY MORNING 08/01 completed Not Available Not Available Not Available hyoscyami ne sulfate 0.125 mg tablet TAKE 1 TABLET BY MOUTH FOUR TIMES DAILY NEEDED FOR INDIGEST ION OR ABDOMINA L PAIN active Not Available Not Available No t Available omeprazol e 20 mg capsule,d elayed release TAKE 1 CAPSULE BY MOUTH DAILY active Not Available Not Available No t Available diclofena c sodium 50 mg tablet,de layed release 04/17 completed Not Available Not Available Not Available ergocalci ferol (vitamin D2) 1,250 mcg (50,000 unit) capsule TAKE 1 CAPSULE BY MOUTH EVERY WEEK 08/01 completed Not Available Not Available Not Available zaleplon 5 mg capsule TAKE 1 CAPSULE BY MOUTH AT BEDTIME NEEDED FOR SLEEP.AV OID HIGH FAT MEAL/CASANDRA D IMMEDIAT COLE BEFORE DOSE. CAN INCREASE TO 2 CAPSULES NIGHTLY 08/01 completed Not Available Not Available Not Available Nor-Q-D 0.35 mg tablet take 1 tablet by oral route every day 12/21 completed Prescrib ed Elsewher e: No Locat ion: [facility] odify By: anali Diego ncounter DateTime : 03/29/20 15 03:15:00 PM Not Available Not Available Not Available ibuprofen 600 mg tablet TAKE 1 TABLET BY MOUTH EVERY 6 HOURS NEEDED FOR PAIN active Not Available Not Available No t Available estradiol 0.01% (0.1 mg/gram) vaginal cream INSERT 1 GRAM VAGINALL Y 2 TO 3 TIMES EVERY WEEK active Not Available Not Available No t Available ondansetr on 4 mg disintegr ating tablet DISSOLVE 1 TABLET ON THE TONGUE EVERY 8 HOURS NEEDED FOR NAUSEA OR VOMITING 08/01 completed Not Available Not Available Not Available Necon 0.5/35 (28) 0.5 mg-35 mcg tablet TAKE 1 TABLET BY ORAL ROUTE EVERY DAY 08/03 completed Prescrib ed Elsewher e: No Locat ion: [facility] odify By: rosalino merchantunter DateTime : 05/17/20 14 02:30:00 PM Not Available Not Available Not Available doxycycli ne hyclate 100 mg tablet TK 1 T PO D 05/22 completed Not Available Not Available Not Available oxycodone 5 mg tablet TAKE 1 TABLET BY MOUTH EVERY 6 HOURS NEEDED FOR PAIN active Not Available Not Available No t Available estradiol 0.025 mg/24 hr semiweekl y transderm al patch Apply 1 patch(es ) twice a week by transder mal route for 30 days. 2023 active Not Available Not Available Not Avai lable cholestyr amine (with sugar) 4 gram oral powder TAKE 4 GRAMS BY MOUTH DAILY WITH MEAL. AVOID OTHER MEDICATI ONS WITHIN 1 HOUR BEFORE OR 4-6 HOURS AFTER DOSE active Not Available Not Available No t Available Ortho-Cyc claudio (28) 0.25 mg-35 mcg tablet take 1 tablet by oral route every day 05/19 completed Prescrib ed Elsewher e: No Locat ion: [facility] odify By: chikis tz Encou nter DateTime : 09/11/19 17 11:30:00 AM Not Available Not Available Not Available mirtazapi ne 7.5 mg tablet 08/01 completed Not Available Not Available Not Available tizanidin e 2 mg capsule 04/25 completed Not Available Not Available Not Available tizanidin e 4 mg capsule TAKE 1 CAPSULE BY MOUTH THREE TIMES DAILY NEEDED FOR MUSCLE SPASMS. MAY CAUSE DROWSINE SS 04/25 completed Not Available Not Available Not Available Klonopin 04/25 completed Not Available Not Available Not Available Lamictal 05/22 completed Not Available Not Available Not Available Celexa 05/22 completed Not Available Not Available Not Available AlvarezAneta uo DHA 29 mg-1 mg-400 mg oral pack take 2 by Oral route every day for 30 days 02/12 completed Prescrib ed Valenciaher e: No Locat ion: [facility] odify By: jessica valenzuela DateTime : 01/15/20 13 11:15:00 AM Not Available Not Available Not Available Stimulant Laxative Plus 8.6 mg-50 mg tablet active Not Available Not Available Not Available Vitals Date Recorded Body height Body mass index (BMI) Body weight Systolic blood pressure Diastolic blood pressure Provider Name and Address Organization Details Last Updated DateTime 04/25/2022 160.02 cm 27.3 kg/m2 02449.22 g 117 mm[Hg] 76 mm[Hg] Maritza Galo [facility] 2 11:10:07 Date Recorded Body height Body mass index (BMI) Body weight Systolic blood pressure Diastolic blood pressure Provider Name and Address Organization Details Last Updated DateTime 04/27/2020 160.02 cm 36.5 kg/m2 83756.03 g 122 mm[Hg] 85 mm[Hg] Jazz Mai [facility] 0 12:05:17 Date Recorded Body height Body mass index (BMI) Body weight Systolic blood pressure Diastolic blood pressure Systolic blood pressure Diastolic blood pressure Provider Name and Address Organization Details Last Updated DateTime 1 160.02 cm 38.1 kg/m2 24904.3 6 g 157 mm[Hg] 100 mm[Hg] 143 mm[Hg] 95 mm[Hg] Ela Castaneda [facility] 1 12:25:46 Date Recorded Body height Body mass index (BMI) Body weight Systolic blood pressure Diastolic blood pressure Provider Name and Address Organization Details Last Updated DateTime 05/31/2021 160.02 cm 38.3 kg/m2 45912.95 g 126 mm[Hg] 90 mm[Hg] Nadira Blank [facility] 1 16:42:34 Date Recorded Body height Body mass index (BMI) Body weight Systolic blood pressure Diastolic blood pressure Provider Name and Address Organization Details Last Updated DateTime 08/01/2023 160.02 cm 19.4 kg/m2 42704.01 g 121 mm[Hg] 83 mm[Hg] Patricia Velez [facility] 3 11:14:16 Social History Question Answer Notes LastModified by Organizat ion Details LastModified Time Tobacco Smoking Status Never Smoker Patricia Velez null, [facility] 08/01/2023 11:12:28 Are You Blind Or Do You Have Difficulty Seeing? No Information n ot available 04/25/2022 What Is Your Level Of Caffeine Consumption? Moderate Information not available 08/01/2023 How Much Tobacco Do You Chew? None Information not available 08/01/2023 In The 14 Days Before Symptom Onset, Have You Had Close Contact With A Laboratory-confirm ed COVID-19 While That Case Was Ill? No Information n ot available 08/01/2023 In The 14 Days Before Symptom Onset, Have You Had Close Contact With A Person Who Is Under Investigation For COVID-19 While That Person Was Ill? No Information not available 08/01/2023 Have You Been To An Area Known To Be High Risk For COVID-19? No Information not available 08/01/2023 Are You Deaf Or Do You Have Serious Difficulty Hearing? No Information not available 04/25/2022 What Type Of Diet Are You Following? REGULAR Information n ot available 08/01/2023 What Is The Highest Grade Or Level Of School You Have Completed Or The Highest Degree You Have Received? [id number] Information not available 08/01/2023 Are There Any Guns Present In Your Home? No Information not available 08/01/2023 Do You Use Protection During Sex? No Information not available 08/01/2023 Do You Use Your Seat Belt Or Car Seat Routinely? Yes Information not available 08/01/2023 Do You Have Smoke And Carbon Monoxide Detectors In Your Home? Yes Information not available 08/01/2023 How Much Tobacco Do You Smoke? No Information not available 08/01/2023 Do You Use Sunscreen Routinely? No Information not available 08/01/2023 Have You Used IV Drugs? No Information not available 08/01/2023 Do You Have Difficulty Walking Or Climbing Stairs? No Information not available 08/01/2023 Sex: Unknown Functional Status Question Answer Note LastModified by Organizat ion Details LastModified Time Do you use any illicit or recreational drugs? No Information not available 08/01/2023 What is your level of alcohol consumption? None Information not available 08/01/2023 Are you able to walk? YESWOREST Information not available 04/25/2022 Are you able to care for yourself? 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 No Information not available 08/01/2023 What is your exercise level? Moderate Information not available 08/01/2023 Mental Status Question Answer Note LastModified by Organization D etails LastModified Time Do you feel stressed (tense, restless, nervous, or anxious, or unable to sleep at night)? [id number] Information not available 08/01/2023 Family History Relationship Description Onset Age of this Age Resolved Age Notes LastModified by Organization Details LastModified Time Mother Diabetes mellitus [email or web address] Not available 02/2022 11:10:10 Mother Diabetes mellitus [email or web address] Not available 2022 10:59:47 Maternal Grandmother Diabetes mellitus [email or web address] Not available 02/2022 11:10:10 Maternal Grandmother Diabetes mellitus Not available 2022 10:59:47 Maternal Grandfather Diabetes mellitus [email or web address] Not available 02/2022 11:10:10 Maternal Grandfather Diabetes mellitus Not available 2022 10:59:47 Medical History Condition Response Other Y Anxiety Disorder Y Gynecological History Statement/Question Response Abnormal Pap N Date of LMP 08/19/2020 Sexually Active? Y On BCP's at Conception? N STIs/STDs N HPV Vaccine N Date of Last Pap Smear 12/22/2015 Sexual Problems? N Current Control Method Hysterectom y LMP Definite Obstetrics History GPAL:G 3 P 3 0 0 3 Type Value Full Term 3 Living 3 Total 3 Past Encounters Encounter ID Performer Location Encounter Start Date Encounter Closed Date Diagnosis/Indication Diagnosis SNOMED-CT Code Diagnosis ICD10 Code Diagnosis [id number] [address] [address] 04/27/2020 11:44:58 04/27/2020 14:57:34 Secondary oligomenorrhea 02466158 N91.4 L70.9 L68.0 UNBILLABLE VISIT TODAY Recommende d labs with updated US and pelvic exam. Also discussed use of prometrium to help with withdrawal bleed each month while we evaluate her issues. Patient is self-pay & unsure she states she is not sure she can afford testing/im aging right now. I gave her general out of pocket prices if she is interested . we also discussed importance of menses at least q3mos to avoid increased risks of dysplasias /cancers/p recancers etc. She voiced understand ing. Time spent in visit is a total of 22 mins with at least 50% of visit consisting of counseling and review of plan of care. [id number] [facility] [address] [address] 05/22/2021 12:19:42 05/24/2021 22:07:37 Mass of left breast [id number] 9176730 N63.20 N64.52 Diagnostic susana and u/s ordered. If nl will rtc in 6 weeks. If abnormal imaging will schedule with specialist radha If nl imaging but lump persists at 6 week f/u will need to see specialist . I did order bilateral mamm and labs d/t nipple discharge. Discharge from right nipple [id number] 0054443 N64.52 Abdominal pain 54863511 R10.9 Hyst done in August. Pt will fill out records request from previous provider. I would like her to have a MD consult to review operative record and discuss. [id number] Eddie Manjarrez MD [place] [address] [address] 05/31/2021 16:21:45 06/01/2021 11:10:52 Pain in pelvis 46308832 R10.2 this patient is a 30-year-ol d female who presents for pelvic pain. She proceeds pelvic pain that is consistent with her endometrio sis. Patient underwent total hysterecto my and bilateral salpingo-o ophorectom y for endometrio sis. She was relieved of her pain for some time. She reports that pain has come back. She states it is very similar to her endometrio sis pain. the patient is interested in diagnostic laparoscop y. Upper post some possible alternativ es. She could reduce her dose of estrogen. She could discontinu e her estrogen. She could replace her Estring with norethindr one. This might be diagnostic for endometrio sis and treatment. The patient is not interested in this. She does not want to take any pills. She is currently on estrogen patch. I do not believe that diagnostic laparoscop y is appropriat e here. She denies any GI or urinary symptoms but I feel she should investigat e these areas for consider pelvic floor therapy. We spent over 15 minutes face-to-fa ce. More than 50% was counseling . [id number] ALFRED Hyatt [place] [address] [address] 04/25/2022 10:27:24 04/27/2022 17:19:54 Pain in pelvis 11388394 R10.2 Suspect cystocele and rectocele given exam and patient historyWe discussed this findingWe discussed pelvic floor physical therapy - she has been doing exercises at home, declines PFT at this time. She would like to explore surgical interventi on.We discussed urogyne referral, she would like to move forward with this.Refer ral sent Time spent in visit is a total of 20 mins with at least 50% of visit consisting of counseling and review of plan of care. Herniation of rectum into vagina 000837894 N81.6 Dyspareunia 68351894 N94 .10 History of endometriosis [id number] 2085905 Z87.42 Cystocele 117714820 N81. 10 [id number] ALFRED Hyatt [place] [address] [address] 08/01/2023 10:58:04 08/01/2023 12:13:21 Vaginitis 12218180 N76.0 vaginitis/ STI panel sentsuspec t BV - rx sentvulvar care guidelines discussed Menopausal flushing 1984 53132 N95.1 Discussed management optionsdes ires to restart estradiol patches - denies any contraindi cationsr/b /a reviewed - rx sentnotify PCP/neurol ogy, she is aware of potential decrease in lamotrigin e effectiven ess and need to discuss this with her care team Vaginal irritation 63798 6004 N89.8 recommende d estradiol creamr/b/a reviewedrx sent, use 2-3 times per weekveg based moisturize r routine discussedm ed check in 3 months needed Vaginal discharge 236429 006 N89.8 Venereal d isease screening 173106837 Z11.3 Screening for malignant neoplasm of breast 374703508 Z12.39 Herniation of rectum into vagina 774015474 N81.6 Cystocele 520757155 N81. 10 Recommende d PFPTshe would like referral to new urogyne for second opinion - referral placed Discharge from nipple 54 885448 N64.52 warrants updated imaging, orderedrec ommended f/u with previous breast specialist once imaging completepa tient to notify the office with any questions or concerns Time spent in visit is a total of 55 mins with at least 50% of visit consisting of counseling and review of plan of care. Breast lump 74500750 N63 .0 Health Concerns Section Related Observation LastModified by Organization Detai ls LastModified Time None Recorded Concern Status LastModified by Organization Details LastModified Time None Recorded Advance Directives Directive None Recorded Payers Encounter Date Sequence Insurance Name Policy Number Policy Nicholas Covered Member ID Nicholas Member ID Guarantor Name 05/22/2021 1 [place] [employer] Adrienne Tom [id number] Adrienne oTm 05/31/2021 1 [place] Adrienne Tom [id number] Adrienne Tom 04/25/2022 1 [facility] (MEDICAID HMO) [id number] Adrienne Tom [id number] Adrienne Tom 08/01/2023 1 [facility] (MEDICAID HMO) [id number] Adrienne Tom [id number] Adrienne Tom Notes Date Note Type Note Provider Name and Address Organization Details Recorded Time 0 text/html SELF-PAY (Unbillable visit) Patient is a 29yo white female here today to discuss irregular cycles. Will have a cycle q2-3mos over the last few years. Has no insurance so has not been evaluated. Considering but she has been unsuccessful as cycles have not been regular. She is . Monogamous relationship. Menarche age 10yo No Previous Hx of irregular cycles except for this past year. Neg pain. Neg urinary sx's. neg GI issues Neg vag d/c, odor, itching. Jennifer Newell, [facility] [address], [place], [address], [facility] 05/13/2020 16:46:50 1 text/html Hyst with Dr Castañeda @ [facility] in August. Has not followed up because it ended on bad terms.Pain improved for 5 months but has now returned.Constant aching and throbbing in lower abd and lower back.Right nipple discharge off and on for 10 monthsLeft breast lump x 6 weeks Jeanne keenan, [facility] 05/29/2021 01:58:24 1 text/html this patient is a 30-year-old female who presents for pelvic pain. She proceeds pelvic pain that is consistent with her endometriosis. Patient underwent total hysterectomy and bilateral salpingo-oophorectomy for endometriosis. She was relieved of her pain for some time. She reports that pain has come back. She states it is very similar to her endometriosis pain. the patient is interested in diagnostic laparoscopy. Upper post some possible alternatives. She could reduce her dose of estrogen. She could discontinue her estrogen. She could replace her Estring with norethindrone. This might be diagnostic for endometriosis and treatment. The patient is not interested in this. She does not want to take any pills. She is currently on estrogen patch. I do not believe that diagnostic laparoscopy is appropriate here. She denies any GI or urinary symptoms but I feel she should investigate these areas for consider pelvic floor therapy. We spent over 15 minutes [id number]. More than 50% was counseling. Eddie Manjarrez MD [address], [place], [address], [facility] 05/31/2021 18:28:49 2 text/html 31yo [id number] for evaluation of possible prolapseS/p TLH, BSO 09/04/2020 for pelvic pain/endometriosis at outside facilityStates her pain was resolved for about 4 months after procedure, then returnShe has pelvic pains on and off, bilateral lower aching, pain with intercourseLeaking urine - mixed urge and stressHaving daily bowel movements, but hard to pass stool. Will have to manually insert her fingers in the vagina and press on posterior vaginal wall to release stool at times.She takes a daily stool softenerOn estradiol patch for HRTWas seeing a breast specialist for nipple discharge, was told to return to their clinic but has not ALFRED Hyatt [address], [place], [address], [facility] 04/30/2022 14:47:38 3 text/html 31yo [id number] for evaluation of multiple symptomsS/p TLH, BSO 09/04/2020 for pelvic pain/endometriosis at outside facilitywas on estradiol patches after surgery but ran out of refills. Since stopping patches she has been experiencing hot flashes/night sweats, trouble sleeping.vulvar irritation/drynessfor the past 1 week copious amounts of discharge with slight odorh/o cystocele and rectocele - saw urogyne about this 1 yr ago that recommended PFPT. She would like referral for second opinion. Does not want a pessary. Stress and urge incontinence at times, bowel movements can be difficult - has had to insert finger in the vagina to relieve pressure to make bowel movements easier. Denies any hard stool/constipation/diar rhearight nipple d/c continues at time, seen breast specialist in 2020 w/ normal imaging but has not been back for f/umedical hx: epilepsy (last seizure 2011), anxiety/depression, bariatric surgery in 2021, cholecystotomy in 2011 ALFRED Hyatt [address], [place], [address], [facility] 08/01/2023 12:10:11 OBGyn Episode Ob Episode Information Episode Created Date Number of Fetuses Patient Bloodtype Patient rh Status Prepregnancy Weight lbs Domestic Partner Domestic Partner Phone Father Name Snake Charmer Status 04/27/20 20 1 CLOSED Fetus Data First Name Last Name Admitted to NICU Weight (g) Sex Living Outcome Pediatric Complications Fetus ID Race Codes Race Delivery Type 2834.95 M Full Term [id number] Vaginal Delivery Conner Calculation Initial Conner Date Initial Exam Date Initial Exam Provider Initial Ultrasound Date Last Menstrual Period Date Ultra Sound Weeks Gestation 0 Eighteen To Twenty Week Conner Update Ultra Sound Date Fundal Height At Umbil Quickening Date Ultra Sound Latest Weeks Gestation Final Conner Confirmed By Final Conner Confirmed Date Final Conner Date Ultra Sound Latest Days Gestation 0 0 Menstrual History Last Menstrual Date Menses Monthly On Bcp Conception Prior Menses Frequency Hcg Plus Date Menarche Onset Age Delivery Information Delivery Date Delivery Type Labor Anesthesia Weeks Gestation Incision Type Labor Labor Length Hrs Delivered By Post Complications Tubal Sterilization Discharge Date Comments 0 40 Discharge Information Feeding Method Contraceptive Method Maternal HG B and HCT Levels Ob Episode Information Episode Created Date Number of Fetuses Patient Bloodtype Patient rh Status Prepregnancy Weight lbs Domestic Partner Domestic Partner Phone Father Name Snake Charmer Status 04/27/20 20 1 CLOSED Fetus Data First Name Last Name Admitted to NICU Weight (g) Sex Living Outcome Pediatric Complications Fetus ID Race Codes Race Delivery Type 3118.44 5 F Full Term 4382 Vaginal Delivery Conner Calculation Initial Conner Date Initial Exam Date Initial Exam Provider Initial Ultrasound Date Last Menstrual Period Date Ultra Sound Weeks Gestation 0 Eighteen To Twenty Week Conner Update Ultra Sound Date Fundal Height At Umbil Quickening Date Ultra Sound Latest Weeks Gestation Final Conner Confirmed By Final Conner Confirmed Date Final Conner Date Ultra Sound Latest Days Gestation 0 0 Menstrual History Last Menstrual Date Menses Monthly On Bcp Conception Prior Menses Frequency Hcg Plus Date Menarche Onset Age Delivery Information Delivery Date Delivery Type Labor Anesthesia Weeks Gestation Incision Type Labor Labor Length Hrs Delivered By Post Complications Tubal Sterilization Discharge Date Comments 3 37 Discharge Information Feeding Method Contraceptive Method Maternal HG B and HCT Levels Ob Episode Information Episode Created Date Number of Fetuses Patient Bloodtype Patient rh Status Prepregnancy Weight lbs Domestic Partner Domestic Partner Phone Father Name Snake Charmer Status 04/27/20 20 1 CLOSED Fetus Data First Name Last Name Admitted to NICU Weight (g) Sex Living Outcome Pediatric Complications Fetus ID Race Codes Race Delivery Type 2409.48 0704 F Full Term 4383 Vaginal Delivery Conner Calculation Initial Conner Date Initial Exam Date Initial Exam Provider Initial Ultrasound Date Last Menstrual Period Date Ultra Sound Weeks Gestation 0 Eighteen To Twenty Week Conner Update Ultra Sound Date Fundal Height At Umbil Quickening Date Ultra Sound Latest Weeks Gestation Final Conner Confirmed By Final Conner Confirmed Date Final Conner Date Ultra Sound Latest Days Gestation 0 0 Menstrual History Last Menstrual Date Menses Monthly On Bcp Conception Prior Menses Frequency Hcg Plus Date Menarche Onset Age Delivery Information Delivery Date Delivery Type Labor Anesthesia Weeks Gestation Incision Type Labor Labor Length Hrs Delivered By Post Complications Tubal Sterilization Discharge Date Comments 5 37 Discharge Information Feeding Method Contraceptive Method Maternal HG B and HCT Levels
[2025-01-21 13:49] VITALS: PULSE 85
[2025-01-21 13:50] VITALS: BP 118/74; PULSE 84; RESP 15; TEMP 36.6; O2SAT 100
[2025-01-21 13:57] LABS: Troponin I < 0.012 ng/mL (0.000-0.034)
[2025-01-21 14:00] LABS: Prothrombin Time 13.6 Seconds (11.1-14.7)
[2025-01-21] MEDS: ASPIRIN 81 MG CHEWABLE TABLET 324 MG PO (14:00)
[2025-01-21 14:21] LABS: D Dimer 0.53 ug/mL (<0.48)
--- NOTE | 2025-01-21 14:35 | ED_ITS ---
HPI - General Adult General Chief complaint: Chest Pain Stated complaint: chest pain, out of klonopin Time Seen by Provider: 01/21/25 13:37 History of Present Illness HPI narrative: 34-year-old female present to the emergency department for evaluation of intermittent tachycardia and chest pain. Patient states she has been off of her Klonopin for the last 5 days but this was refilled today by her primary care physician but she has not yet filled the prescription. Patient reports she did have gastric bypass surgery years ago and had an excessive amount of weight loss. Patient states she is now an A positive and does have follow-up with Rheumatology. Today patient was at the gym when she had increased her heart rate to approximately 160. Upon arrival emergency department patient's heart rate is now normal sinus rhythm. Patient is tearful but denies any current chest pain or shortness of breath. Related Data Home Medications ?Medication ?Instructions ?Recorded ?Confirmed ?Last Taken ?Type clonazepam 0.5 mg tablet (Klonopin) 0.5 mg PO QHS 10/02/23 12/07/24 Unknown History buspirone 5 mg tablet 5 mg PO TID 12/07/24 12/07/24 Unknown History Allergies Allergy/AdvReac Type Severity Reaction Status Date / Time No Known Allergies Allergy Verified 01/21/25 13:58 Review of Systems 2 Review of Systems: All systems reviewed & are unremarkable except as noted in HPI and below PMFSH Past Medical History Medical History Failure to thrive LUQ abdominal pain Lumbar degenerative disc disease Salpingitis Post hysterectomy menopause Seizure disorder Anxiety Depression Vaginal delivery x 3 Surgical History Surgical History History of sleeve gastrectomy S/P gastric sleeve procedure Bariatric surgery status H/O wrist surgery cyst from Left History of hysterectomy History of cholecystectomy Family History Family History Grandparent Acute myocardial infarction Mother Hypertension Other Cervical cancer Diabetes mellitus Social History Social History Smoking packs per day: 0.5 Smoking cigarettes per day: 10.0 Years smoked: 3 Smoking pack-years: 1.50 Smoking status: Former smoker Tobacco type: cigarettes Smoking end date: 08/19/10 Alcohol intake: current Alcohol use details: seldom Substance use: current Substance use type: marijuana Other substance usage details: THC edibles Do You Feel Safe in your Home?: Yes Lack of Transportation: No Lack of Food: Sometimes True Current Housing: I Have Housing Concerned About Future Housing: YES Difficulty Paying Gas/Electric Bills: YES Difficulty Paying for Meds: No Currently Unemployed: YES Education: High School Diploma/GED Difficulty w/ Childcare or Family Care: No Living arrangements: with family Spiritual care concerns: No Exam 2 Narrative: APPEARANCE: Well appearing, no pain, no distress, well-nourished. HEAD: normocephalic, atraumatic. EYES: PERRLA/EOMI, conjunctivae clear. NOSE: Normal no drainage EARS:TMS clear with good light reflex. THROAT: Pharynx clear, no exudate. NECK: Supple. No adenopathy, no masses. RESPIRATORY: Airway patent, respirations nonlabored. Clear to auscultation bilaterally, no rales, rhonchi, wheezing. CARDIOVASCULAR: Regular rate and rhythm without murmurs rubs or gallops. ABDOMINAL: Soft, nontender, nondistended, normal bowel sounds MUSCULOSKELETAL: Moves all extremities. Strength/ROM intact, No edema, No calf tenderness. NEURO: Alert. Cranial nerves II through XII intact. Good gait. Good coordination SKIN: Warm, dry. Normal Color Course Vital Signs Vital signs: Vital Signs Temperature 97.6 F 01/21/25 13:12 Pulse Rate 120 H 01/21/25 13:12 Respiratory Rate 20 01/21/25 13:12 Blood Pressure 127/99 H 01/21/25 13:12 Pulse Oximetry 100 01/21/25 13:12 Oxygen Delivery Room Air 01/21/25 13:12 Temperature 98 F 01/21/25 13:50 Pulse Rate 85 01/21/25 16:17 Respiratory Rate 15 01/21/25 16:17 Blood Pressure 120/91 H 01/21/25 16:17 Pulse Oximetry 100 01/21/25 16:17 Oxygen Delivery Room Air 01/21/25 13:50 Medical Decision Making MDM Narrative Medical decision making narrative: 34-year-old female presents emergency department for evaluation for intermittent chest pain and anxiety. Patient is currently afebrile with no leukocytosis hemoglobin of 14.9. Patient's INR is 1.0. Patient does have an elevated D- dimer at 0.53. No evidence of pulmonary embolism. The patient states she does have an outpatient prescription for her Klonopin. Patient was treated with benzos emergency department did feel improved. Patient was encouraged close follow-up with primary care physician for additional outpatient cardiac testing Differential Diagnosis Differential Diagnosis: ACS, pulmonary embolism, benzodiazepine withdrawal, chest pain, atypical chest Vital Signs Vital Signs: Vital Signs Temperature 97.6 F 01/21/25 13:12 Pulse Rate 120 H 01/21/25 13:12 Respiratory Rate 20 01/21/25 13:12 Blood Pressure 127/99 H 01/21/25 13:12 Pulse Oximetry 100 01/21/25 13:12 Oxygen Delivery Room Air 01/21/25 13:12 Temperature 98 F 01/21/25 13:50 Pulse Rate 85 01/21/25 16:17 Respiratory Rate 15 01/21/25 16:17 Blood Pressure 120/91 H 01/21/25 16:17 Pulse Oximetry 100 01/21/25 16:17 Oxygen Delivery Room Air 01/21/25 13:50 Lab Data Lab results reviewed: Yes I reviewed the patient's lab results. 01/21/25 13:21 01/21/25 13:21 Labs: Lab Results 01/21/25 01/21/25 Range/Units 13:21 13:22 WBC 8.5 (4.5-10.0) K/mm3 RBC 4.94 (4.2-5.4) M/mm3 Hgb 14.9 (12.0-15.0) g/dL Hct 43.6 (37.0-47.0) % MCV 88.3 (80-100) fl MCH 30.2 (26-34) pg MCHC 34.2 (32-36) g/dl RDW 11.9 (11.5-14.5) % Plt Count 350 (150-375) k/mm3 MPV 9.8 (7.4-10.4) fl Immature Gran % (Auto) 0.1 (0-0.5) % Neut % (Auto) 52.4 (45.5-73.1) % Lymph % (Auto) 40.7 (18.3-44.2) % [place] % (Auto) 5.4 (2.6-8.5) % Eos % (Auto) 0.7 (0-4.4) % Baso % (Auto) 0.7 (0.2-1.2) % Lymph # (Auto) 3.47 H (0.9-3.2) K/mm3 [place] # (Auto) 0.5 (0.1-0.6) K/mm3 Eos # (Auto) 0.1 (0-0.3) K/mm3 Baso # (Auto) 0.1 (0.0-0.1) K/mm3 Abs Immat Gran (auto) 0.01 (0.00-0.031) K/mm3 Absolute Neuts (auto) 4.5 (1.3-6.7) K/mm3 Absolute Nucleated RBC 0.000 (0.0-0.012) K/mm3 Nucleated RBC % 0.0 (0.0-0.2) % PT 13.6 (11.1-14.7) Seconds INR 1.0 APTT 26.0 (22.3-36.8) Seconds D-Dimer 0.53 H (<0.48) ug/mL Sodium 138 (137-145) mmol/L Potassium 3.4 (3.4-5.0) mmol/L Chloride 103 (98-107) mmol/L Carbon Dioxide 19 L (22-30) mmol/L Anion Gap 16 H (4-12) mmol/L BUN 18 H (7-17) mg/dL Creatinine 0.88 (0.7-1.0) mg/dL Estim Creat Clear Calc 52 ml/min Estimated GFR > 60 (59 - ) Glucose 126 H (65-110) mg/dL Calcium 10.0 (8.4-10.2) mg/dL Total Bilirubin 1.3 (0.2-1.3) mg/dL AST 31 (14-36) U/L ALT 23 (6-35) U/L Alkaline Phosphatase 96 (38-126) U/L Troponin I < 0.012 (0.000-0.034) ng/mL Total Protein 8.6 H (6.3-8.2) g/dL Albumin 5.4 H (3.5-5.1) g/dL Lipase 74 (23-300) U/L Imaging Data Radiologist's impression: Impressions Chest X-Ray 01/21/25 14:14 IMPRESSION: 1: NO ACUTE CARDIOPULMONARY DISEASE. Chest CTA 01/21/25 15:15 IMPRESSION: 1. No pulmonary embolism. 2. No acute cardiopulmonary pathology. Discharge Plan Discharge Clinical Impression: Tachycardia, Benzodiazepine withdrawal Patient Disposition: Home Condition: Stable Instructions: Antibiotic Form, Tachycardia (ED) Additional Instructions: Drink plenty of fluids. Take your Klonopin as directed. Have close follow-up with your primary care physician. If you have any worsening symptoms then please call or return to the emergency department. Patient Language: Serbian Prescriptions: No Action buspirone 5 mg tablet 5 mg PO TID clonazepam [Klonopin] 0.5 mg tablet 0.5 mg PO QHS Rx Instructions: administer 30 minutes before bedtime lamotrigine 200 mg tablet 200 mg PO BID Qty: 60 8RF Rx Instructions: TAKE 1 TABLET(200 MG) BY MOUTH TWICE DAILY lidocaine [Aspercreme (lidocaine)] 4 % adhesive patch,medicated 1 patch topical DAILY PRN (Reason: pain) Qty: 30 1RF Rx Instructions: leave on for 12 hours on most painful area. Remove for 12 hours after. Follow-up/Referrals: Fabien Spring APRN [Primary Care Provider] - Quality HEART score for chest pain patients History: slightly suspicious ECG: normal Age: < or = to 45 years Risk factors: 1 or 2 risk factors Troponin: < or = to 1x normal limit Heart score: 1
[2025-01-21] MEDS: LORazepam INJ (*CRX) 2 MG/ML VIAL 1 MG IV PUSH (14:48)
--- OUTSIDE RECORDS SUMMARY | 2025-01-21 15:14 | XMS_ITS | Encounter Summary ---
Author Organization [facility] Address [address] [place] [address] Care Team Providers Care Medical Insurance Collector Name Role Phone Dennys Mohanandrey Gaines RESERVATION AGENT Primary Care Provider Reason for Visit * Reason Onset Date Comments Ulcerative Colitis 03/06/2023 LEFT SECURE E [facility] CHAT/ [facility] Encounter Details Date Type Department Care Team (Late st Contact Info) Description 03/06/2023 Telephone [facility] Admitting [address] [place] [address] [place] [address] [facility] [address] [place] [address] Ulcerative Colitis (LEFT SECURE EPIC [...] place to sleep or slept in a halfway (including now)? Patient refused 03/05/2023 Feeling Safe [...] on file Legal Sex Female 2:49 PM CAPSULE MAKER Gender Identity Not on file Sexual Orientation [...] documented as of this encounter Care Teams Medical Insurance Collector Relationship Specialty Start Date End Date Bernice Mohan FNP [address] [place] [address] PCP - General Nurse Practitioner Family 09/04/21 documented as of this encounter
--- OUTSIDE RECORDS SUMMARY | 2025-01-21 15:14 | XMS_ITS | Clinical Summary ---
Author Organization [employer] [facility] Address [address] [place] [address] Care Team Providers Care Director Surface Transportation Name Role Phone Dennys Mohanandrey Gaines COAL BRIQUETTE MACHINE OPERATOR Primary Care Provider [phone] Allergies No known active allergies Medications busPIRone [...] on file Legal Sex Female 2:49 PM SKIVER BLOCKERS Gender Identity Not on file Sexual Orientation [...] Advance Directives For more information, please contact: [phone] * Full Code (Latest Code Status on File) Date Activated Date Inactivated Comments 03/05/2023 7:32 AM 03/07/2023 9:35 PM Care Teams Director Surface Transportation Relationship Specialty Start Date End Date Bernice Mohan FNP [address] [place] [address] PCP - General Nurse Practitioner Family 09/04/21
--- OUTSIDE RECORDS SUMMARY | 2025-01-21 15:14 | XMS_ITS | CONTINUITY OF CARE DOCUMENT ---
Author Name kaiser saab Address Unknown Organization [facility] Address [address] [place] [address] [address] [place] [address] Phone [phone] Care Team Providers Care Laboratory Animal Caretaker Name Role Phone Ross DOTY, Cyrus Unavailable [phone] ELVIA MONSALVE MD Unavailable [phone] ELVIA MONSALVE MD Unavailable [phone] PROBLEMS Condition Status Date Provider Notes IRON DEFICIENCY active Cyrus Hawkins MD Vitamin D deficiency active Cyrus Cornell Chest pain-type to be determined active Jerald Hawkins MD Obesity active Cyrus Hawkins MD Tobacco use, quit active Cyrus Hawkins MD Panic disorder active Cyrus Hawkins MD Epilepsy active Cyrus Hawkins MD Dyspnea on exertion active Cyrus Hawkins MD ? Sleep apnea active Cyrus Hawkins MD Palpitations; active Cyrus Hawkins MD ENCOUNTERS Date Type Provider Location Encounter Diag nosis - In-person encounter Office Visit Cyrus Hawkins MD [place] [facility] Chest pain-type to be determinedObesityTobacco use, quitPanic disorderEpilepsyDyspnea on exertion? Sleep apneaPalpitations; VITAL SIGNS Date Observation Value Provider Body Mass Index (Ratio) 31.53 kg/m2 Alycia Hawkins MD blood pressure, resting No Jeimy Mendez blood pressure, diastolic 81 mm[Hg] Joni Mendez blood pressure, systolic 117 mm[Hg] Kira Mendez oxygen saturation, oximetry 98 % Jesus Mendez respiratory rate E&M 18 /min Shaquille Mendez pulse rate 68 /min Jesus collins weight E&M 178 [lb_av] Jesus collins height E&M 63 [in_i] Jesus collins ALLERGIES No Known Drug Allergies RESULTS Date Observation Value Provider Reference Range Interpretation Location pro brain natriuretic peptide 51 pg/mL [facility] 0-130 D-dimer quantitative mcg/mL 0.21 MG/L FEU [facility] 0.00-0.49 5 ferritin, serum 67 ng/mL [facility] 15-150 5 B-12, serum 551 pg/mL [facility] 232-1245 c-reactive protein, quantitative, serum 2.23 mg/L [facility] 0.00-3.00 5 folate, serum 18.7 ng/mL [facility] >3.0 5 iron saturation percent, serum 25 % [facility] 15-55 5 iron, serum 82 ug/dL [facility] 27-159 5 iron binding capacity, unsaturated 243 ug/dL [facility] 719-519 9093/09/0 5 iron binding capacity, total 325 ug/dL [facility] 432-888 9593/09/0 5 free thyroxine index 1.4 [facility] 1.2-4.9 5 triiodothyronine resin uptake 23 % [facility] 24-39 Low 5 thyroxine, serum, total 6.2 ug/dL [facility] 4.5-12.0 5 hemoglobin A1C, blood, as % of total hemoglobin 5.2 % [facility] 4.8-5.6 5 prothrombin time (patient) 10.1 s [facility] 9.1-12.0 5 international normalized ratio (INR) 1.0 [facility] 0.8-1.2 5 lipoprotein, beta, serum, point, quantitative, calculated 84 mg/dL [facility] 0-99 5 very low density lipoproteins 14 mg/dL [facility] 5-40 5 HDL cholesterol, serum 67 mg/dL [facility] >39 5 triglyceride, serum, random 69 mg/dL [facility] 0-149 5 cholesterol, serum 165 mg/dL [facility] 274-517 0509/09/0 5 basophil count, absolute 0.0 x10E3/uL [facility] 0.0-0.2 5 Eosinophil Absolute Count 0.1 X10E3/UL [facility] 0.0-0.4 5 monocyte count, blood, automated 0.4 X10E3/UL [facility] 0.1-0.9 5 lymphocyte count, blood, automated 2.7 X10E3/UL [facility] 0.7-3.1 5 Absolute Neutrophils 3.7 X10E3/UL [facility] 1.4-7.0 5 basophils as percent of blood leukocytes 0 % [facility] Not Estab. 5 eosinophils as percent of blood leukocytes 2 % [facility] Not Estab. 5 monocytes as percent of blood leukocytes 5 % [facility] Not Estab. 5 lymphocytes as percent of blood leukocytes 39 % [facility] Not Estab. 5 neutrophils as percent of blood leukocytes 54 % [facility] Not Estab. 5 platelet count 294 X10E3/UL [facility] 925-013 7244/09/0 5 red blood cell distribution width 13.1 % [facility] 12.3-15.4 5 mean corpuscular hemoglobin concentration, RBC 34.5 G/DL [facility] 31.5-35.7 5 mean corpuscular hemoglobin, RBC 31.3 pg [facility] 26.6-33.0 5 mean corpuscular volume, RBC 91 fL [facility] 79-97 5 hematocrit, blood 41.2 % [facility] 34.0-46.6 5 hemoglobin, blood 14.2 g/dL [facility] 11.1-15.9 5 erythrocyte (RBC) count 4.53 X10E6/UL [facility] 3.77-5.28 5 leukocyte count, blood 6.9 X10E3/UL [facility] 3.4-10.8 5 alanine aminotransferase (SGPT), serum 21 1/L [facility] 0-32 5 aspartate aminotransferase (SGOT), serum 21 1/L [facility] 0-40 5 alkaline phosphatase, serum 73 1/L [facility] 39-117 5 bilirubin, serum, total 0.2 mg/dL [facility] 0.0-1.2 5 albumin/globulin ratio, serum 2.0 [facility] 1.2-2.2 5 globulin, serum 2.5 [facility] 1.5-4.5 5 albumin, serum 5.0 g/dL [facility] 3.5-5.5 5 protein, total, serum 7.5 g/dL [facility] 6.0-8.5 5 calcium, serum 9.4 mg/dL [facility] 8.7-10.2 5 carbon dioxide, venous blood 24 mmol/L [facility] 20-29 5 chloride, serum 104 mmol/L [facility] 96-106 5 potassium, serum 4.3 mmol/L [facility] 3.5-5.2 5 sodium, serum 143 mmol/L [facility] 228-859 2652/09/0 5 urea nitrogen/creatinine ratio, serum 10 [facility] 9-23 5 eGFR if 110 mL/min/{1 .73_m2} [facility] >59 5 eGFR if not 96 mL/min/{1 .73_m2} [facility] >59 5 creatinine, serum 0.83 mg/dL [facility] 0.57-1.00 5 urea nitrogen, blood 8 mg/dL [facility] 6-20 5 blood glucose, random 92 mg/dL [facility] 65-99 HISTORY OF MEDICATION USE Medication Status Instructions Dates Provider Indications Com ments FERROUS SULFATE 325 (65 FE) MG ORAL TABLET active ONE PER DAY 5 Cyrus Hawkins MD VITAMIN D3 57761 UNIT ORAL TABLET active TAKE ONE TAB BY MOUTH WEEKLY 5 Cyrus Hawkins MD TOPAMAX 100 MG ORAL TABLET completed one tab daily w/the phentermine 4 - 4 Jeimy Fishman RN PHENTERMINE HCL 37.5 MG ORAL TABLET completed 1/2 tab daily 4 - 4 Jeimy Fishman RN ADVIL 200 MG ORAL TABLET active as needed Jesus Mendez CLONAZEPAM 0.5 MG ORAL TABLET active 1 tab twice daily as directed Jesus Mendez CITALOPRAM HYDROBROMIDE 10 MG ORAL TABLET active 1 tab at bedtime Jesus Mendez LAMICTAL 200 MG ORAL TABLET active 1 tab twice daily Jesus Mendez SOCIAL HISTORY Date Observation Value Provider quit smoking, stage quit Cyrus warner MD social history E&M S moking History: Inessa chapman is a former smoker. Cyrus Hawkins MD social history reviewed E&M revi ewed - no changes required Cyrus Hawkins MD cigarette use yes Jesus tomlinson smoking status Former smoker Jesus [facility] FAMILY HISTORY Family Member Condition Mother Family History of Hy pertension: Mother Family History of Di abetes: INSURANCE PROVIDERS Payer name Policy type / Coverage type [place] red green party ID LI MEDICAID Medicaid [id number] [employer] Medicaid [id number] ADVANCE DIRECTIVES Name Date DISCUSSED - NO DECISION MADE TREATMENT PLAN Date Name Performer Cardiology Cyrus Hawkins MD Cardiology Cyrus Hawkins MD Cardiology Cyrus Hawkins MD Cardiology Cyrus Hawkins MD Cardiology Cyrus Hawkins MD Cardiology:will rx Cyrus Hawkins MD Cardiology Cyrus Hawkins MD Cardiology:mult sx will garcia Jameel Hawkins MD Date Name Sleep Study Home CT, Coronary Calcium Score VITAMIN B12 Vitamin D, 25-Hydrox y HEMOGLOBIN A1c FOLATE, SERUM PROTHROMBIN TIME WIT H INR D-DIMER, QUANTITATIV E COMPREHENSIVE METABO LIC PANEL, W/EGFR C-REACTIVE PROTEIN LIPID PANEL THYROID PANEL WITH T SH, 3RD GENERATION PROBNP, N TERMINAL CBC (INCLUDES DIFF/P LT) IRON AND TOTAL IRON BINDING CAPACITY FERRITIN DLCO - 26928 FRC - 54222 FVC - 94200 STR - Routine Complete Echo Mobile Cardiac Tele CXR- PA/Lat HISTORY OF PROCEDURES Procedure Date Procedure Name Provider Procedure Notes S tatus Event Monitor Mt andrade ed EKG Cyrus Hawkins MD complete d
--- OUTSIDE RECORDS SUMMARY | 2025-01-21 15:14 | XMS_ITS | Continuity of Care Document ---
Author Organization [facility] Address [address] [place] [address] Phone Care Team Providers Care Physiotherapy Aide Name Role Phone Rubio Bernardo MD Unavailable Unavailable Allergies, Adverse Reactions, Alerts Substance Reaction Status Criticality No Known Allergies Active No Inform ation Medications Medication Instructions Dosage Effective Dates (start - stop) Status Comments Celexa 10 mg tablet take 1 tablet by ora l route every day 10 MG - Active Klonopin 0.5 mg tablet take 1 tablet by oral route 2 times every day 0.5 MG - Active Lamictal 200 mg tablet take 1 tablet by oral route 2 times every day 200 MG - Active Ventolin HFA 90 mcg/actuation aerosol inhaler inhale 2 puff by inhalation route every 4 - 6 hours as needed as needed - Active PRN for sob Procedures Procedure Date PREV VISIT, NEW, AGE 18-39 Advance Directives Directive Yes / No Effective Date File Name No Information Encounters Encounter Description Practice Location Reason(s) For Visit Diagnoses Date Provider Providers Copied on Encounter [facility], [address], [place], [place], [id number], [place] tel:[phone] [facility] No Information zA Bergeron. [address], [facility] [place], [id number], [place]. tel:[phone] Referring Provider: Rubio Bernardo, [address] [facility] [address], [place], [place], [id number]. tel:[phone] PREV VISIT, NEW, AGE 18-39 [facility], [address], [place], [place], [id number], [place] tel:[phone] [facility] Medicine PHysical (chief complaint) Encntr for general adult medical exam w/o abnormal findings Az Bergeron. [address], [place], [place], [id number], [place]. tel:[phone] Referring Provider: Rubio Bernardo [address], [place], [place], [id number]. tel:[phone] Family History Family Member Type Diagnosis Age [...] [address] [place], [place] [id number] Ordered: Referrals: Allopathic & Osteopathic Physicians : [...] to get enough air. Pt went to [place] 10 days ago but her above symptoms [...]
--- OUTSIDE RECORDS SUMMARY | 2025-01-21 15:14 | XMS_ITS | Clinical Summary ---
Author Organization [facility] Address [address] [place] [place] [address] Care Team Providers Care Supervisor Ditching Name Role Phone Bernice Mohan DIRECTOR BUSINESS MANAGEMENT-HIGH PRESSURE KETTLE OPERATOR Primary Care Provider Source Comments [facility],non-owned Affiliates and Associated Physician Practices is amultiple site organization consisting of ambulatory clinics and hospital sitesin [place], [place], [place] and [place]. This disclosure is being madepursuant to the Care Everywhere program and may not contain all information available regarding this patient. Last updated 18.[facility] Allergies No known active allergies Medications * [...] on file Legal Sex Female 5:34 AM MANAGER POLICY Gender Identity Not on file Sexual Orientation Not on file Last Filed Vital Signs Vital Sign Reading Time Taken Comments Blood Pressure 120/88 11/18/2023 11:09 AM CDT Pulse 78 10/10/2023 10:34 AM MANAGER POLICY Temperature 36.4 C (97.6 F) 10/10/2023 10:00 AM MANAGER POLICY Respiratory Rate 16 10/10/2023 10:34 AM MANAGER POLICY Oxygen Saturation 99% 10/10/2023 10:34 AM MANAGER POLICY Inhaled Oxygen Concentration - - Weight 50.8 [...] patient's age to complete this topic Insurance [facility] Care Address: [address] [address] [facility] * Guarantor: ADRIENNE TOM Account Type Relation to Patient Date of Phone Billing Address Personal/Family [address] [place] [address] [facility] SELF PAY NO INSURANCE Member Subscriber Plan / Payer (Ef fective for All Dates) Name:Adrienne Tom Member ID:Not on file Relation to Subscriber:Not on file Name:ADRIENNE TOM Subscriber ID:Not on file Address: [address] [place] [id number] Payer ID:Not on file Group ID:Not on file Type:Self Pay Address: [place], [place] * Guarantor: ADRIENNE TOM Account Type Relation to Patient Date of Phone Billing Address Personal/Family [address] [place] [address] [facility] SELF PAY NO INSURANCE Member Subscriber Plan / Payer (Ef fective for All Dates) Name:Adrienne Tom Member ID:Not on file Relation to Subscriber:Not on file Name:ADRIENNE TOM Subscriber ID:Not on file Address: [address] [place] [address] Payer ID:Not on file Group ID:Not on file Type:Self Pay Address: [place], [place] * Guarantor: ADRIENNE TOM Account Type Relation to Patient Date of Phone Billing Address Personal/Family [address] [place] [address] [facility] SELF PAY NO INSURANCE Member Subscriber Plan / Payer (Ef fective for All Dates) Name:Adrienne Tom Member ID:Not on file Relation to Subscriber:Not on file Name:ADRIENNE TOM Subscriber ID:Not on file Address: [place] [address] Payer ID:Not on file Group ID:Not on file Type:Self Pay Address: [place], [place] Care Teams Supervisor Ditching Relationship Specialty Start Date End Date Bernice Mohan APRN-RUBEN [address] [place] [address] PCP - General Nurse Practitioner Family 06/29/21
[2025-01-21 15:34] VITALS: BP 104/79; PULSE 92; RESP 17; O2SAT 100
--- NOTE | 2025-01-21 16:07 | PC.NURSE ---
per EDP Zay, he does not need the 3 hour EKG and troponin prior to discharge
[2025-01-21 16:17] VITALS: BP 120/91; PULSE 85; RESP 15; O2SAT 100
== END 2025-01-21 16:22 | disposition home or self-care (01) ==
PROVIDERS: Emergency Provider Emergency Medicine; PCP Nurse Practitioner Family
DX: F13.239 Sedative, hypnotic or anxiolytic dependence with withdrawal, unspecified (principal); T42.4X6A Underdosing of benzodiazepines, initial encounter; R00.0 Tachycardia, unspecified; G40.909 Epilepsy, unspecified, not intractable, without status epilepticus; F41.9 Anxiety disorder, unspecified; F32.A Depression, unspecified; Z98.84 Bariatric surgery status; Z87.891 Personal history of nicotine dependence; Z90.710 Acquired absence of both cervix and uterus; Z90.49 Acquired absence of other specified parts of digestive tract; R94.31 Abnormal electrocardiogram [ECG] [EKG]
CPT/HCPCS: 36415; 71046; 71275; 80053; 83690; 84484; 85025; 85380; 85610; 85730; 93005; 96374; 99284; A9270; J2060; Q9967

== ENCOUNTER 2025-01-25 11:41 | Outpatient (CLI) | payer MEDICAID, SELFPAY ==
--- NOTE | ~2025-01-25 | XR_ITS ---
EXAM: [id number]_CR DATE: 01/25/2025 12:04 HISTORY: M54.2 - Cervicalgia . COMPARISON: 08/16/2021. FINDINGS: Craniocervical association and atlantoaxial joint are aligned. No prevertebral soft tissue swelling. Cervical straightening. Vertebral body heights are maintained. Multilevel degenerative dis c disease, mild at C3-4 and moderate at C5-6. Mild multilevel facet hypertrophy. Mild C2-C4 and moder ate C5-6 uncovertebral joint hypertrophy. IMPRESSION: Multilevel cervical degenerative disc disease, moderate at C5-6. Multilevel cervical face t arthropathy. Reviewed, dictated and finalized at location K. IMPRESSION: Multilevel cervical degenerative disc disease, moderate at C5-6. Mu ltilevel cervical facet arthropathy.
--- OUTSIDE RECORDS SUMMARY | 2025-01-25 13:13 | XMS_ITS | Continuity of Care Document ---
Author Organization [facility] Address [address] [place] [address] Phone Care Team Providers Care Death Surveys Coder Name Role Phone Rubio Bernardo MD Unavailable [...] Diagnoses Date Provider Providers Copied on Encounter [facility], [address], [place], [place], [id number], [place] tel:[phone] [facility] No Information Az Bergeron. [address], [facility] [place], [id number], [place]. tel:[phone] Referring Provider: Rubio Bernardo, [address], [place], [place], [id number]. tel:[phone] PREV VISIT, NEW, AGE 18-39 [facility], [address], [place], [place], [id number], [place] tel:[phone] [facility] Medicine PHysical (chief complaint) Encntr for general adult medical exam w/o abnormal findings Az Bergeron. [address], [address], [place], [place], [id number], [place]. tel:[phone] Referring Provider: Rubio Bernardo [address], [place], [place], [id number]. tel:[phone] Family History Family Member Type Diagnosis Age At Onset Mother Problem (finding) Depression Father Problem (finding) unknown Brother Problem (finding) Alive and well Payers Payer name Insurance type Covered constitution party ID Authoriza tion(s) No Information Social History [...] [address] [place], [place] [id number] Ordered: Referrals: Allopathic & Osteopathic Physicians : [...] to get enough air. Pt went to [place] 10 days ago but her above symptoms [...]
--- OUTSIDE RECORDS SUMMARY | 2025-01-25 13:13 | XMS_ITS | Clinical Summary ---
Author Organization [facility] [employer] Address [address] [place] [address] Care Team Providers Care Milking Machine Mechanic Name Role Phone Bernice Mohan RETAIL TIRE SALES MANAGER-NAIL TECHNICIAN TEACHER Primary Care Provider Source Comments [facility],non-owned Affiliates and Associated Physician Practices is amultiple site organization consisting of ambulatory clinics and hospital sitesin [place], [place], [place] and [place]. This disclosure is being madepursuant to the Care Everywhere program and may not contain all information available regarding this patient. Last updated 18.[facility] [employer] Allergies No known active allergies Medications * [...] on file Legal Sex Female 5:34 AM CRIMINAL JUSTICE PROGRAM DIRECTOR Gender Identity Not on file Sexual Orientation Not on file Last Filed Vital Signs Vital Sign Reading Time Taken Comments Blood Pressure 120/88 11/18/2023 11:09 AM CDT Pulse 78 10/10/2023 10:34 AM CRIMINAL JUSTICE PROGRAM DIRECTOR Temperature 36.4 C (97.6 F) 10/10/2023 10:00 AM CRIMINAL JUSTICE PROGRAM DIRECTOR Respiratory Rate 16 10/10/2023 10:34 AM CRIMINAL JUSTICE PROGRAM DIRECTOR Oxygen Saturation 99% 10/10/2023 10:34 AM CRIMINAL JUSTICE PROGRAM DIRECTOR Inhaled Oxygen Concentration - - Weight 50.8 [...] patient's age to complete this topic Insurance [facility] Care Address: [address] [address] [facility] [employer] [facility] * Guarantor: ADRIENNE TOM Account Type Relation to Patient Date of Phone Billing Address Personal/Family [address] [place] [address] [facility] SELF PAY NO INSURANCE Member Subscriber Plan / Payer (Ef fective for All Dates) Name:Adrienne Tom Member ID:Not on file Relation to Subscriber:Not on file Name:ADRIENNE TOM Subscriber ID:Not on file Address: [address] [place] [address] Payer ID:Not on file Group ID:Not on file Type:Self Pay Address: [place], [place] * Guarantor: ADRIENNE TOM Account Type Relation to Patient Date of Phone Billing Address Personal/Family [address] [place] [address] [facility] SELF PAY NO INSURANCE Member Subscriber Plan / Payer (Ef fective for All Dates) Name:Adrienne Tom Member ID:Not on file Relation to Subscriber:Not on file Name:ADRIENNE TOM Subscriber ID:Not on file Address: [address] [place] [address] Payer ID:Not on file Group ID:Not on file Type:Self Pay Address: [place], [place] * Guarantor: ARDIENNE TOM Account Type Relation to Patient Date of Phone Billing Address Personal/Family [address] [place] [address] [facility] SELF PAY NO INSURANCE Member Subscriber Plan / Payer (Ef fective for All Dates) Name:Adrienne Tom Member ID:Not on file Relation to Subscriber:Not on file Name:ADRIENNE TOM Subscriber ID:Not on file Address: [place] [address] Payer ID:Not on file Group ID:Not on file Type:Self Pay Address: [place], [place] Care Teams Milking Machine Mechanic Relationship Specialty Start Date End Date Bernice Mohan APRN-RUBEN [address] [place] [address] PCP - General Nurse Practitioner Family 06/29/21
--- OUTSIDE RECORDS SUMMARY | 2025-01-25 13:13 | XMS_ITS | CONTINUITY OF CARE DOCUMENT ---
Author Name kaiser saab Address Unknown Organization [facility] Address [address] [place] [address] [address] [place] [address] Phone [phone] Care Team Providers Care Vapor Coater Name Role Phone Ross DOTY, Cyrus Unavailable ELVIA MONSALVE MD Unavailable [phone] ELVIA MONSALVE MD Unavailable [phone] PROBLEMS Condition Status Date Provider Notes IRON DEFICIENCY active Cyrus Hawkins MD Vitamin D deficiency active Cyrus Cornell Chest pain-type to be determined active Jerald Hawkins MD Obesity active Cyrsu Hawkins MD Tobacco use, quit active Cyrus Hawkins MD Panic disorder active Cyrus Hawkins MD Epilepsy active Cyrus Hawkins MD Dyspnea on exertion active Cyrus Hawkins MD ? Sleep apnea active Cyrus Hawkins MD Palpitations; active Cyrus Hawkins MD ENCOUNTERS Date Type Provider Location Encounter Diag nosis - In-person encounter Office Visit Cyrus Hawkins MD [place] [facility] Chest pain-type to be determinedObesityTobacco use, [...] [lb_av] Jesus collins height E&M 63 [in_i] Jessu collins ALLERGIES No Known Drug Allergies RESULTS [...] iron binding capacity, unsaturated 243 ug/dL [employer] 178-444 1804/09/0 5 iron binding capacity, total 325 ug/dL [employer] 226-646 9015/09/0 5 free thyroxine index 1.4 [employer] 1.2-4.9 [...] 0-149 5 cholesterol, serum 165 mg/dL [employer] [phone]/09/0 5 basophil count, absolute 0.0 x10E3/uL [employer] [...] Estab. 5 platelet count 294 X10E3/UL [employer] [phone]/09/0 5 red blood cell distribution width 13.1 [...] 3.5-5.2 5 sodium, serum 143 mmol/L [employer] 804-395 9071/09/0 5 urea nitrogen/creatinine ratio, serum 10 [employer] [...] DAY 5 Cyrus Hawkins MD VITAMIN D3 77928 UNIT ORAL TABLET active TAKE ONE TAB [...] Payer name Policy type / Coverage type Mode red democrat ID LI MEDICAID Medicaid [id number] [employer] Medicaid [id number] ADVANCE DIRECTIVES Name Date DISCUSSED - NO [...] TOTAL IRON BINDING CAPACITY FERRITIN DLCO - 11207 FRC - 68758 FVC - 70798 STR - Routine Complete Echo Mobile Cardiac Tele CXR- PA/Lat HISTORY OF PROCEDURES Procedure Date Procedure Name Provider Procedure Notes S tatus Event Monitor [facility] ed EKG Cyrus Hawkins MD complete d
--- OUTSIDE RECORDS SUMMARY | 2025-01-25 13:13 | XMS_ITS | Clinical Summary ---
Author Organization [email or web address] [facility] Address [address] [place] [address] Care Team Providers Care Field Account Director Name Role Phone Dennys Mohanandrey Gaines HOTEL SECURITY OFFICER Primary Care Provider Allergies No known active [...] place to sleep or slept in a detention (including now)? Patient refused 03/05/2023 Feeling Safe [...] on file Legal Sex Female 2:49 PM INSTRUMENT MAN Gender Identity Not on file Sexual Orientation [...] Advance Directives For more information, please contact: [phone] * Full Code (Latest Code Status on File) Date Activated Date Inactivated Comments 03/05/2023 7:32 AM 03/07/2023 9:35 PM Care Teams Field Account Director Relationship Specialty Start Date End Date Bernice Mohan FNP [address] [place] [address] PCP - General Nurse Practitioner Family 09/04/21
--- OUTSIDE RECORDS SUMMARY | 2025-01-25 13:13 | XMS_ITS | Encounter Summary ---
Author Organization [facility] Address [address] [place] [address] Care Team Providers Care Engineer Specialist Name Role Phone Dennys Mohanandrey Gaines HOG TENDER Primary Care Provider Reason for Visit * Reason Onset Date Comments Ulcerative Colitis 03/06/2023 LEFT SECURE E [facility] CHAT/ [facility] Encounter Details Date Type Department Care Team (Late st Contact Info) Description 03/06/2023 Telephone [facility] Admitting [address] [place] [address] [place] [address] [facility] [address] [place] [address] Ulcerative Colitis (LEFT SECURE EPIC [...] place to sleep or slept in a fdc (including now)? 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
== END 2025-01-25 11:42 | disposition home or self-care (01) ==
LOC: CHSIMG 11:42
PROVIDERS: PCP Nurse Practitioner Family; Visit Provider Nurse Practitioner Family
DX: M50.322 Other cervical disc degeneration at C5-C6 level (principal); M12.88 Other specific arthropathies, not elsewhere classified, other specified site
CPT/HCPCS: 72040

== ENCOUNTER 2025-01-28 15:31 | Outpatient (CLI) | payer MEDICAID, SELFPAY ==
--- NOTE | ~2025-01-28 | XR_ITS ---
Lumbosacral Spine: AP and lateral views Clinical History: Pain Findings: The normal lordotic curve is maintained. The vertebral bodies and posterior elements are i ntact. The intervertebral disc spaces are preserved. Minimal facet arthropathy present. The sacroili ac joints are normally outlined. Impression: Minimal facet arthropathy. Reviewed, dictated and finalized at location . Impression: Minimal facet arthropathy.
--- NOTE | ~2025-01-28 | XR_ITS ---
AP view of the pelvis and AP and lateral views of the bilateral hips Clinical history: Pain Findings: No acute fracture or dislocation is seen. Osseous alignment is anatomic. Bilateral hip and SI joint spaces are preserved. Soft tissues are unremarkable. Impression: No significant abnormality is seen. Reviewed, dictated and finalized at location . Impression: No significant abnormality is seen.
--- NOTE | ~2025-01-28 | XR_ITS ---
Thoracic spine: Clinical Indication: Back pain AP and lateral views were performed. No fracture is seen. There is normal alignment of the vertebrae. The intervertebral disc spaces appe ar normal. Paravertebral soft tissues appear normal. Impression: No significant abnormalities noted. Reviewed, dictated and finalized at [facility]. Impression: No significant abnormalities noted.
--- OUTSIDE RECORDS SUMMARY | 2025-01-28 15:56 | XMS_ITS | Data Portability ---
Author Organization [facility] Address [address] [place] [address] Assessment No assessment recorded. Plan of Treatment Reminders Order Date Submit Date Provider Last Modified By Organization Details Last Modified Time Details Appointments None recorded . Lab prolacti n, serum 2020 021 [facility] (Lab), [address], [place], [address], 1 06:09:04 TSH, serum or plasma 2020 021 [facility] (Lab), [address], [place], [address], 1 06:09:03 17-hydro xyproges terone, QN, serum 2019 020 tryan28 [facility] ([facility]), [address] , [address] [address], [place], [address], 0 15:14:45 dhea-sul fate, serum 2019 020 [email or web address] [facility] ([facility]), [address] , [address] [address], [place], [address], 0 15:14:45 estradio l, serum 2019 020 [email or web address] [facility] ([facility]), [address], [place], [address], 0 15:14:45 FSH (follicl e-stimul ating hormone) , serum 2019 tryan28 [facility] ([facility]), [address] [facility] [address], [place], [address], 0 15:14:45 HbA1c (hemoglo bin A1c), blood 2019 tryan28 [facility] ([facility]), [address] [facility] [address], [place], [address], 0 15:14:46 lh (luteini zing hormone) , serum 2019 tryan28 [facility] ([facility]), [address] [facility] [address], [place], [address], 0 15:14:46 progeste ariadne, serum 2019 tryan28 [facility] ([facility]), [address] [facility] [address], [place], [address], 0 15:14:46 prolacti n, serum 2019 tryan28 [facility] ([facility]), [address] [facility] [address], [place], [address], 0 15:14:46 shbg (sex hormone- binding globulin ), serum 2019 tryan28 [facility] ([facility]), [address] [facility] [address], [place], [address], 0 15:14:46 testoste ariadne, total, serum 2019 020 [email or web address] [facility]), [address] [facility] [address] , [address], [place], [address], 0 15:14:46 TSH, serum or plasma 2019 020 [email or web address] [facility] ([facility]), [address] [facility] [address] , [address], [place], [address], 0 15:14:47 Referral urogynec ologist referral [address] [facility], [address] [facility] [address], [place], [address], 4 14:13:15 urogynec ologist referral - Cystocel ePlease contact this patient to schedule an appointm entAttac hed are the patients demograp hics and most recent office visit notes.If you have any question s, please contact me at [phone].Th ank you,Addy delatorre, Referral 's 2021 022 shahla Valadez [facility], [address] [place] [address], [address], 2 15:39:16 Procedures None recorded . Surgeries None recorded . Imaging MAMMO, diagnost ic, digital, bilatera l - right nipple discharg e, left breast with lumps felt in outer quadrant 2022 023 [facility] [address], [address], [place], [address], 4 05:01:28 US, breast, bilatera l, complete 2022 023 [facility], [address], [address], [place], [address], 4 05:01:33 MAMMO, diagnost ic, digital, bilatera l - Right nipple discharg e and Left breast lump @ 1 o'clock. 2020 021 [facility] [place] , [address], [address], [place], [address], 1 14:24:34 Medication Orders metronid azole 0.75 % (37.5 mg/5 gram) vaginal gel 2022 023 [id number], [address] [facility], [place], [place], [id number], 3 11:42:41 estradio l 0.01% (0.1 mg/gram) vaginal cream 2022 023 [facility] #[id number], [address] [facility], [place], [place], [id number], 3 11:42:42 estradio l 0.025 mg/24 hr weekly transder mal patch 2022 023 [facility][id number], [address] [facility], [place], [place], [id number], 3 11:43:30 Patient TargetsNo targets recorded. Patient InstructionsNo instructions recorded. Reason for Referral Urogynecologist Referral for Cystocele Cystocele CystocelePlease contact this patient to schedule an appointmentAttached are the patients demographics and most recent office visit notes.If you have any questions, please contact me at [phone].Thank you,Karissa Referral's Referring Physician: Pamela Walters, [employer], Encounter Date: 04/25/2022 Urogynecologist Referral for Cystocele Referring Physician: Pamela Walters [employer], Encounter Date: 08/01/2023 Results Created Date Observation Date Name Description Value Unit Range Abnormal Flag Note LastModifiedBy Organization Detail LastModifiedTime 05/22/20 21 05/22/2021 TSH, REFLE X FREE T4 TSH 4.03 uIU/m L 0.30-5 .33 Not Available [facility] (Lab) [address], [place], [address], 05/23/2021 06:09:03 05/22/20 21 05/22/2021 PROLA CTIN prolactin, total 13.80 NG/mL 4.79-2 3.30 This assay was perfo rmed using [employer] ratio n reage nts and test kits. Value s obtai gopi with other assay metho ds or kits canno t be used inter higuera eably . Not Available [facility] (Lab) [address], [place], [address], 05/23/2021 06:09:04 08/01/20 23 08/01/2023 VAGIN ITIS/ VAGIN OSIS, DNA PROBE janice sp. detection, direct probe Negati ve negati ve Not Available [facility] (Lab) [address] [facility] [address], [place], [address], 08/03/2023 07:11:23 08/01/20 23 08/01/2023 VAGIN ITIS/ VAGIN OSIS, DNA PROBE gardnerella vag. detection, direct probe Negati ve negati ve Not Available [facility] (Lab) [address] [place], [address], 08/03/2023 07:11:23 08/01/20 23 08/01/2023 VAGIN ITIS/ VAGIN OSIS, DNA PROBE trichomonas vag. detection, direct probe Negati ve negati ve Not Available [facility] (Lab) [address] [place], [address], 08/03/2023 07:11:23 08/01/20 23 08/01/2023 CT/GC AND TRICH OMONA S VAGIN JACINTO (RRNA ), SWAB chlamydia trachomatis, PCR Negati ve negati ve Not Available [facility] (Lab) [address] [facility], [place], [address], 08/03/2023 07:11:23 08/01/20 23 08/01/2023 CT/GC AND TRICH OMONA S VAGIN JACINTO (RRNA ), SWAB neisseria gonorrhoeae, PCR Negati ve negati ve Not Available [facility] (Lab) [address] [facility], [place], [address], 08/03/2023 07:11:23 08/01/20 23 08/01/2023 CT/GC AND TRICH OMONA S VAGIN JACINTO (RRNA ), SWAB trichomonas vaginalis ribosomal RNA (rrna) Negati ve negati ve Not Available [facility] (Lab) [address] [facility], [place], [address], 08/03/2023 07:11:23 08/01/20 23 08/01/2023 CULTU RE: URINE result report SEE RESULT S BELOW Test: Cultu re: Urine Speci men Sourc e: Urine Voide d Speci men Type: Urine Speci men Date: 08/01 11:18 AM Resul t Date: 08/03 6:06 AM Resul t Statu s: Final resul t Abnor mal: No Resul ting Lab: [facility] [address] [facility] [address] Tel: CULTU RE ----- ----- ----- --- No growt h in 1 day (dete ction level of 10,00 0 colon ies / ml.) Not Available [facility] (Lab) [address] [facility], [place], [address], 08/03/2023 07:11:24 06/06/20 21 06/06/2021 MAMMO , diagn ostic , digit al, bilat eral No observ ation record ed. [facility] [address], [place], [address], 06/06/2021 16:12:33 06/08/20 21 XR, hand No observ ation record ed. [email or web address] Not Available 2020 18:35:41 Result Notes Documentation Provider Name and Address Organization Details Recorded Time Xr, Hand : from 06/06/21: ganglion cyst found-refer Orthopedic surgeon? Jeanne Sibley [facility], [facility] 06/28/2021 18:35:41 Problems Name Problem SNOMED Code Status Onset Date Resolution Date Notes Provider Name and Address Organization Details Recorded Time Routine antenata l care Completed 201405/19/2021 Supervis ion of other normal pregnanc y;Practi ce ID: 0001 Ela Leonel [facility] 11:42:52 Poor growth affectin g manageme nt 569958996 Completed 201405/19/2021 GROWTH POOR SGA;Prac rayne ID: 0001 Ela Doddan [facility] 11:44:07 Oligohyd ramnios with antenata l problem [id number] Completed 201405/19/2021 Oligohyd ramnios, antepart um;Pract ice ID: 0001 Ela Leonel [facility] 11:42:58 Delivery normal 29998908 Completed 201405/19/2021 Normal delivery ;Practic e ID: 0001 Ela Doddan [facility] 11:44:12 Single live from singleto n pregnanc y 948699607 Completed 201405/19/2021 Mother with single liveborn ;Practic e ID: 0001 Ela Leonel [facility] 11:42:56 Postpart um care Completed 201405/19/2021 Postpart um follow-u p;Practi ce ID: 0001 Ela Castaneda [facility] 11:42:[address] Concept Completed 201505/19/2021 Encntr for hide and skin colerer exam (general ) (routine ) w/o abn findings ;Practic e ID: 0001 Ela keenan [facility] 11:44:05 Contrace ptive sheath status 708969433 Completed 201605/19/2021 Encounte r for initial prescrip tion of other contrace ptives;P ractice ID: 0001 Ela keenan, [facility] 11:43:57 Maternal care for diminish ed movement s Completed 201209/03/2013 Decrease d movement s, affectin g manageme nt of mother, antepart um conditio n or complica tion;Rec orded Elsewher e: No Locat ion: [facility] S ource: EHR Title Camera Operator landry: N Lola ce ID: 0001 Dave lable Time: 08:30:00 AM Ela Castaneda [facility] 11:43:00 Benign essentia l hyperten wang 9158347 Completed 201405/19/2021 Hyperten wang, Benign;R ecorded Elsewher e: No Locat ion: [facility] S ource: EHR Title Camera Operator landry: Iveth Davila ce ID: 0001 Dave lable Time: 01:45:00 PM Ela Castaneda [facility] 11:42:40 Routine antenata l care Completed 201209/03/2013 Supervis ion of other normal pregnanc y;Record ed Elsewher e: No Locat ion: [facility] S ource: EHR Title Camera Operator landry: N Maoti ce ID: 0001 Dave lable Time: 11:15:00 AM Ela Castaneda [facility] 11:42:52 Amenorrh ea 55497661 Completed 201205/19/2021 AMENORRH EA;Pract ice ID: 0001 Ela keenan, [facility] 11:42:53 Threaten ed miscarri age 29241138 Completed 201205/19/2021 Threaten ed , antepart um;Pract ice ID: 0001 Ela keenan, [facility] 11:44:15 Speciali zed medical examinat ion Completed 201205/19/2021 Routine gynecolo gical examinat ion;Prac rayne ID: 0001 Ela keenan, [facility] 11:44:14 Pregnanc y test positive 738037621 Completed 201205/19/2021 Positive Pregnanc y Test;Pra ctice ID: 0001 Ela keenan, [facility] 11:43:58 Ultrason ography Completed 201205/19/2021 Antenata l screenin g for malforma tion using ultrason ics;Prac rayne ID: 0001 Ela keenan, [facility] 11:42:55 Antenata l screenin g Completed 201205/19/2021 Antenata l screenin g for malforma tion using ultrason ics;Prac rayne ID: 0001 Ela keenan, [facility] 11:43:55 Congenit al malforma tion 501483064 Completed 201205/19/2021 Antenata l screenin g for malforma tion using ultrason ics;Prac rayne ID: 0001 Ela keenan, [facility] 11:44:02 Abdomina l pain 76909001 Completed 201205/19/2021 Abdomina l pain, unspecif ied site;Pra ctice ID: 0001 Ela keenan, [facility] 11:44:49 Excessiv e growth affectin g manageme nt of mother 69722743 Completed 201205/19/2021 GROWTH LARGE LGA;Prac rayne ID: 0001 Ela keenan, [facility] 11:43:53 Known OR suspecte d abnormal ity affectin g manageme nt of mother Completed 201205/19/2021 Unspecif ied suspecte d abnormal ity, affectin g manageme nt of mother, unspecif ied as to episode of care;Pra ctice ID: 0001 Ela keenan, [facility] 11:44:17 Maternal care for diminish ed movement s Completed 201205/19/2021 Decrease d movement s, affectin g manageme nt of mother, antepart um conditio n or complica tion;Pra ctice ID: 0001 Ela keenan, [facility] 11:43:00 Labor and delivery complica ed by heart rate anomaly 421442499 Completed 201205/19/2021 HEART RATE NON REASSURI NG;Pract ice ID: 0001 Ela keenan, [facility] 11:44:00 Adult health examinat ion Completed 201305/19/2021 Routine general medical examinat ion at a health care facility ;Practic e ID: 0001 Ela keenan, [facility] 11:44:01 Obesity 669374386 Completed 201305/19/2021 Obesity, unspecif ied;Prac rayne ID: 0001 Ela keenan, [facility] 11:44:09 Uterine size for dates discrepa ncy 567244075 Completed 201305/19/2021 UTERINE SIZE VASILIY-ANTE PAR;Prac rayne ID: 0001 Ela keenan [facility] 11:44:10 Primigra junior 705633374 Completed 201305/19/2021 Supervis ion of normal first pregnanc y;Practi ce ID: 0001 Ela keenan [facility] 11:42:[address] Concept Completed 201505/19/2021 Encntr for general adult medical exam w/o abnormal findings ;Recorde d Elsewher e: No Locat ion: [facility] S ource: EHR Title Camera Operator landry: N Practi ce ID: 0001 Dave lable Time: 01:00:00 PM Ela keenan [facility] 11:44:04 Nausea and vomiting 34229333 Completed 201209/03/2013 Nausea And Vomiting ;Recorde d Elsewher e: No Locat ion: [facility] S ource: EHR Title Camera Operator landry: N Practi ce ID: 0001 Dave lable Time: 11:15:00 AM Not Available [facility] 0 21:20:13 Routine antenata l care Completed 201209/03/2013 Supervis ion of other normal pregnanc y;Record ed Elsewher e: No Locat ion: [facility] S ource: EHR Title Camera Operator landry: N Practi ce ID: 0001 Dave lable Time: 02:00:00 PM Ela keenan [facility] 11:42:52 Problem Notes None recorded. Procedures Surgical History Date Name Laterality Status Provider Name and Address Organization Details Recorded Time 022 Bariatric Surgery completed Maritza Galo [facility] 04/25/2022 11:10:18 021 Total Hysterectomy completed Maritza Galo [facility] 04/25/2022 11:10:18 021 hysterectomy completed Nadira Blank [facility] 05/31/2021 16:44:59 016 Date of Last Pap Smear completed Ela Castaneda [facility] 05/19/2021 11:45:43 012 [facility] 11:48:59 Imaging Results None recorded. [...] Prescrib ed Elsewher e: No Locat ion: [facility] odify By: tad valenzuela DateTime : 01/12/20 [...] Prescrib ed Elsewher e: No Locat ion: [facility] odify By: mahi granados DateTime : 01/15/20 [...] Prescrib ed Elsewher e: Yes Loca tion: [facility]ify By: jlperica harrell Enco unter DateTime [...] Prescrib ed Elsewher e: No Locat ion: [facility] odify By: anali Diego ncounter DateTime : [...] Prescrib ed Elsewher e: No Locat ion: [facility] odify By: rosalino merchantunter DateTime : 05/17/20 [...] Prescrib ed Elsewher e: No Locat ion: [facility] odify By: cihkis tz Encou nter DateTime : 09/11/19 17 [...] Prescrib ed Valenciaher e: No Locat ion: [facility] odify By: jessica valenzuela DateTime : 01/15/20 13 11:15:00 AM Not Available Not Available Not Available Stimulant Laxative Plus 8.6 mg-50 mg tablet active Not Available Not Available Not Available Vitals Date Recorded Body height Body mass index (BMI) Body weight Systolic blood pressure Diastolic blood pressure Provider Name and Address Organization Details Last Updated DateTime 04/25/2022 160.02 cm 27.3 kg/m2 23141.22 g 117 mm[Hg] 76 mm[Hg] Maritza Galo [facility] 2 11:10:07 Date Recorded Body height Body mass index (BMI) Body weight Systolic blood pressure Diastolic blood pressure Provider Name and Address Organization Details Last Updated DateTime 04/27/2020 160.02 cm 36.5 kg/m2 89995.03 g 122 mm[Hg] 85 mm[Hg] Jazz Mai [facility] 0 12:05:17 Date Recorded Body height Body mass index (BMI) Body weight Systolic blood pressure Diastolic blood pressure Systolic blood pressure Diastolic blood pressure Provider Name and Address Organization Details Last Updated DateTime 1 160.02 cm 38.1 kg/m2 27439.3 6 g 157 mm[Hg] 100 mm[Hg] 143 mm[Hg] 95 mm[Hg] Ela Castaneda [facility] 1 12:25:46 Date Recorded Body height Body mass index (BMI) Body weight Systolic blood pressure Diastolic blood pressure Provider Name and Address Organization Details Last Updated DateTime 05/31/2021 160.02 cm 38.3 kg/m2 34946.95 g 126 mm[Hg] 90 mm[Hg] Nadira Blank [facility] 1 16:42:34 Date Recorded Body height Body mass index (BMI) Body weight Systolic blood pressure Diastolic blood pressure Provider Name and Address Organization Details Last Updated DateTime 08/01/2023 160.02 cm 19.4 kg/m2 15625.01 g 121 mm[Hg] 83 mm[Hg] Patricia Velez [facility] 3 11:14:16 Social History Question Answer Notes LastModified by Organizat ion Details LastModified Time Tobacco Smoking Status Never Smoker Patricia Velez null, [facility] 08/01/2023 11:12:28 Are You Blind Or [...] Or The Highest Degree You Have Received? [id number] Information not available 08/01/2023 Are There Any [...] anxious, or unable to sleep at night)? [id number] Information not available 08/01/2023 Family History Relationship Description Onset Age of this Age Resolved Age Notes LastModified by Organization Details LastModified Time Mother Diabetes mellitus [email or web address] Not available 02/2022 11:10:10 Mother Diabetes mellitus [email or web address] Not available 2022 10:59:47 Maternal Grandmother Diabetes mellitus [email or web address] Not available 02/2022 11:10:10 Maternal Grandmother Diabetes mellitus [email or web address] Not available 2022 10:59:47 Maternal Grandfather Diabetes mellitus [email or web address] Not available 02/2022 11:10:10 Maternal Grandfather Diabetes mellitus [email or web address] Not available 2022 10:59:47 Medical History Condition [...] SNOMED-CT Code Diagnosis ICD10 Code Diagnosis Note [id number] [facility] [address] [address] 04/27/2020 11:44:58 04/27/2020 14:57:34 Secondary oligomenorrhea 68204493 N91.4 L70.9 L68.0 UNBILLABLE VISIT TODAY Recommende [...] counseling and review of plan of care. [id number] [facility] [address] [address] 05/22/2021 12:19:42 05/24/2021 22:07:37 Mass of left breast 9421909750 6019393 N63.20 N64.52 Diagnostic susana and u/s ordered. If nl will rtc in 6 weeks. If abnormal imaging will schedule with specialist radha If nl imaging but lump persists at 6 week f/u will need to see specialist . I did order bilateral mamm and labs d/t nipple discharge. Discharge from right nipple [id number] 8725574 N64.52 Abdominal pain 06745150 R10.9 Hyst done in August. Pt will fill out records request from previous provider. I would like her to have a MD consult to review operative record and discuss. [id number] Eddie Manjarrez MD [place] [address] [address] 05/31/2021 16:21:45 06/01/2021 11:10:52 Pain in pelvis 83828427 R10.2 this patient is a 30-year-ol d [...] ce. More than 50% was counseling . [id number] ALFRED Hyatt [place] [address] [address] 04/25/2022 10:27:24 04/27/2022 17:19:54 Pain in pelvis 54208036 R10.2 Suspect cystocele and rectocele given exam [...] of care. Herniation of rectum into vagina 132763272 N81.6 Dyspareunia 34486682 N94 .10 History of endometriosis 9514033332 0938370 Z87.42 Cystocele 572086374 N81. 10 [id number] ALFRED Hyatt [place] [address] [address] 08/01/2023 10:58:04 08/01/2023 12:13:21 Vaginitis 71198686 N76.0 vaginitis/ STI panel sentsuspec t BV - rx sentvulvar care guidelines discussed Menopausal flushing 1984 86889 N95.1 Discussed management optionsdes ires to restart estradiol patches - denies any contraindi cationsr/b /a reviewed - rx sentnotify PCP/neurol ogy, she is aware of potential decrease in lamotrigin e effectiven ess and need to discuss this with her care team Vaginal irritation 43887 6004 N89.8 recommende d estradiol creamr/b/a reviewedrx sent, use 2-3 times per weekveg based moisturize r routine discussedm ed check in 3 months needed Vaginal discharge 462657 006 N89.8 Venereal d isease screening 907119226 Z11.3 Screening for malignant neoplasm of breast 671933533 Z12.39 Herniation of rectum into vagina 410470094 N81.6 Cystocele 811998097 N81. 10 Recommende d PFPTshe would like referral to new urogyne for second opinion - referral placed Discharge from nipple 54 732022 N64.52 warrants updated imaging, orderedrec ommended f/u with previous breast specialist once imaging completepa tient to notify the office with any questions or concerns Time spent in visit is a total of 55 mins with at least 50% of visit consisting of counseling and review of plan of care. Breast lump 48902704 N63 .0 Health Concerns Section Related Observation LastModified by Organization Detai ls LastModified Time None Recorded Concern Status LastModified by Organization Details LastModified Time None Recorded Advance Directives Directive None Recorded Payers Insurance Date Sequence Insurance Name Policy Number Policy Nicholas Covered Member ID Nicholas Member ID Guarantor Name 05/31/2021 SLIDING FEE SCHEDULE - DISCOUNT Adrienne Tom 04/17/2022 1 [place] [employer] [place] [employer] Adrienne Tom [id number] Adrienne Tom 07/31/2024 1 [facility] (MEDICAID HMO) [id number] Adrienne Tom [id number] Adrienne Tom Notes Date Note Type Note [...] Neg vag d/c, odor, itching. Jennifer Newell, [facility]- [address], [place], [address], [place] [facility] 05/13/2020 16:46:50 1 text/html Hyst with Dr Castañeda @ [facility] in August. Has not followed up because it ended on bad terms.Pain improved for 5 months but has now returned.Constant aching and throbbing in lower abd and lower back.Right nipple discharge off and on for 10 monthsLeft breast lump x 6 weeks Jeanne keenan, [facility] 05/29/2021 01:58:24 1 text/html this patient [...] floor therapy. We spent over 15 minutes pekr-hi-grom. More than 50% was counseling. Eddie Manjarrez MD [address], [place], [address], [facility] 05/31/2021 18:28:49 2 text/html 31yo [id number] for evaluation of possible prolapseS/p TLH, BSO [...] but has not ALFRED Hyatt [address], [place], [address], [facility] 04/30/2022 14:47:38 3 text/html 31yo [id number] for evaluation of multiple symptomsS/p TL, BSO 09/04/2020 for pelvic pain/endometriosis at outside [...] in 2011 ALFRED Hyatt [address] Khan, [place], [address], [facility] 08/01/2023 12:10:11 OBGyn Episode Ob Episode Information Episode Created Date Number of Fetuses Patient Bloodtype Patient rh Status Prepregnancy Weight lbs Domestic Partner Domestic Partner Phone Father Name Pole Truck Driver Status 04/27/20 1 CLOSED Fetus Data First Name Last [...] Domestic Partner Domestic Partner Phone Father Name Pole Truck Driver Status 04/27/20 1 CLOSED Fetus Data First Name Last [...] Domestic Partner Domestic Partner Phone Father Name Pole Truck Driver Status 09/09/20 20 1 CLOSED Fetus Data First Name [...]
--- OUTSIDE RECORDS SUMMARY | 2025-01-28 15:56 | XMS_ITS | Clinical Summary ---
Author Organization [employer] [facility] Address [address] [place] [address] Care Team Providers Care Clinical Trials Nurse Name Role Phone Dennys Mohanandrey Gaines AUTOMATIC GLOVE TURNER AND FORMER Primary Care Provider [phone] Allergies No known active allergies Medications busPIRone [...] place to sleep or slept in a senior care (including now)? 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
--- OUTSIDE RECORDS SUMMARY | 2025-01-28 15:56 | XMS_ITS | Clinical Summary ---
Author Organization [facility] Address [address] [facility] [place] [address] Care Team Providers Care Peritoneal Dialysis Registered Nurse Name Role Phone Bernice Mohan ENTRY LEVEL AUTOMOTIVE TECHNICIAN-TEXTILE MACHINERY INSTRUCTOR Primary Care Provider Source Comments [facility],non-owned Affiliates and Associated Physician Practices is amultiple site organization consisting of ambulatory clinics and hospital sitesin [place], [place], [place] and [place]. This disclosure is being madepursuant to the Care Everywhere program and may not contain all information available regarding this patient. Last updated 18.[facility] Allergies No known active allergies Medications * [...] on file Legal Sex Female 5:34 AM BUS OR TRUCK GARAGE MECHANIC Gender Identity Not on file Sexual Orientation Not on file Last Filed Vital Signs Vital Sign Reading Time Taken Comments Blood Pressure 120/88 11/18/2023 11:09 AM CDT Pulse 78 10/10/2023 10:34 AM BUS OR TRUCK GARAGE MECHANIC Temperature 36.4 C (97.6 F) 10/10/2023 10:00 AM BUS OR TRUCK GARAGE MECHANIC Respiratory Rate 16 10/10/2023 10:34 AM BUS OR TRUCK GARAGE MECHANIC Oxygen Saturation 99% 10/10/2023 10:34 AM BUS OR TRUCK GARAGE MECHANIC Inhaled Oxygen Concentration - - Weight 50.8 [...] patient's age to complete this topic Insurance [facility] Care Address: [address] [address] [facility] [employer] [employer] [facility] * Guarantor: ADRIENNE TOM Account Type Relation to Patient Date of Phone Billing Address Personal/Family [address] [place] [address] [facility] SELF PAY NO INSURANCE Member Subscriber Plan / Payer (Ef fective for All Dates) Name:Adrienne Tom Member ID:Not on file Relation to Subscriber:Not on file Name:ADRIENNE TOM Subscriber ID:Not on file Address: [address] [place] [address] Payer ID:Not on file Group ID:Not on file Type:Self Pay Address: [place], [place] * Guarantor: ADRIENNE TOM Account Type Relation to Patient Date of Phone Billing Address Personal/Family [address] [place] [address] [facility] SELF PAY NO INSURANCE Member Subscriber Plan / Payer (Ef fective for All Dates) Name:Adrienne Tom Member ID:Not on file Relation to Subscriber:Not on file Name:ADRIENNE TOM Subscriber ID:Not on file Address: [address] [place] [address] Payer ID:Not on file Group ID:Not on file Type:Self Pay Address: [place], [place] * Guarantor: ADRIENNE TOM Account Type Relation to Patient Date of Phone Billing Address Personal/Family [address] [place] [place] [address] [facility] SELF PAY NO INSURANCE Member Subscriber Plan / Payer (Ef fective for All Dates) Name:Adrienne Tom Member ID:Not on file Relation to Subscriber:Not on file Name:ADRIENNE TOM Subscriber ID:Not on file Address: [place] [address] Payer ID:Not on file Group ID:Not on file Type:Self Pay Address: [place], [place] Care Teams Peritoneal Dialysis Registered Nurse Relationship Specialty Start Date End Date Bernice Mohan APRN-RUBEN [address] [place] [address] PCP - General Nurse Practitioner Family 06/29/21
--- OUTSIDE RECORDS SUMMARY | 2025-01-28 15:56 | XMS_ITS ---
Author Organization [facility] Address [address] [place] [address] Care Team Providers Care Mold Bunch Trimmer Name Role Phone [facility] Unavailable [phone] REASON FOR VISIT Prescription Refill Encounters Encounter Location Date Provider Diagnosis [facility] [address] [place] [address] 08/31/2024 [facility] Plan Of Treatment No Information Progress Notes * Aspen BOWLINGOB: 9 (34 yo F)Acc No.[id number]:08/31/2024 IMPORT Patient: Adrienne MENDOZA Provider: Antonino ELLIS :1990 A ge:33 Y S ex:Female Date:08/31/2024 Phone: Address:[address] [facility] Subjective: * Chief Complaints: * 1 . Prescription Refill. * Medical History: Objective: * Vitals: Assessment: Plan: * Treatment: * Billing Information: * Visit Code: * Procedure Codes: * Electronic signature of [facility] on 01/28/2025 at 04:55 PM EDT Sign off status: Pending * Provider: Antonino DELGADO [place] Date: 0 08/31/2024 Generated for Bryant burgos/Fapakog/eTransmitting on: 0 01/28/2025 04:55 PM EDT
--- OUTSIDE RECORDS SUMMARY | 2025-01-28 15:56 | XMS_ITS | Data Portability ---
Author Organization [facility] Address [address] [place] [address] Care Team Providers Care Csw Name Role Phone ZOYA JAMI Primary Care Provider [phone] RAMON MCGUIRE Urologist Assessment No assessment recorded. [...] Modified By Organization Details Last Modified Time 11/27/[id number] Impression is th at the patient has [...] Address Organization Details Recorded Time Ureteric stone 46680396 Active 023 [place] [address] [place] [address], [address] , [facility] 3 16:47:36 Problem Notes None recorded. Procedures Surgical History Date Name Laterality Status Provider Name and Address Organization Details Recorded Time 2021 esophagogastroduodenoscopy completed Chris Ramirez [facility] 3 17:02:05 cholecystectomy completed Ny Ramirez [facility] 3 16:56:51 laparoscopic sleeve gastrectomy completed Ny Ramirez [facility] 3 16:57:20 hysterectomy completed Ny Ramirez [facility] 3 16:57:33 Imaging Results None recorded. Procedure [...] Updated DateTime 11/27/2022 160.02 cm 18.2 kg/m2 37828.01 g 98.8 [degF] Ny Ramirez [facility] 11/27/2022 16:54:42 Social History Question Answer Notes LastModified by Organizat ion Details LastModified Time Tobacco Smoking Status Former Smoker Ny Ramirez ree [facility] 11/27/2022 16:56:34 What Is Your Level Of Caffeine Consumption? Occasional [email or web address] Information not available 11/27/2022 What Type Of Diet Are You Following? SPECIFIC [email or web address] Information not available 11/27/2022 When Did You Quit Smoking? 11-15yearssince lastcigarette 2009 [email or web address] Information not available 11/27/2022 What Was The Date Of Your Most Recent Tobacco Screening? 11/27/2022 [email or web address] Information not available 11/27/2022 Sex: Unknown Functional Status Question Answer Note LastModified by Organization D etails LastModified Time Do you or have you ever used any other forms of tobacco or nicotine? No [email or web address] Information not available 11/27/2022 What is your level of alcohol consumption? None Information not available 11/27/2022 Mental Status None recorded. Family History Relationship Description Onset Age of this Age Resolved Age Notes LastModified by Organization Details LastModified Time Maternal Grandmother Diabetes mellitus [email or web address] Not available 2022 16:44:07 Maternal Grandmother Hypertensive disorder [email or web address] Not available 2022 16:55:45 Mother Diabetes mellitus [email or web address] Not available 2022 16:44:19 Mother Hypertensive disorder [email or web address] Not available 2022 16:55:45 Maternal Aunt Diabetes mellitus [email or web address] Not available 2022 16:44:28 Maternal Grandfather Diabetes mellitus [email or web address] Not available 2022 16:55:23 Medical History Condition Response SEIZURES/EPILEPSY Y HEADACHES/MIGRAINES Y GERD/NAUSEA Y HYPERTENSION Y Gynecological HistoryNo gynecological history recorded. Obstetrics History GPAL:G 0 P 0 0 0 0 Past Encounters Encounter ID Performer Location Encounter Start Date Encounter Closed Date Diagnosis/Indication Diagnosis SNOMED-CT Code Diagnosis ICD10 Code Diagnosis Note [id number] Ramon Mcguire MD [facility] [address] [place] [address] 11/27/2022 15:44:33 11/27/2022 16:57:20 Ureteric stone 50304674 N20.1 Health Concerns Section Related Observation LastModified by Organization Detai ls LastModified Time None Recorded Concern Status LastModified by Organization Details LastModified Time None Recorded Advance Directives Directive None Recorded Payers Insurance Date Sequence Insurance Name Policy Number Policy Nicholas Covered Member ID Nicholas Member ID Guarantor Name 05/26/2023 1 [facility] (MEDICAID HMO) [id number] Adrienne Negro [id number] Adrienne Negro Notes Date Note Type Note [...] have any voiding problems. Ramon Mcguire MD [address] [place], [address], [facility] 11/27/2022 17:43:50 OBGyn Episode No OBEpisode recorded.
--- OUTSIDE RECORDS SUMMARY | 2025-01-28 15:56 | XMS_ITS | Encounter Summary ---
Author Organization [facility] Address [address] [place] [address] Care Team Providers Care Integration Analyst Name Role Phone Dennys Mohanandrey Gaines DAM TENDER ASSISTANT Primary Care Provider Reason for Visit * Reason Onset Date Comments Ulcerative Colitis 03/06/2023 LEFT SECURE E [facility] CHAT/ DR [facility] Encounter Details Date Type Department Care Team (Late st Contact Info) Description 03/06/2023 Telephone [facility] Admitting [address] [place] [address] [place] [address] [facility] [address] [place] [address] Ulcerative Colitis (LEFT SECURE EPIC [...] place to sleep or slept in a chcf (including now)? Patient refused 03/05/2023 Feeling Safe [...] on file Legal Sex Female 2:49 PM YOUTH ADVOCATE Gender Identity Not on file Sexual Orientation [...] documented as of this encounter Care Teams Integration Analyst Relationship Specialty Start Date End Date Bernice Mohan FNP [address] [place] [address] PCP - General Nurse Practitioner Family 09/04/21 documented as of this encounter
--- OUTSIDE RECORDS SUMMARY | 2025-01-28 15:56 | XMS_ITS | Patient Health Record ---
Author Organization [facility] Address [address] [place] [address] Care Team Providers Care Wireless Sales Expert Name Role Phone [facility] Unavailable [phone] Reason For Referral No Information Plan Of Treatment No Information
--- OUTSIDE RECORDS SUMMARY | 2025-01-28 15:56 | XMS_ITS | Continuity of Care Document ---
Author Organization [facility] Address [address] [place] [address] Phone Care Team Providers Care Computer Repairer Name Role Phone Rubio Bernardo MD Unavailable [...] Provider Providers Copied on Encounter [facility], [address], [place], [place], [id number], [place] tel:[phone] [facility] No Information Az Bergeron. [address], [facility] [place], [id number], [place]. tel:[phone] Referring Provider: Rubio Bernardo, [address] [facility] [address], [place], [place], [id number]. tel:[phone] PREV VISIT, NEW, AGE 18-39 [facility], [address], [place], [place], [address], [place] tel:[phone] [facility] PHysical (chief complaint) Encntr for general adult medical exam w/o abnormal findings Az Bergeron. [address], [place], [place], [address], [place]. tel:[phone] Referring Provider: Rubio Bernardo [address], [place], [place], [id number]. tel:[phone] Family History Family Member Type Diagnosis Age At Onset Mother Problem (finding) Depression Father Problem (finding) unknown Brother Problem (finding) Alive and well Payers Payer name Insurance type Covered green party ID Authoriza tion(s) No Information Social [...] Matta [address] [place], [place] [phone] Ordered: Referrals: Allopathic & Osteopathic Physicians : [...] to get enough air. Pt went to [place] 10 days ago but her above symptoms [...]
== END 2025-01-28 15:32 | disposition home or self-care (01) ==
LOC: CHSIMG 15:32
PROVIDERS: PCP Nurse Practitioner Family; Visit Provider Nurse Practitioner Family
DX: M25.559 Pain in unspecified hip (principal); M54.9 Dorsalgia, unspecified; M12.88 Other specific arthropathies, not elsewhere classified, other specified site
CPT/HCPCS: 72070; 72100; 73521

== ENCOUNTER 2025-04-06 07:14 | Outpatient (CLI) | payer OTHER, SELFPAY ==
[2025-04-08 05:08] LABS: Deamidated Gliadin Abs, IgA 7 units (0-19); Deamidated Gliadin Abs, IgG 3 units (0-19); Immunoglobulin A, Qn 116 mg/dL (87-352)
[2025-04-12 11:08] LABS: F416-IgE Tri a 19(w-5 gliadin) <0.10 kU/L (Class 0)
== END 2025-04-06 07:15 | disposition home or self-care (01) ==
LOC: CHSLAB 07:16
PROVIDERS: PCP Nurse Practitioner Family; Visit Provider Nurse Practitioner Family
DX: R19.7 Diarrhea, unspecified (principal); R63.4 Abnormal weight loss; R10.9 Unspecified abdominal pain; R11.0 Nausea
CPT/HCPCS: 82784; 82785; 86003; 86008; 86231; 86258

== ENCOUNTER 2025-04-07 12:38 | Outpatient (CLI) | payer OTHER, SELFPAY ==
--- OUTSIDE RECORDS SUMMARY | 2024-08-31 05:15 | XMS_ITS ---
Author Organization [facility] Address [address] [place] [address] Care Team Providers Care Wire Drawer Name Role Phone [facility] Unavailable [phone] REASON FOR VISIT Prescription Refill Encounters Encounter Location Date Provider Diagnosis [facility] [address] [place] [address] 08/31/2024 [facility] Plan Of Treatment No Information Progress Notes * Aspen BOWLINGOB: 9 (34 yo F)Acc No.[id number]:08/31/2024 IMPORT Patient: Adrienne MENDOZA Provider: Antonino ELLIS :1990 A ge:33 Y S ex:Female Date:08/31/2024 Phone: Address:[address] [facility] Subjective: * Chief Complaints: * 1 . Prescription Refill. * Medical History: Objective: * Vitals: Assessment: Plan: * Treatment: * Billing Information: * Visit Code: * Procedure Codes: * Electronic signature of [facility] on 04/07/2025 at 01:42 PM EDT Sign off status: Pending * Provider: Antonino DELGADO [place] Date: 08/31/2024 Generated for Bryant burgos/Fapakog/eTransmitting on: 0 04/07/2025 01:42 PM EDT
--- OUTSIDE RECORDS SUMMARY | 2025-04-07 12:42 | XMS_ITS | Encounter Summary ---
Author Organization [facility] Address [address] [place] [address] Care Team Providers Care Art Objects Salesperson Name Role Phone Gely Mohann Eder PRODUCT SAFETY OFFICER Primary Care Provider Reason for Visit * Reason Onset Date Comments Ulcerative Colitis 03/06/2023 LEFT SECURE E [facility] CHAT/ DR [facility] Encounter Details Date Type Department Care Team (Late st Contact Info) Description 03/06/2023 Telephone [facility] Admitting [address] [place] [address] [place] [address] [facility] [address] [place] [address] Ulcerative Colitis (LEFT SECURE EPIC CHAT/ DR [facility]ED [facility]) Social History Tobacco Use Types Packs/Day Years Used Date Smoking Tobacco: Former Cigarettes Q uit: 2012 Smokeless Tobacco: Never Alcohol Use Standard Drinks/Week Comments Never 0 (1 standard drink = 0.6 oz pur e alcohol) Comments Unknown Sex and Gender Information Value Date Recorded Sex Assigned at Not on file Legal Sex Female 2:49 PM ASSOCIATE FACULTY Gender Identity Not on file Sexual Orientation [...] documented as of this encounter Care Teams Art Objects Salesperson Relationship Specialty Start Date End Date Bernice Mohan FNP [address] [place] [address] PCP - General Nurse Practitioner Family 09/04/21 documented as of this encounter
--- OUTSIDE RECORDS SUMMARY | 2025-04-07 12:42 | XMS_ITS | Clinical Summary ---
Author Organization [employer] [facility] Address [address] [place] [address] Care Team Providers Care Copywriter Name Role Phone Dennys Mohanandrey Gaines RD SCIENTIST Primary Care Provider Allergies No known active [...] on file Legal Sex Female 2:49 PM ASSEMBLY LINE LEADER Gender Identity Not on file Sexual Orientation [...] Health Maintenance Due Date Last Done Comments HPV VACCINES (1 - 3-dose series) 2003 DTAP/TDAP/TD VACCINES (1 - Tdap) 2007 HEPATITIS B VACCINES (1 of 3 - 19+ 3-dose series) 08/21 INFLUENZA VACCINE (#1) 2025 Insurance [employer] Advance Directives For more information, please contact: [phone] * Full Code (Latest Code Status on File) Date Activated Date Inactivated Comments 03/05/2023 7:32 AM 03/07/2023 9:35 PM Care Teams Copywriter Relationship Specialty Start Date End Date Bernice Mohan FNP [address] [place] [address] PCP - General Nurse Practitioner Family 09/04/21
--- OUTSIDE RECORDS SUMMARY | 2025-04-07 12:42 | XMS_ITS | Patient Health Record ---
Author Organization [facility] Address [address] [place] [address] Care Team Providers Care Client Renewal Specialist Name Role Phone [facility] Unavailable [phone] Reason For Referral No Information Plan Of Treatment No Information
[2025-04-07 14:02] LABS: Toxigenic C. Diff NEGATIVE (NEGATIVE)
[2025-04-08 18:08] LABS: Fats, Neutral Normal (.); Fats, Total Normal (.)
[2025-04-09 13:08] LABS: Pancreatic Elastase, Fecal >800 (>200)
[2025-04-09 21:07] LABS: Calprotectin, Fecal 74 ug/g (0-120)
== END 2025-04-07 12:39 | disposition home or self-care (01) ==
LOC: CHSLAB 12:40
PROVIDERS: PCP Nurse Practitioner Family; Visit Provider Nurse Practitioner Family
DX: R19.7 Diarrhea, unspecified (principal); R10.9 Unspecified abdominal pain; R63.4 Abnormal weight loss; R11.0 Nausea
CPT/HCPCS: 82653; 82705; 83993; 87045; 87046; 87177; 87427; 87493

== ENCOUNTER 2025-04-08 09:07 | Outpatient (CLI) | payer OTHER, SELFPAY ==
--- OUTSIDE RECORDS SUMMARY | 2024-08-31 05:15 | XMS_ITS ---
Author Organization [facility] Address [address] [place] [address] Care Team Providers Care Women'S Apparel Salesperson Name Role Phone [facility] Unavailable [phone] REASON FOR VISIT Prescription Refill Encounters Encounter Location Date Provider Diagnosis [facility] [address] [place] [address] 08/31/2024 [facility] Plan Of Treatment No Information Progress Notes * Aspen BOWLINGOB: 9 (34 yo F)Acc No.[id number]:08/31/2024 [facility]ORT Patient: Adrienne MENDOAZ Provider: Antonino DELGADO [place] :1990 A ge:33 Y S ex:Female Date:08/31/2024 Phone: Address:[address] [facility] Subjective: * Chief Complaints: * 1 . Prescription Refill. * Medical History: Objective: * Vitals: Assessment: Plan: * Treatment: * Billing Information: * Visit Code: * Procedure Codes: * Electronic signature of [facility] on 04/08/2025 at 10:37 AM EDT Sign off status: Pending * Provider: Antonino DELGADO [place] Date: 08/31/2024 Generated for Bryant burgos/Fapakog/eTransmitting on: 0 04/08/2025 10:37 AM EDT
--- NOTE | ~2025-04-08 | NM_ITS ---
EXAM: NM gastric emptying study DATE: 04/08/2025 13:51 INDICATION: Unspecified abdominal pain TECHNIQUE: A gastric emptying study was performed using the methodology of Baljeet LAI, et al. J Nucl Med 2007; 48:568-572. The patient was given a meal consisting of 2 scrambled eggs labeled with 0.94 mCi Tc-99m sulfur colloid, 2 slices of toast, two packages of jam, and approximately 120 mL of water. Simultaneous anterior and posterior 1-min images of the abdomen were obtained with the patient supine at multiple time points over a total period of 4 hours. The geometric mean of anterior and posterior views was determined, and the percentage retention was calculated for each time point. COMPARISON: None. FINDINGS: Gastric retention of the radiotracer-labeled meal was 57%, 12%, and 3% at the 1- hour, 2-hour, and 4-hour time points, respectively. With this technique, apparent rapid gastric emptying is suggested by <30% gastric retention at 1 hour. Delayed gastric emptying is defined by gastric retention of >90% at 1 hour, >60% retention at 2 hours, or >10% retention at 4 hours. IMPRESSION: 1. Normal gastric emptying. Reviewed, dictated and finalized at location A. IMPRESSION: 1. Normal gastric emptying.
--- OUTSIDE RECORDS SUMMARY | 2025-04-08 09:37 | XMS_ITS | Patient Health Record ---
Author Organization [facility] Address [address] [place] [address] Care Team Providers Care Log Grader Name Role Phone [facility] Unavailable [phone] Reason For Referral No Information Plan Of Treatment No Information
--- OUTSIDE RECORDS SUMMARY | 2025-04-08 09:37 | XMS_ITS | Clinical Summary ---
Author Organization [facility] Address [address] [facility] [place] [address] Care Team Providers Care Operating Cost Clerk Name Role Phone Bernice Mohan VIOLENT CRIMES DETECTIVE-MALLET CUTTER Primary Care Provider Source Comments [facility],non-owned Affiliates and Associated Physician Practices is amultiple site organization consisting of ambulatory clinics and hospital sitesin [place], [place], [place] and [place]. This disclosure is being madepursuant to the Care Everywhere program and may not contain all information available regarding this patient. Last updated 18.[facility] Allergies No known active allergies Medications * [...] on file Legal Sex Female 5:34 AM DINING ROOM MAID Gender Identity Not on file Sexual Orientation Not on file Last Filed Vital Signs Vital Sign Reading Time Taken Comments Blood Pressure 120/88 11/18/2023 11:09 AM CDT Pulse 78 10/10/2023 10:34 AM DINING ROOM MAID Temperature 36.4 C (97.6 F) 10/10/2023 10:00 AM DINING ROOM MAID Respiratory Rate 16 10/10/2023 10:34 AM DINING ROOM MAID Oxygen Saturation 99% 10/10/2023 10:34 AM DINING ROOM MAID Inhaled Oxygen Concentration - - Weight 50.8 [...] of 3 - 19+ 3-dose series) 2007 HPV VACCINE (1 - 3-dose SCDM series) 2015 COVID-19 VACCINE (1 - 2023-2 5 season) 2024 DEPRESSION SCREENING 08/19/2024 11/18/2023 INFLUENZA VACCINE (#1) 2025 ZOSTER VACCINE (1 of 2) 2038 [...] age to complete this topic Insurance [facility] Care Address: [address] [address] [facility] [employer] [facility] * Guarantor: ADRIENNE TOM Account Type Relation to Patient Date of Phone Billing Address Personal/Family [address] [place] [address] [facility] SELF PAY NO INSURANCE Member Subscriber Plan / Payer (Ef fective for All Dates) Name:Adrienne Tom Member ID:Not on file Relation to Subscriber:Not on file Name:ADRIENNE TOM Subscriber ID:Not on file Address: [address] [place] [address] Payer ID:Not on file Group ID:Not on file Type:Self Pay Address: [place], [place] * Guarantor: ADRIENNE TOM Account Type Relation to Patient Date of Phone Billing Address Personal/Family [address] [place] [address] [facility] SELF PAY NO INSURANCE Member Subscriber Plan / Payer (Ef fective for All Dates) Name:Adrienne Tom Member ID:Not on file Relation to Subscriber:Not on file Name:ADRIENNE TOM Subscriber ID:Not on file Address: [address] [place] [address] Payer ID:Not on file Group ID:Not on file Type:Self Pay Address: [place], [place] * Guarantor: ADRIENNE TOM Account Type Relation to Patient Date of Phone Billing Address Personal/Family [address] [place] [address] [facility] SELF PAY NO INSURANCE Member Subscriber Plan / Payer (Ef fective for All Dates) Name:Adrienne Tom Member ID:Not on file Relation to Subscriber:Not on file Name:ADRIENNE TOM Subscriber ID:Not on file Address: [place] [address] Payer ID:Not on file Group ID:Not on file Type:Self Pay Address: [place], [place] Care Teams Operating Cost Clerk Relationship Specialty Start Date End Date Bernice Mohan APRN-RUBEN [address] [place] [address] PCP - General Nurse Practitioner Family 06/29/21
--- OUTSIDE RECORDS SUMMARY | 2025-04-08 09:37 | XMS_ITS | Encounter Summary ---
Author Organization [facility] Address [address] [place] [address] Care Team Providers Care On Site Manager Name Role Phone Dennys Mohanandrey Gaines BIOINFORMATICS ASSOCIATE Primary Care Provider Reason for Visit * Reason Onset Date Comments Ulcerative Colitis 03/06/2023 LEFT SECURE E [facility] CHAT/ DR [facility] Encounter Details Date Type Department Care Team (Late st Contact Info) Description 03/06/2023 Telephone [facility] Admitting [address] [place] [address] [place] [address] [facility] [address] [place] [address] Ulcerative Colitis (LEFT SECURE EPIC [...] Last Year Not on fi le 03/05/2023 At any time in the past 12 m [facility], were you homeless or living in a alf (including now)? Patient refused 03/05/2023 Feeling Safe [...] on file Legal Sex Female 2:49 PM SAFETY INVESTIGATOR Gender Identity Not on file Sexual Orientation [...] documented as of this encounter Care Teams On Site Manager Relationship Specialty Start Date End Date Bernice Mohan FNP [address] [place] [address] PCP - General Nurse Practitioner Family 09/04/21 documented as of this encounter
--- OUTSIDE RECORDS SUMMARY | 2025-04-08 09:37 | XMS_ITS | Clinical Summary ---
Author Organization [facility] Address [address] [place] [address] Care Team Providers Care Lime Burner Name Role Phone Dennys Mohanandrey Gaines O AND M SUPERVISOR Primary Care Provider [phone] Allergies No known active allergies Medications busPIRone [...] any time in the past 12 m [facility], were you homeless or living in a assisted (including now)? Patient refused 03/05/2023 Feeling Safe [...] on file Legal Sex Female 2:49 PM PRESSURE SUPERVISOR Gender Identity Not on file Sexual Orientation [...] Advance Directives For more information, please contact: [phone] * Full Code (Latest Code Status on File) Date Activated Date Inactivated Comments 03/05/2023 7:32 AM 03/07/2023 9:35 PM Care Teams Lime Burner Relationship Specialty Start Date End Date Bernice Mohan FNP [address] [place] [address] PCP - General Nurse Practitioner Family 09/04/21
== END 2025-04-08 09:08 | disposition home or self-care (01) ==
PROVIDERS: PCP Nurse Practitioner Family; Visit Provider Nurse Practitioner Family
DX: R10.9 Unspecified abdominal pain (principal); R11.0 Nausea; Z90.3 Acquired absence of stomach [part of]
CPT/HCPCS: 78264; A9541

== ENCOUNTER 2025-05-17 10:39 | Outpatient (CLI) | payer OTHER, SELFPAY ==
--- NOTE | ~2025-05-17 | XR_ITS ---
XR cervical spine 4-5V Indication: M54.2 - Cervicalgia Comparison: None Findings: Minimal grade 1 retrolisthesis of C5 on C6, no fracture. Moderate loss of disc height at C5-C6. Soft tissues unremarkable Impression: No acute abnormality. Reviewed, dictated and finalized at location P. Impression: No acute abnormality.
--- NOTE | ~2025-05-17 | XR_ITS ---
XR thoracic spine 3V Indication: M54.6 - Pain in thoracic spine Comparison: None Findings: The vertebral heights are intact. No fracture or subluxation. The disc heights are intact. Soft tissues unremarkable Impression: No acute abnormality. Reviewed, dictated and finalized at location P. Impression: No acute abnormality.
--- NOTE | ~2025-05-17 | XR_ITS ---
Lumbar spine series Indication: Pain, M 54.6 Comparison: CT abdomen and pelvis 11/19/2022 Technique: 3 views lumbar spine Findings: 5 nonrib-bearing lumbar-type vertebral bodies. Hypoplastic ribs T12. No acute fracture. No listhesis. Vertebral bodies normal height. Disc spaces maintained. No significant degenerative changes. SI joints congruent. Sacrum intact. IMPRESSION: 1. No acute findings. Reviewed, dictated and finalized at location R. IMPRESSION: 1. No acute findings.
--- NOTE | ~2025-05-17 | XR_ITS ---
EXAMINATION: XR hip BI wo pelvis, 05/17/2025 11:00 CDT HISTORY: M54.42 - Lumbago with sciatica, left side COMPARISON: No comparisons available. Findings: No acute fracture or malalignment. No significant degenerative changes. Soft tissues unremarkable. Impression: No acute fracture or malalignment. Reviewed, dictated and finalized at location P. Impression: No acute fracture or malalignment.
--- OUTSIDE RECORDS SUMMARY | 2025-05-17 11:19 | XMS_ITS | Data Portability ---
Author Organization [facility], DISP_HR Vascular Address [address] [place] [address] Care Team Providers Care Associate Doctor Name Role Phone ZOYA JAMI Primary Care [...] Modified By Organization Details Last Modified Time 11/27/[id number] Impression is th at the patient has [...] Address Organization Details Recorded Time Ureteric stone 28151854 Active 023 [place] [address] [place] [address], [id number] , [facility] 16:47:36 Problem Notes None recorded. Procedures Surgical History Date Name Laterality Status Provider Name and Address Organization Details Recorded Time 2021 esophagogastroduodenoscopy completed Chris Ramirez [facility] 3 17:02:05 cholecystectomy completed Ny Ramirez [facility] 3 16:56:51 laparoscopic sleeve gastrectomy completed Ny Ramirez [facility] 3 16:57:20 hysterectomy completed Ny Ramirez [facility] 3 16:57:33 Imaging Results None recorded. [...] height Body mass index (BMI) Body weight Pain severity - 0-10 verbal numeric rating [Score] - Reported Body temperature Provider Name and Address Organization Details Last Updated DateTime 11/27/2022 160.02 cm 18.2 kg/m2 63198.01 g 5 98.8 [degF] Ny James [facility] 3 16:54:42 Social History Question Answer Notes LastModified by Organizat ion Details LastModified Time Tobacco Smoking Status [facility] 11/27/2022 16:56:34 What Is Your Level Of Caffeine Consumption? Occasional [email or web address] Information not available 11/27/2022 What Type Of Diet Are You Following? SPECIFIC [email or web address] Information not available 11/27/2022 When Did You Quit Smoking? 11-15yearssince lastcigarbrittaney 2009 Information not available 11/27/2022 What Was The Date Of Your Most Recent Tobacco Screening? 11/27/2022 [email or web address] Information not available 11/27/2022 Sex: Unknown Functional Status Question Answer Note LastModified by Organization D etails LastModified Time Do you or have you ever used any other forms of tobacco or nicotine? No Information not available 11/27/2022 What is your level of alcohol consumption? None [email or web address] Information not available 11/27/2022 Mental Status None recorded. Family History Relationship Description Onset Age of this Age Resolved Age Notes LastModified by Organization Details LastModified Time Maternal Grandmother Diabetes mellitus [email or web address] Not available 2022 16:44:07 Maternal Grandmother Hypertensive disorder [email or web address] Not available 2022 16:55:45 Mother Diabetes mellitus [email or web address] Not available 2022 16:44:19 Mother Hypertensive disorder [email or web address] Not available 2022 16:55:45 Maternal Aunt Diabetes mellitus [email or web address] Not available 2022 16:44:28 Maternal Grandfather Diabetes mellitus [email or web address] Not available 2022 16:55:23 Medical History Condition Response SEIZURES/EPILEPSY Y HEADACHES/MIGRAINES Y GERD/NAUSEA Y HYPERTENSION Y Gynecological HistoryNo gynecological history recorded. Obstetrics History GPAL:G 0 P 0 0 0 0 Past Encounters Encounter ID Performer Location Encounter Start Date Encounter Closed Date Diagnosis/Indication Diagnosis SNOMED-CT Code Diagnosis ICD10 Code Diagnosis IMO Codes Diagnosis Note [id number] Ramon Mcguire MD [facility] [address] [place] [address] 11/27/2022 15:44:33 11/27/2022 16:57:20 Ureteric stone 40246111 N20.1 Health Concerns Section Related Observation LastModified by Organization Detai ls LastModified Time None Recorded Concern Status LastModified by Organization Details LastModified Time None Recorded Advance Directives Directive None Recorded Payers Insurance Date Sequence Insurance Name Policy Number Policy Nicholas Covered Member ID Nicholas Member ID Guarantor Name 05/26/2023 1 [facility] (MEDICAID HMO) [id number] Adrienne Tom [id number] Adrienne Tom Notes Date Note Type Note [...] have any voiding problems. Ramon Mcguire MD [address] [place], [address], [facility] 11/27/2022 17:43:50 OBGyn Episode No OBEpisode recorded.
--- OUTSIDE RECORDS SUMMARY | 2025-05-17 11:19 | XMS_ITS | Encounter Summary ---
Author Organization [facility] Address [address] [place] [address] Care Team Providers Care Steelworker Name Role Phone Dennys Mohanandrey Gaines SUPERVISOR HOT DIP PLATING Primary Care Provider Reason for Visit * Reason Onset Date Comments Ulcerative Colitis 03/06/2023 LEFT SECURE E [facility] CHAT/ DR [facility] Encounter Details Date Type Department Care Team (Late st Contact Info) Description 03/06/2023 Telephone [facility] Admitting [address] [place] [address] [place] [address] [facility] [address] [place] [address] Ulcerative Colitis (LEFT SECURE EPIC [...] any time in the past 12 m [facility], were you homeless or living in a nursing home (including now)? Patient refused 03/05/2023 Feeling Safe [...] on file Legal Sex Female 2:49 PM MANAGER UNIVERSAL Gender Identity Not on file Sexual Orientation [...] documented as of this encounter Care Teams Steelworker Relationship Specialty Start Date End Date Bernice Mohan FNP [address] [place] [address] PCP - General Nurse Practitioner Family 09/04/21 documented as of this encounter
--- OUTSIDE RECORDS SUMMARY | 2025-05-17 11:19 | XMS_ITS | Clinical Summary ---
Author Organization [facility] Address [facility] [place] [address] Care Team Providers Care Claims Sorter Name Role Phone Fabien Spring ABRAM Primary Care Provider [phone] Allergies No known active allergies Medications clonazePAM (KLONOPIN) 0.5 MG tablet Take 1 tablet (0.5 mg total) by mouth. Active busPIRone (BUSPAR) 5 MG tablet Take 1 tablet (5 mg total) by mouth 2 (two) times daily. Active lamoTRIgine (LAMICTAL) 200 MG tablet Take 1 tablet (200 mg total) by mouth daily. Active MULTIPLE VITAMINS-MINERAL S ER OR Active Family History Medical History Relation Comments Hypertension Mother Relation Status Comments Mother Social History Tobacco Use Types Packs/Day Years Used Date Smoking Tobacco: Former Cigarettes Q uit: 2008 Passive Smoke Exposure: Past Tobacco Cessation:Counseling Given: Not Answered Comments:Quit 08/19/2010 Alcohol Use Standard Drinks/Week Comments Yes 0 (1 standard drink = 0.6 oz pur e alcohol) seldom Comments Unknown Sex and Gender Information Value Date Recorded Sex Assigned at Not on file Legal Sex Female 11:18 AM CDT Gender Identity Not on file Sexual Orientation Not on file Plan of Treatment Health Maintenance Due Date Last Done Comments Annual Physical 1991 Hepatitis C 2006 DTaP, Tdap and Td Vaccines ( 1 - Tdap) 2007 Hepatitis B Vaccines (1 of 3 - 19+ 3-dose series) 2007 HPV Vaccines (1 - 3-dose SCD M series) 2015 PHQ-2 (Physician [place]) 08/19/2024 COVID-19 Vaccine (2023-2 5 season) 2025 Meningococcal B Vaccine Aged Out No l onger eligible based on patient's age to complete this topic Meningococcal Vaccine Aged Out No gerardo pam eligible based on patient's age to complete this topic Pneumococcal Vaccine: Pediat rics (0 to 5 Years) and At-Risk Patients (6 to 49 Years) Aged Out No longer eligible b ased on patient's age to complete this topic RSV Immunizations Under 20 Months Aged Out No longer eligible based on patient's age to complete this topic Insurance [place] Care Teams Claims Sorter Relationship Specialty Start Date End Date Fabien Spring FNP [address] [place] [phone] PCP - General Nurse Practitioner Family 12/23/24
--- OUTSIDE RECORDS SUMMARY | 2025-05-17 11:19 | XMS_ITS | Clinical Summary ---
Author Organization [facility] Address [address] [facility] [place] [address] Care Team Providers Care Punchboard Assembler Name Role Phone Bernice Mohan FENCE GATE ASSEMBLER-HOUSE SUPERVISOR Primary Care Provider Source Comments [facility],non-owned Affiliates and Associated Physician Practices is amultiple site organization consisting of ambulatory clinics and hospital sitesin [place], [place], [place] and [place]. This disclosure is being madepursuant to the Care Everywhere program and may not contain all information available regarding this patient. Last updated 18.[facility] Allergies No known active allergies Medications * [...] on file Legal Sex Female 5:34 AM SERVICE CONSULTANT Gender Identity Not on file Sexual Orientation Not on file Last Filed Vital Signs Vital Sign Reading Time Taken Comments Blood Pressure 120/88 11/18/2023 11:09 AM CDT Pulse 78 10/10/2023 10:34 AM SERVICE CONSULTANT Temperature 36.4 C (97.6 F) 10/10/2023 10:00 AM SERVICE CONSULTANT Respiratory Rate 16 10/10/2023 10:34 AM SERVICE CONSULTANT Oxygen Saturation 99% 10/10/2023 10:34 AM SERVICE CONSULTANT Inhaled Oxygen Concentration - - Weight 50.8 [...] VACCINE (1 - 3-dose SCDM series) 2015 DEPRESSION SCREENING 08/19/2024 11/18/2023 COVID-19 VACCINE (1 - 2023-2 5 season) 2025 INFLUENZA VACCINE (#1) 2025 ZOSTER VACCINE (1 [...] patient's age to complete this topic Insurance [facility] Care Address: [address] [address] [facility] [employer] [facility] [employer] * Guarantor: ADRIENNE TOM Account Type Relation to Patient Date of Phone Billing Address Personal/Family [address] [place] [address] [facility] SELF PAY NO INSURANCE Member Subscriber Plan / Payer (Ef fective for All Dates) Name:Adrienne Tom Member ID:Not on file Relation to Subscriber:Not on file Name:ADRIENNE TOM Subscriber ID:Not on file Address: [address] [place] [id number] Payer ID:Not on file Group ID:Not on file Type:Self Pay Address: [place], [place] * Guarantor: ADRIENNE TOM Account Type Relation to Patient Date of Phone Billing Address Personal/Family [address] [place] [address] [facility] SELF PAY NO INSURANCE Member Subscriber Plan / Payer (Ef fective for All Dates) Name:Adrienne Tom Member ID:Not on file Relation to Subscriber:Not on file Name:ADRIENNE TOM Subscriber ID:Not on file Address: [address] [facility] [facility] [place] [address] Payer ID:Not on file Group ID:Not on file Type:Self Pay Address: [place], [place] * Guarantor: ADRIENNE TOM Account Type Relation to Patient Date of Phone Billing Address Personal/Family [address] [place] [address] [facility] SELF PAY NO INSURANCE Member Subscriber Plan / Payer (Ef fective for All Dates) Name:Adrienne Tom Member ID:Not on file Relation to Subscriber:Not on file Name:ADRIENNE TOM Subscriber ID:Not on file Address: [place] [address] Payer ID:Not on file Group ID:Not on file Type:Self Pay Address: [place], [place] Care Teams Punchboard Assembler Relationship Specialty Start Date End Date Bernice Mohan APRN-RUBEN [address] [place] [address] PCP - General Nurse Practitioner Family 06/29/21
--- OUTSIDE RECORDS SUMMARY | 2025-05-17 11:19 | XMS_ITS | Clinical Summary ---
Author Organization [employer] [facility] Address [address] [place] [address] Care Team Providers Care Machining Supervisor Name Role Phone Dennys Mohanandrey Gaines RESEARCH PHLEBOTOMIST Primary Care Provider Allergies No known active [...] any time in the past 12 m [facility], were you homeless or living in a half-way (including now)? Patient refused 03/05/2023 Feeling Safe [...] on file Legal Sex Female 2:49 PM RCP Gender Identity Not on file Sexual Orientation [...] of 3 - 19+ 3-dose series) 08/21 HPV VACCINES (1 - 3-dose SCDM series) 2015 INFLUENZA VACCINE (#1) 2025 Insurance [employer] [place] Advance Directives For more information, please contact: [phone] * Full Code (Latest Code Status on File) Date Activated Date Inactivated Comments 03/05/2023 7:32 AM 03/07/2023 9:35 PM Care Teams Machining Supervisor Relationship Specialty Start Date End Date Bernice Mohan FNP [address] [place] [address] PCP - General Nurse Practitioner Family 09/04/21
[2025-05-17 11:31] LABS: Add Urine Microscopic? YES; Appearance Urine Clear (Clear); Glucose Urine UA Negative (Negative); Leukocyte Esterase Ur Trace LEU/UL (Negative); Nitrate Urine Negative (Negative); Specific Grav Ur 1.015 (1.010-1.020)
== END 2025-05-17 10:40 | disposition home or self-care (01) ==
LOC: CHSLAB 10:42
PROVIDERS: PCP Nurse Practitioner Family; Visit Provider Nurse Practitioner Family
DX: M54.2 Cervicalgia (principal); G89.29 Other chronic pain; M54.6 Pain in thoracic spine; M54.42 Lumbago with sciatica, left side; R39.15 Urgency of urination
CPT/HCPCS: 72050; 72072; 72100; 73521; 81001

== ENCOUNTER 2025-07-06 14:29 | Outpatient (CLI) | payer OTHER, SELFPAY ==
--- NOTE | ~2025-07-06 | XR_ITS ---
EXAMINATION: XR wrist LT min 3V, 07/06/2025 14:43 MAJOR SALES ASSOCIATE HISTORY: M67.432 - Ganglion, left wrist COMPARISON: No comparisons available. Findings: No acute fracture or malalignment. No significant degenerative changes. Soft tissues unremarkable. Impression: No acute fracture or malalignment. Reviewed, dictated and finalized at location P. R SALES ASSOCIATE Impression: No acute fracture or malalignment.
--- OUTSIDE RECORDS SUMMARY | 2025-07-07 01:35 | XMS_ITS | Clinical Summary ---
Author Organization [facility] Address Formerly [facility] [place] [address] Care Team Providers Care Burn Out Scarfing Operator Name Role Phone Fabien Spring ABRAM Primary Care Provider [phone] Allergies No known active allergies Medications clonazePAM (KLONOPIN) 0.5 MG tablet Take 1 tablet (0.5 mg total) by mouth. Active busPIRone (BUSPAR) 5 MG tablet Take 1 tablet (5 mg total) by mouth 2 (two) times daily. Active lamoTRIgine (LAMICTAL) 200 MG tablet Take 1 tablet (200 mg total) by mouth daily. Active MULTIPLE VITAMINS-MINERAL S ER OR Active Encounters Date Type Department Care Team Description 06/14/2025 Telephone [facility] Medical [facility] Orthopedic & Sports Medicine [facility] [address] [place] [address] Tien Arboleda MD Referral 05/19/2025 Telephone [facility] Orthopedic & Sports Medicine [facility] [address] [place] [address] Tien Arboleda MD Referral from Last 3 Months Family History Medical History Relation Comments Hypertension [...] 3-dose SCD M series) 2015 PHQ-2 (Physician [place]) 08/19/2024 COVID-19 Vaccine (1 - 2024-2 6 season) 2025 Influenza Adult (#1) 2025 Hepatitis A Vaccines Aged Out No long er eligible based on patient's age to complete this topic Meningococcal B Vaccine Aged Out No l [...] to complete this topic Insurance [employer] Care Teams Burn Out Scarfing Operator Relationship Specialty Start Date End Date Fabien Spring FNP [address] [place] [phone] PCP - General Nurse Practitioner Family 12/23/24
--- OUTSIDE RECORDS SUMMARY | 2025-07-07 01:36 | XMS_ITS | Clinical Summary ---
Author Organization [place] [id number] [facility] Address [address] [place] [address] Care Team Providers Care Skiver Uppers Or Linings Name Role Phone Kimberlee, Bernice Gaines GENERAL FARM MANAGER Primary Care Provider Allergies No known active [...] Noted Date Diagnosed Date Protein-calorie malnutrition, moderate 3 Abdominal pain 03/05/2023 Acute colitis 03/05/2023 Anxiety [...] any time in the past 12 m [facility], were you homeless or living in a penitentiary (including now)? Patient refused 03/05/2023 Feeling Safe [...] on file Legal Sex Female 2:49 PM COPPERSMITH APPRENTICE Gender Identity Not on file Sexual Orientation [...] Advance Directives For more information, please contact: [phone] * Full Code (Latest Code Status on File) Date Activated Date Inactivated Comments 03/05/2023 7:32 AM 03/07/2023 9:35 PM Care Teams Skiver Uppers Or Linings Relationship Specialty Start Date End Date Bernice Mohan FNP [address] [place] [phone] PCP - General Nurse Practitioner Family 09/04/21
--- OUTSIDE RECORDS SUMMARY | 2025-07-07 01:37 | XMS_ITS | Encounter Summary ---
Author Organization [facility] Address [address] [place] [address] Care Team Providers Care Liquid Fertilizer Servicer Name Role Phone Dennys Mohanandrey Gaines CONSTRUCTION SUPERVISOR/CARPENTER Primary Care Provider Reason for Visit * Reason Onset Date Comments Ulcerative Colitis 03/06/2023 LEFT SECURE E [facility] CHAT/ DR [facility] Encounter Details Date Type Department Care Team (Late st Contact Info) Description 03/06/2023 Telephone [facility] Admitting [address] [place] [address] [place] [address] [facility] [address] [place] [address] Ulcerative Colitis (LEFT SECURE EPIC [...] or rent on time? Patient refused 03/05/20 Number of Times Moved in the Last Year Not on fi le 03/05/2023 At any time in the past 12 m [facility], were you homeless or living in a long term (including now)? Patient refused 03/05/2023 Feeling Safe [...] on file Legal Sex Female 2:49 PM HOT HEAD MACHINE OPERATOR Gender Identity Not on file [...] documented as of this encounter Care Teams Liquid Fertilizer Servicer Relationship Specialty Start Date End Date Bernice Mohan FNP [address] [place] [address] PCP - General Nurse Practitioner Family 09/04/21 documented as of this encounter
--- OUTSIDE RECORDS SUMMARY | 2025-07-07 01:37 | XMS_ITS | Clinical Summary ---
Author Organization [facility] Address [address] [place] [address] Care Team Providers Care Skein Tier Name Role Phone Bernice Mohan BUSBOY-SUPERVISOR BONDING Primary Care Provider Source Comments [facility],non-owned Affiliates and Associated Physician Practices is amultiple site organization consisting of ambulatory clinics and hospital sitesin [place], [place], [place] and [place]. This disclosure is being madepursuant to the Care Everywhere program and may not contain all information available regarding this patient. Last updated 18.[facility] Allergies No known active allergies Medications * [...] on file Legal Sex Female 5:34 AM COPY MESSENGER Gender Identity Not on file Sexual Orientation Not on file Last Filed Vital Signs Vital Sign Reading Time Taken Comments Blood Pressure 120/88 11/18/2023 11:09 AM CDT Pulse 78 10/10/2023 10:34 AM COPY MESSENGER Temperature 36.4 C (97.6 F) 10/10/2023 10:00 AM COPY MESSENGER Respiratory Rate 16 10/10/2023 10:34 AM COPY MESSENGER Oxygen Saturation 99% 10/10/2023 10:34 AM COPY MESSENGER Inhaled Oxygen Concentration - - Weight 50.8 [...] patient's age to complete this topic Insurance [facility] Care Address: [address] [address] [facility] * Guarantor: ADRIENNE TOM Account Type Relation to Patient Date of Phone Billing Address Personal/Family [address] [place] [address] [facility] SELF PAY NO INSURANCE Member Subscriber Plan / Payer (Ef fective for All Dates) Name:Adrienne Tom Member ID:Not on file Relation to Subscriber:Not on file Name:ADRIENNE TOM Subscriber ID:Not on file Address: [address] [place] [phone] Payer ID:Not on file Group ID:Not on file Type:Self Pay Address: [place], [place] * Guarantor: ADRIENNE TOM Account Type Relation to Patient Date of Phone Billing Address Personal/Family [address] [place] [address] [facility] SELF PAY NO INSURANCE Member Subscriber Plan / Payer (Ef fective for All Dates) Name:Adrienne Tom Member ID:Not on file Relation to Subscriber:Not on file Name:ADRIENNE TOM Subscriber ID:Not on file Address: [address] [place] [address] Payer ID:Not on file Group ID:Not on file Type:Self Pay Address: [place], [place] * Guarantor: ADRIENNE TOM Account Type Relation to Patient Date of Phone Billing Address Personal/Family [address] [place] [address] [facility] SELF PAY NO INSURANCE Member Subscriber Plan / Payer (Ef fective for All Dates) Name:Adrienne Tom Member ID:Not on file Relation to Subscriber:Not on file Name:ADRIENNE TOM Subscriber ID:Not on file Address: [place] [address] Payer ID:Not on file Group ID:Not on file Type:Self Pay Address: [place], [place] Care Teams Skein Tier Relationship Specialty Start Date End Date Bernice Mohan APRN-RUBEN [address] [place] [address] PCP - General Nurse Practitioner Family 06/29/21
== END 2025-07-06 14:30 | disposition home or self-care (01) ==
PROVIDERS: PCP Nurse Practitioner Family; Visit Provider Plastic Surgery
DX: M67.432 Ganglion, left wrist (principal)
CPT/HCPCS: 73110

== ENCOUNTER 2025-07-12 18:02 | Emergency (ER) | payer OTHER, SELFPAY ==
--- NOTE | ~2025-07-12 | XR_ITS ---
EXAMINATION: XR hand RT min 3V DATE: 07/12/2025 18:22 INDICATION: Cat bite. The location of the cat-bite was not marked TECHNIQUE: 3 views were obtained. COMPARISON: None. FINDINGS: No acute bony lesions of the right hand. No soft tissue abnormalities are seen. No radiopaque foreign objects are seen in the soft tissues. IMPRESSION: 1. No acute findings of the right hand. Reviewed, dictated and finalized at location T. ORCHARDIST
[2025-07-12 18:03] VITALS: BP 124/86; PULSE 68; RESP 16; TEMP 36.7; O2SAT 100
--- NOTE | 2025-07-12 18:16 | ED.ANIMALBIT ---
HPI - Animal Bite General Chief Complaint: Animal Bite Stated Complaint: cat bite on right hand Time Seen by Provider: 07/12/25 18:07 Source: patient Mode of arrival: ambulatory Limitations: no limitations History of Present Illness HPI narrative: Patient came to the ED with cat bite to right hand yesterday. Patient report that she was petting a stray cat on the top of the neck and head, CT get agitated and bit her right hand at the dorsal side of the right thump some scratch at the left wrist area. Patient was able to clean the bite with warm water and soap yesterday, came today because of pain and the possibility of rabies vaccine. Patient is telling me that she been seeing the cat in the neighborhood for quite a bit of time. She denies any fever, chills, nausea vomiting. Related Data Home Medications ?Medication ?Instructions ?Recorded ?Confirmed ?Last Taken ?Type clonazepam 0.5 mg tablet (Klonopin) 0.5 mg PO QHS 10/02/23 06/08/25 Unknown History buspirone 5 mg tablet 5 mg PO TID 12/07/24 06/08/25 Unknown History Allergies Allergy/AdvReac Type Severity Reaction Status Date / Time No Known Allergies Allergy Verified 07/12/25 18:07 Review of Systems Review of Systems: All systems reviewed & are unremarkable except as noted in HPI and below PMFSH Past Medical History Medical History IBS (irritable bowel syndrome) Centromere antibody positive Weight loss Failure to thrive LUQ abdominal pain Lumbar degenerative disc disease Salpingitis Post hysterectomy menopause Seizure disorder Anxiety Depression Vaginal delivery x 3 Surgical History Surgical History History of sleeve gastrectomy S/P gastric sleeve procedure Bariatric surgery status H/O wrist surgery cyst from Left History of hysterectomy History of cholecystectomy Family History Family History Grandparent Acute myocardial infarction Mother Hypertension Other Cervical cancer Diabetes mellitus Social History Social History Social History: Caffeine-half calf Smoking packs per day: 0.5 Smoking cigarettes per day: 10.0 Years smoked: 3 Smoking pack-years: 1.50 Smoking status: Former smoker Tobacco type: cigarettes Smoking end date: 08/19/10 Alcohol intake: never Substance use: current Substance use type: marijuana Other substance usage details: THC edibles Do You Feel Safe in your Home?: Yes Lack of Transportation: No Lack of Food: Sometimes True Current Housing: I Have Housing Concerned About Future Housing: YES Difficulty Paying Gas/Electric Bills: YES Difficulty Paying for Meds: No Currently Unemployed: YES Education: High School Diploma/GED Difficulty w/ Childcare or Family Care: No Living arrangements: with family Spiritual care concerns: No Exam Narrative: General appearance: Well-developed, well-nourished Skin: Normal color Chest and respiratory: Airway patent, no respiratory distress, no accessory muscle use Heart: Regular rate/rhythm Abdomen: Soft, nontender, no organomegaly, quiet bowel sounds Vascular: Normal peripheral pulses, normal capillary refill. Musculoskeletal: Multiple puncture wound at the web area between the right thumb and index, dorsal side, few scratches at the left wrist the bite and scratches are dry and clean Neurologic: Alert and oriented ?3, JET INSPECTOR is normal as tested, no gross motor deficit Course Vital Signs Vital signs: Vital Signs Temperature 36.7 C 07/12/25 18:03 Pulse Rate 68 07/12/25 18:03 Respiratory Rate 16 07/12/25 18:03 Blood Pressure 124/86 07/12/25 18:03 Pulse Oximetry 100 07/12/25 18:03 Oxygen Delivery Room Air 07/12/25 18:03 Temperature 36.7 C 07/12/25 18:03 Pulse Rate 68 07/12/25 18:03 Respiratory Rate 16 07/12/25 18:03 Blood Pressure 124/86 07/12/25 18:03 Pulse Oximetry 100 07/12/25 18:03 Oxygen Delivery Room Air 07/12/25 18:03 MDM - Animal Bite MDM Narrative Medical decision making narrative: Right hand cat bite X-ray of the right hand showed no acute abnormality Patient received a tetanus shot in the emergency room The cat bite was provoked by the patient. Rabies is extremely less likely. Infection was disease coordination my facility was notified, patient was advised to call the health department for further evaluation about the possibility of rabies vaccine. Discharged on Augmentin. The pt was discharged to home.the pt,s condition upon discharge was fair,education was provided to the pt in reference to the final impression,discharge study results,treatment,prognosis and need for follow up . Imaging Data Radiologist's impression: Impressions Hand X-Ray 07/12/25 18:28 IMPRESSION: 1. No acute findings of the right hand. Critical Care Time Critical Care Time Critical Care Time: No Discharge Plan Discharge Clinical Impression: Cat bite Patient Disposition: Home Condition: Stable Instructions: Antibiotic Form, Animal Bite (ED) Additional Instructions: Return if symptoms are worsening , call your family physician for appointment, take Tylenol, ibuprofen as as needed for aches and pain, continue home medications. Keep hand elevated Please contact the local health department for further evaluation and instruction about the possibility of rabies vaccine. Patient Language: Upper Sorbian Prescriptions: New amoxicillin-pot clavulanate [Augmentin] 500-125 mg tablet 1 tablet PO Q8H Qty: 21 0RF No Action buspirone 5 mg tablet 5 mg PO TID clonazepam [Klonopin] 0.5 mg tablet 0.5 mg PO QHS Rx Instructions: administer 30 minutes before bedtime lamotrigine 200 mg tablet 200 mg PO BID Qty: 60 8RF Rx Instructions: TAKE 1 TABLET(200 MG) BY MOUTH TWICE DAILY Follow-up/Referrals: Fabien Spring APRN [Primary Care Provider, Family Practice]
[2025-07-12] MEDS: TETANUS,DIPHTHERIA,AC PERTUSSIS ADULT 0.5 ML (ADACEL) IM (18:21)
--- OUTSIDE RECORDS SUMMARY | 2025-07-12 18:41 | XMS_ITS | Clinical Summary ---
Author Organization [facility] Address [facility] [place] [address] Care Team Providers Care Convention Services Manager Name Role Phone Fabien Spring ABRAM Primary Care Provider [phone] Allergies No known active allergies Medications clonazePAM [...] Type Department Care Team Description 06/14/2025 Telephone [facility] Orthopedic & Sports Medicine [facility] [address] [place] [address] Tien Arboleda MD Referral 05/19/2025 Telephone [facility] Orthopedic & Sports Medicine [facility] [address] [place] [address] Tien Arboleda MD Referral from Last 3 [...] 3-dose SCD M series) 2015 PHQ-2 (Physician [place]) 08/19/2024 COVID-19 Vaccine (1 - 2024-2 6 [...] this topic Insurance [employer] Care Teams Convention Services Manager Relationship Specialty Start Date End Date Fabien Spring FNP [address] [place] [phone] PCP - General Nurse Practitioner Family 12/23/24
--- OUTSIDE RECORDS SUMMARY | 2025-07-12 18:42 | XMS_ITS | Encounter Summary ---
Author Organization [facility] Address [address] [place] [address] Care Team Providers Care Signal Tower Operator Name Role Phone Dennys Mohanandrey Gaines BORING MILL OPERATOR Primary Care Provider Reason for Visit * Reason Onset Date Comments Ulcerative Colitis 03/06/2023 LEFT SECURE E [facility] CHAT/ [facility] Encounter Details Date Type Department Care Team (Late st Contact Info) Description 03/06/2023 Telephone [facility] Admitting [address] [place] [address] [place] [address] [facility] [address] [place] [address] Ulcerative Colitis (LEFT SECURE EPIC CHAT/ [facility]) Social History Tobacco Use Types Packs/Day Years Used Date Smoking Tobacco: Former Cigarettes 1 Q uit: 2012 Smokeless Tobacco: Never Alcohol [...] any time in the past 12 m [facility], were you homeless or living in a [facility] (including now)? Patient refused 03/05/2023 Feeling Safe [...] on file Legal Sex Female 2:49 PM INSULATION TECHNICIAN Gender Identity Not on file Sexual [...] documented as of this encounter Care Teams Signal Tower Operator Relationship Specialty Start Date End Date Bernice Mohan FNP [address] [place] [phone] PCP - General Nurse Practitioner Family 09/04/21 documented as of this encounter
--- OUTSIDE RECORDS SUMMARY | 2025-07-12 18:42 | XMS_ITS | Clinical Summary ---
Author Organization [id number] Address [address] [place] [address] Care Team Providers Care Wire Coiler Name Role Phone Kimberlee, Bernice Gaines LAST MODEL MAKER Primary Care Provider Allergies No known active [...] any time in the past 12 m [facility], were you homeless or living in [...] on file Legal Sex Female 2:49 PM RESET MERCHANDISER Gender Identity Not on file Sexual Orientation [...] Advance Directives For more information, please contact: [phone] * Full Code (Latest Code Status on File) Date Activated Date Inactivated Comments 03/05/2023 7:32 AM 03/07/2023 9:35 PM Care Teams Wire Coiler Relationship Specialty Start Date End Date Bernice Mohan FNP [address] [place] [address] PCP - General Nurse Practitioner Family 09/04/21
--- OUTSIDE RECORDS SUMMARY | 2025-07-12 18:42 | XMS_ITS | Data Portability ---
Author Organization [facility] Address [address] [place] [address] Care Team Providers Care Wildlife Biologist Name Role Phone ZOYA JAMI Primary Care Provider [phone] RAMON MCGUIRE Urologist Assessment No assessment recorded. [...] Modified By Organization Details Last Modified Time 11/27/[id number] Impression is th at the patient has [...] Address Organization Details Recorded Time Ureteric stone 76313070 Active 023 [place] [address] [place] [address], [phone] , [facility] 16:47:36 Problem Notes None recorded. Procedures Surgical History Date Name Laterality Status Provider Name and Address Organization Details Recorded Time 2021 esophagogastroduodenoscopy completed Chris Ramirez [facility] 3 17:02:05 cholecystectomy completed Ny Ramirez [facility] 3 16:56:51 laparoscopic sleeve gastrectomy completed Ny Ramirez [facility] 3 16:57:20 hysterectomy completed Ny Ramirez [facility] 3 16:57:33 Imaging Results None recorded. Procedure [...] Updated DateTime 11/27/2022 160.02 cm 18.2 kg/m2 36205.01 g 5 98.8 [degF] Ny James [facility] 3 16:54:42 Social History Question Answer Notes LastModified by Organizat ion Details LastModified Time Tobacco Smoking Status Former Smoker Ny [facility] 11/27/2022 16:56:34 What Is Your Level Of Caffeine Consumption? Occasional [email or web address] Information not available 11/27/2022 What Type Of Diet Are You Following? SPECIFIC [email or web address] Information not available 11/27/2022 When Did You Quit Smoking? 11-15yearssince lastcigarbrittaney 2009 [email or web address] Information not available 11/27/2022 What Was The Date Of Your Most Recent Tobacco Screening? 11/27/2022 [email or web address] Information not available 11/27/2022 Sex: Unknown Functional Status Question Answer Note LastModified by Organization D etails LastModified Time Do you or have you ever used any other forms of tobacco or nicotine? No [email or web address] Information not available 11/27/2022 What is your level of alcohol consumption? None [email or web address] Information not available 11/27/2022 Mental Status None recorded. Family History Relationship Description Onset Age of this Age Resolved Age Notes LastModified by Organization Details LastModified Time Maternal Grandmother Diabetes mellitus [email or web address] Not available 2022 16:44:07 Maternal Grandmother Hypertensive disorder [email or web address] Not available 2022 16:55:45 Mother Diabetes mellitus [email or web address] Not available 2022 16:44:19 Mother Hypertensive disorder [email or web address] Not available 2022 16:55:45 Maternal Aunt Diabetes mellitus [email or web address] Not available 2022 16:44:28 Maternal Grandfather Diabetes mellitus Not available 2022 16:55:23 Medical History Condition Response SEIZURES/EPILEPSY Y HEADACHES/MIGRAINES Y GERD/NAUSEA Y HYPERTENSION Y Gynecological HistoryNo gynecological history recorded. Obstetrics History GPAL:G 0 P 0 0 0 0 Past Encounters Encounter ID Performer Location Encounter Start Date Encounter Closed Date Diagnosis/Indication Diagnosis SNOMED-CT Code Diagnosis ICD10 Code Diagnosis IMO Codes Diagnosis Note [id number] Ramon Mcguire MD [facility] [address] [place] [address] 11/27/2022 15:44:33 11/27/2022 16:57:20 Ureteric stone 55104956 N20.1 Health Concerns Section Related Observation LastModified by Organization Detai ls LastModified Time None Recorded Concern Status LastModified by Organization Details LastModified Time None Recorded Advance Directives Directive None Recorded Payers Insurance Date Sequence Insurance Name Policy Number Policy Nicholas Covered Member ID Nicholas Member ID Guarantor Name 05/26/2023 1 [facility] (MEDICAID HMO) [id number] Adrienne Tom [id number] Adrienne Tom Notes Date Note Type Note [...] voiding problems. Ramon Mcguire MD [address] [place], [address], [facility] 11/27/2022 17:43:50 OBGyn Episode No OBEpisode recorded.
--- OUTSIDE RECORDS SUMMARY | 2025-07-12 18:42 | XMS_ITS | Clinical Summary ---
Author Organization [facility] Address [address] [facility] [place] [address] Care Team Providers Care Caterpillar Mechanic Name Role Phone Bernice Mohan VOLCANOLOGY TEACHER-TOURIST CAMP ATTENDANT Primary Care Provider Source Comments [facility],non-owned Affiliates and Associated Physician Practices is amultiple site organization consisting of ambulatory clinics and hospital sitesin [place], [place], [place] and [place]. This disclosure is being madepursuant to the Care Everywhere program and may not contain all information available regarding this patient. Last updated 18.[facility] Allergies No known active allergies Medications * [...] on file Legal Sex Female 5:34 AM RN SURGICAL Gender Identity Not on file Sexual Orientation Not on file Last Filed Vital Signs Vital Sign Reading Time Taken Comments Blood Pressure 120/88 11/18/2023 11:09 AM CDT Pulse 78 10/10/2023 10:34 AM RN SURGICAL Temperature 36.4 C (97.6 F) 10/10/2023 10:00 AM RN SURGICAL Respiratory Rate 16 10/10/2023 10:34 AM RN SURGICAL Oxygen Saturation 99% 10/10/2023 10:34 AM RN SURGICAL Inhaled Oxygen Concentration - - Weight 50.8 [...] SCREENING 08/19/2024 11/18/2023 COVID-19 VACCINE (1 - 2024-2 6 season) 2025 INFLUENZA VACCINE (#1) 2025 ZOSTER [...] patient's age to complete this topic Insurance [facility] Care Address: [address] [address] [facility] [employer] [facility] [employer] [facility] * Guarantor: ADRIENNE TOM Account Type Relation to Patient Date of Phone Billing Address Personal/Family [address] [place] [address] [facility] SELF PAY NO INSURANCE Member Subscriber Plan / Payer (Ef fective for All Dates) Name:Adrienne Tom Member ID:Not on file Relation to Subscriber:Not on file Name:ADRIENNE TOM Subscriber ID:Not on file Address: [address] [place] [address] Payer ID:Not on file Group ID:Not on file Type:Self Pay Address: [place], [place] * Guarantor: ADRIENNE TOM Account Type Relation to Patient Date of Phone Billing Address Personal/Family [address] [place] [address] [facility] SELF PAY NO INSURANCE Member Subscriber Plan / Payer (Ef fective for All Dates) Name:Adrienne Tom Member ID:Not on file Relation to Subscriber:Not on file Name:ADRIENNE TOM Subscriber ID:Not on file Address: [address] [place] [address] Payer ID:Not on file Group ID:Not on file Type:Self Pay Address: [place], [place] * Guarantor: ADRIENNE TOM Account Type Relation to Patient Date of Phone Billing Address Personal/Family [address] [place] [address] [facility] SELF PAY NO INSURANCE Member Subscriber Plan / Payer (Ef fective for All Dates) Name:Adrienne Tom Member ID:Not on file Relation to Subscriber:Not on file Name:ADRIENNE TOM Subscriber ID:Not on file Address: [place] [address] Payer ID:Not on file Group ID:Not on file Type:Self Pay Address: [place], [place] Care Teams Caterpillar Mechanic Relationship Specialty Start Date End Date Bernice Mohan APRN-RUBEN [address] [place] [address] PCP - General Nurse Practitioner Family 06/29/21
== END 2025-07-12 18:50 | disposition home or self-care (01) ==
LOC: CHSED 18:38
PROVIDERS: Emergency Provider Emergency Medicine; PCP Nurse Practitioner Family
DX: S61.451A Open bite of right hand, initial encounter (principal); Z87.891 Personal history of nicotine dependence; W55.01XA Bitten by cat, initial encounter; Z23 Encounter for immunization
CPT/HCPCS: 73130; 90471; 90715; 99283; A9270

== ENCOUNTER 2025-07-14 16:13 | Emergency (ER) | payer OTHER, SELFPAY ==
--- OUTSIDE RECORDS SUMMARY | 2025-07-14 16:15 | XMS_ITS | Clinical Summary ---
Author Organization [id number] Address [address] [place] [address] Care Team Providers Care Silviculture Teacher Name Role Phone Kimberlee, Bernice Gaines RADIOLOGY CLERK Primary Care Provider Allergies No known active [...] any time in the past 12 m [facility], were you homeless or living in a prison (including now)? Patient refused 03/05/2023 Feeling Safe [...] on file Legal Sex Female 2:49 PM OIL LEASE BROKER Gender Identity Not on file Sexual Orientation [...] Advance Directives For more information, please contact: [phone] * Full Code (Latest Code Status on File) Date Activated Date Inactivated Comments 03/05/2023 7:32 AM 03/07/2023 9:35 PM Care Teams Silviculture Teacher Relationship Specialty Start Date End Date Bernice Mohan FNP [address] [place] [address] PCP - General Nurse Practitioner Family 09/04/21
--- OUTSIDE RECORDS SUMMARY | 2025-07-14 16:15 | XMS_ITS | Clinical Summary ---
Author Organization [facility] [employer] Address [address] [place] [address] Care Team Providers Care Smelter Liner Name Role Phone Bernice Mohan ROTATING EQUIPMENT ENGINEER-LANGUAGE INSTRUCTOR Primary Care Provider Source Comments [facility],non-owned Affiliates and Associated Physician Practices is amultiple site organization consisting of ambulatory clinics and hospital sitesin [place], [place], [place]. This disclosure is being madepursuant to the Care Everywhere program and may not contain all information available regarding this patient. Last updated 18.[facility] [employer] Allergies No known active allergies Medications * [...] on file Legal Sex Female 5:34 AM RELATIONSHIP ASSOC Gender Identity Not on file Sexual Orientation Not on file Last Filed Vital Signs Vital Sign Reading Time Taken Comments Blood Pressure 120/88 11/18/2023 11:09 AM CDT Pulse 78 10/10/2023 10:34 AM RELATIONSHIP ASSOC Temperature 36.4 C (97.6 F) 10/10/2023 10:00 AM RELATIONSHIP ASSOC Respiratory Rate 16 10/10/2023 10:34 AM RELATIONSHIP ASSOC Oxygen Saturation 99% 10/10/2023 10:34 AM RELATIONSHIP ASSOC Inhaled Oxygen Concentration - - Weight 50.8 [...] patient's age to complete this topic Insurance [facility] Care Address: [address] [address] [facility] [employer] [facility] * Guarantor: ADRIENNE TOM Account Type Relation to Patient Date of Phone Billing Address Personal/Family [address] [place] [address] [facility] SELF PAY NO INSURANCE Member Subscriber Plan / Payer (Ef fective for All Dates) Name:Adrienne Tom Member ID:Not on file Relation to Subscriber:Not on file Name:ADRIENNE TOM Subscriber ID:Not on file Address: [address] [place] [address] Payer ID:Not on file Group ID:Not on file Type:Self Pay Address: [place], [place] * Guarantor: ADRIENNE TOM Account Type Relation to Patient Date of Phone Billing Address Personal/Family [address] [place] [address] [facility] SELF PAY NO INSURANCE Member Subscriber Plan / Payer (Ef fective for All Dates) Name:Adrienne Tom Member ID:Not on file Relation to Subscriber:Not on file Name:ADRIENNE TOM Subscriber ID:Not on file Address: [address] [place] [address] Payer ID:Not on file Group ID:Not on file Type:Self Pay Address: [place], [place] * Guarantor: ADRIENNE TOM Account Type Relation to Patient Date of Phone Billing Address Personal/Family [address] [place] [address] [facility] SELF PAY NO INSURANCE Member Subscriber Plan / Payer (Ef fective for All Dates) Name:Adrienne Tom Member ID:Not on file Relation to Subscriber:Not on file Name:ADRIENNE TOM Subscriber ID:Not on file Address: [place] [address] Payer ID:Not on file Group ID:Not on file Type:Self Pay Address: [place], [place] Care Teams Smelter Liner Relationship Specialty Start Date End Date Bernice Mohan APRN-RUBEN [address] [place] [address] PCP - General Nurse Practitioner Family 06/29/21
--- OUTSIDE RECORDS SUMMARY | 2025-07-14 16:15 | XMS_ITS | Encounter Summary ---
Author Organization [facility] Address [address] [place] [address] Care Team Providers Care Outboard Technician Name Role Phone Dennys Mohanandrey Gaines RIM FIRE PRIMING TOOL SETTER Primary Care Provider Reason for Visit * Reason Onset Date Comments Ulcerative Colitis 03/06/2023 LEFT SECURE E [facility] CHAT/ DR [facility] Encounter Details Date Type Department Care Team (Late st Contact Info) Description 03/06/2023 Telephone [facility] Admitting [address] [place] [address] [place] [address] [facility] [address] [place] [address] Ulcerative Colitis (LEFT SECURE EPIC [...] time in the past 12 m [facility], were you homeless or living in a skilled nursing (including now)? Patient refused 03/05/2023 Feeling Safe [...] on file Legal Sex Female 2:49 PM RN LONG TERM CARE Gender Identity Not on file Sexual Orientation [...] documented as of this encounter Care Teams Outboard Technician Relationship Specialty Start Date End Date Bernice Mohan FNP [address] [place] [address] PCP - General Nurse Practitioner Family 09/04/21 documented as of this encounter
--- OUTSIDE RECORDS SUMMARY | 2025-07-14 16:15 | XMS_ITS | Clinical Summary ---
Author Organization [facility] Address [facility] [place] [address] Care Team Providers Care Produce Clerk Name Role Phone Fabien Spring ABRAM Primary Care Provider [phone] Allergies No known active allergies Medications clonazePAM [...] Type Department Care Team Description 06/14/2025 Telephone [facility] Orthopedic & Sports Medicine [facility] [address] [place] [address] Tien Arboleda MD Referral 05/19/2025 Telephone [facility] Orthopedic & Sports Medicine [facility] [address] [place] [address] Tien Arboleda MD Referral from Last 3 [...] 3-dose SCD M series) 2015 PHQ-2 (Physician [place]) 08/19/2024 COVID-19 Vaccine (1 - 2024-2 6 [...] this topic Insurance [employer] Care Teams Produce Clerk Relationship Specialty Start Date End Date Fabien Spring FNP [address] [place] [address] PCP - General Nurse Practitioner Family 12/23/24
[2025-07-14 16:21] VITALS: BP 133/92; PULSE 101; RESP 20; TEMP 36.8; O2SAT 98
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
--- OUTSIDE RECORDS SUMMARY | 2025-07-14 16:54 | XMS_ITS | Encounter Summary ---
Author Organization [facility] Address [address] [place] [address] Care Team Providers Care Online Advertising Manager Name Role Phone Dennys Mohnaandrey Gaines FISHERIES DIVER Primary Care Provider Reason for Visit * Reason Onset Date Comments Ulcerative Colitis 03/06/2023 LEFT SECURE E [facility] Encounter Details Date Type Department Care Team (Late st Contact Info) Description 03/06/2023 Telephone [facility] Admitting [address] [place] [address] [place] [address] [facility] [address] [place] [address] Ulcerative Colitis (LEFT SECURE EPIC [...] time in the past 12 m [facility], were you homeless or living in a senior living (including now)? Patient refused 03/05/2023 Feeling Safe [...] on file Legal Sex Female 2:49 PM KNITTING MACHINE FIXER Gender Identity Not on file Sexual Orientation [...] documented as of this encounter Care Teams Online Advertising Manager Relationship Specialty Start Date End Date Bernice Mohan FNP [address] [place] [address] PCP - General Nurse Practitioner Family 09/04/21 documented as of this encounter
--- OUTSIDE RECORDS SUMMARY | 2025-07-14 16:54 | XMS_ITS | Clinical Summary ---
Author Organization [facility] Address [address] [facility] [place] [address] Care Team Providers Care Lawnmower Repair Mechanic Name Role Phone Bernice Mohan OUTER DIAMETER GRINDER TOOL-MACHINE TOOL MECHANIC Primary Care Provider Source Comments [facility],non-owned Affiliates and Associated Physician Practices is amultiple site organization consisting of ambulatory clinics and hospital sitesin [place], [place], [place] and [place]. This disclosure is being madepursuant to the Care Everywhere program and may not contain all information available regarding this patient. Last updated 18.[facility] Allergies No known active allergies Medications * [...] on file Legal Sex Female 5:34 AM UTILITY FORESTER Gender Identity Not on file Sexual Orientation Not on file Last Filed Vital Signs Vital Sign Reading Time Taken Comments Blood Pressure 120/88 11/18/2023 11:09 AM CDT Pulse 78 10/10/2023 10:34 AM UTILITY FORESTER Temperature 36.4 C (97.6 F) 10/10/2023 10:00 AM UTILITY FORESTER Respiratory Rate 16 10/10/2023 10:34 AM UTILITY FORESTER Oxygen Saturation 99% 10/10/2023 10:34 AM UTILITY FORESTER Inhaled Oxygen Concentration - - Weight 50.8 [...] patient's age to complete this topic Insurance [facility] * Guarantor: ADRIENNE TOM Account Type Relation to Patient Date of Phone Billing Address Personal/Family [address] [place] [address] [facility] SELF PAY NO INSURANCE Member Subscriber Plan / Payer (Ef fective for All Dates) Name:Adrienne Tom Member ID:Not on file Relation to Subscriber:Not on file Name:ADRIENNE TOM Subscriber ID:Not on file Address: [address] [place] [address] Payer ID:Not on file Group ID:Not on file Type:Self Pay Address: [place], [place] * Guarantor: ADRIENNE TOM Account Type Relation to Patient Date of Phone Billing Address Personal/Family [address] [place] [address] [facility] SELF PAY NO INSURANCE Member Subscriber Plan / Payer (Ef fective for All Dates) Name:Adrienne Tom Member ID:Not on file Relation to Subscriber:Not on file Name:ADRIENNE TOM Subscriber ID:Not on file Address: [address] [facility] [place] [address] Payer ID:Not on file Group ID:Not on file Type:Self Pay Address: [place], [place] * Guarantor: ADRIENNE TOM Account Type Relation to Patient Date of Phone Billing Address Personal/Family [address] [place] [address] [facility] SELF PAY NO INSURANCE Member Subscriber Plan / Payer (Ef fective for All Dates) Name:Adrienne Tom Member ID:Not on file Relation to Subscriber:Not on file Name:ADRIENNE TOM Subscriber ID:Not on file Address: [place] [address] Payer ID:Not on file Group ID:Not on file Type:Self Pay Address: [place], [place] Care Teams Lawnmower Repair Mechanic Relationship Specialty Start Date End Date Bernice Mohan APRN-RUBEN [address] [place] [address] PCP - General Nurse Practitioner Family 06/29/21
--- OUTSIDE RECORDS SUMMARY | 2025-07-14 16:54 | XMS_ITS | Clinical Summary ---
Author Organization [facility] Address [facility] [place] [address] Care Team Providers Care Wool Hanker Name Role Phone Fabien Spring ABRAM Primary Care Provider [phone] Allergies No known active allergies Medications clonazePAM [...] Type Department Care Team Description 06/14/2025 Telephone [facility] Medical [facility] Orthopedic & Sports Medicine [facility] [address] [place] [address] Tien Arboleda MD Referral 05/19/2025 Telephone [facility] Orthopedic & Sports Medicine [facility] [address] [place] [address] Tien Arboleda MD Referral from Last 3 [...] 3-dose SCD M series) 2015 PHQ-2 (Physician [place]) 08/19/2024 COVID-19 Vaccine (1 - 2024-2 6 [...] this topic Insurance [employer] Care Teams Wool Hanker Relationship Specialty Start Date End Date Fabien Spring FNP [address] [place] [phone] PCP - General Nurse Practitioner Family 12/23/24
--- OUTSIDE RECORDS SUMMARY | 2025-07-14 16:54 | XMS_ITS | Clinical Summary ---
Author Organization [facility] [id number] [facility] Address [address] [place] [address] Care Team Providers Care Care Provider Name Role Phone Kimebrlee, Bernice Gaines GLASS RIBBON MACHINE OPERATOR Primary Care Provider Allergies No known active [...] any time in the past 12 m [facility], were you homeless or living in a long-term (including now)? Patient refused 03/05/2023 Feeling Safe [...] on file Legal Sex Female 2:49 PM AURIST Gender Identity Not on file Sexual Orientation [...] Advance Directives For more information, please contact: [phone] * Full Code (Latest Code Status on File) Date Activated Date Inactivated Comments 03/05/2023 7:32 AM 03/07/2023 9:35 PM Care Teams Care Provider Relationship Specialty Start Date End Date Bernice Mohan FNP [address] [place] [address] PCP - General Nurse Practitioner Family 09/04/21
== END 2025-07-14 16:59 | disposition home or self-care (01) ==
LOC: CHSED 16:51
PROVIDERS: Emergency Provider Emergency Medicine; PCP Nurse Practitioner Family
DX: S61.215A Laceration without foreign body of left ring finger without damage to nail, initial encounter (principal); W26.0XXA Contact with knife, initial encounter; Z79.899 Other long term (current) drug therapy; Z87.891 Personal history of nicotine dependence
CPT/HCPCS: 12001; 99283

== ENCOUNTER 2025-07-21 01:14 | Day surgery (SDC) | payer OTHER, SELFPAY ==
--- NOTE | 2025-07-13 17:16 | SUR.PREOP ---
[facility] has started construction of its new state of the art ER which will open Spring 2026. With this, we anticipate parking may be a challenge for some our surgical patients and families. Parking spaces are limited but are available for all Surgical, obstetrics, and ER patients sharing this lot. If you arrive and find you are having a hard time finding a parking space, please note that we understand the challenges, please drive around the hospital and park near Hospital Entrance 1. When you enter this entrance, you can ask a volunteer to direct or take you back to the surgical waiting area to check in. We appreciate everyone?s understanding of these expected challenges while we build for your future. Report to the Outpatient Waiting Room, entrance under the green pavilion located off [address], at time _0915_ on date _07/21/2025_. Planned Procedure Time: _1115_.? Time changes happen often and if your time is changed the preop area will call you the afternoon before. - You and your visitor will be asked to self-screen and do not enter if you have any COVID symptoms. Please call surgeon if you need to reschedule. - A mask is optional within the hospital at this time. - No food or drinks from 0315 until time of surgery and no smoking, or chewing tobacco (or any form of nicotine). No chewing gum, candy or mints. Take only the following medications with a SIP of water on the morning of surgery: _BUSPAR, LAMOTRIGINE, CLONAZEPAM IF NEEDED_ DO NOT STOP ANY OF YOUR OTHER PRESCRIPTION MEDICATIONS PRIOR TO SURGERY EXCEPT THE FOLLOWING Hold all vitamins and supplements for 3 days per anesthesiologist. Medications to discontinue per physician _NA_ Date to take last dose_NA_ Please no make-up, nail armenian, hairspray, perfume, deodorant, or body powder the day of surgery.? No jewelry (including any body piercings) or valuables the day of surgery, leave them at home.? Please take a shower or bath the night before, or the morning of, surgery with an antibacterial soap.? Wear comfortable, loose fitting clothing.? Children are encouraged to wear pajamas. - Jewelry must be removed prior to entering the operating room.? Rings and piercings that are not removed may be cut off. - The hospital will not accept responsibility for valuables.? - Please leave all valuables, including medications, at home the day of surgery. If you are going home after surgery, a licensed delivery driver must drive you home.? - NO public transportation without another adult if you receive anesthesia. - We recommend that an adult stay with you for 24 hours following discharge. - We also recommend that you do not drive, make important decision, drink alcoholic beverages, or take any drugs that were not prescribed by your health care provider for at least 24 hours after your discharge time. For Pediatric surgeries, we recommend two adults accompany the child home. Follow any additional instructions given to you from your surgeon. Telephone instructions given to _MEG_and asked if any additional questions and then verbalized understanding. Patient advised to call surgeon office or pre surgery nurse liaison [phone] if any additional questions.
[2025-07-13 17:22] VITALS: BMI 20.4
--- OUTSIDE RECORDS SUMMARY | 2025-07-21 01:17 | XMS_ITS | Encounter Summary ---
Author Organization [facility] Address [address] [place] [address] Care Team Providers Care Creel Hand Name Role Phone Denyns Mohanandrey Gaines PRODUCTION CLOTH CUTTER Primary Care Provider Reason for Visit * Reason Onset Date Comments Ulcerative Colitis 03/06/2023 LEFT SECURE E [facility] CHAT/ [facility] Encounter Details Date Type Department Care Team (Late st Contact Info) Description 03/06/2023 Telephone [facility] Admitting [address] [place] [address] [place] [address] [facility] [address] [place] [address] Ulcerative Colitis (LEFT SECURE EPIC [...] any time in the past 12 m [facility], were you homeless or living in a custodial (including now)? Patient refused 03/05/2023 Feeling Safe [...] on file Legal Sex Female 2:49 PM CADDYMASTER Gender Identity Not on file Sexual Orientation [...] documented as of this encounter Care Teams Creel Hand Relationship Specialty Start Date End Date Bernice Mohan FNP [address] [place] [address] PCP - General Nurse Practitioner Family 09/04/21 documented as of this encounter
--- OUTSIDE RECORDS SUMMARY | 2025-07-21 01:17 | XMS_ITS | Clinical Summary ---
Author Organization [place] [facility] [id number] Address [address] [place] [address] Care Team Providers Care Network Contract Manager Name Role Phone Kimberlee, Bernice Gaines BOTTLE HOP Primary Care Provider Allergies No known active [...] any time in the past 12 m [facility], were you homeless or living in a retirement (including now)? Patient refused 03/05/2023 Feeling Safe [...] on file Legal Sex Female 2:49 PM PERCUSSION TEACHER Gender Identity Not on file Sexual Orientation [...] series) 2015 INFLUENZA VACCINE (#1) 2025 Insurance * Guarantor: Adrienne Tom Account Type Relation to Patient Date of Phone Billing Address Personal/Family Self 1990 [address] [place] [address] [employer] [place] Advance Directives For more information, please contact: [phone] * Full Code (Latest Code Status on File) Date Activated Date Inactivated Comments 03/05/2023 7:32 AM 03/07/2023 9:35 PM Care Teams Network Contract Manager Relationship Specialty Start Date End Date Bernice Mohan FNP [address] [place] [address] PCP - General Nurse Practitioner Family 09/04/21
--- OUTSIDE RECORDS SUMMARY | 2025-07-21 01:17 | XMS_ITS | Clinical Summary ---
Author Organization [facility] Address [facility] [place] [address] Care Team Providers Care Pedorthist Name Role Phone Fabien Spring ABRAM Primary Care Provider [phone] Allergies No known active allergies Medications clonazePAM [...] Type Department Care Team Description 06/14/2025 Telephone [facility] Medical [facility] Orthopedic & Sports Medicine [facility] [address] [place] [address] Tien Arboleda MD Referral 05/19/2025 Telephone [facility] Orthopedic & Sports Medicine [facility] [address] [place] [address] Tien Arboleda MD Referral from Last 3 [...] 3-dose SCD M series) 2015 PHQ-2 (Physician [place]) 08/19/2024 COVID-19 Vaccine (1 - 2024-2 6 [...] this topic Insurance [employer] Care Teams Pedorthist Relationship Specialty Start Date End Date Fabien Spring FNP [address] [place] [phone] PCP - General Nurse Practitioner Family 12/23/24
--- OUTSIDE RECORDS SUMMARY | 2025-07-21 01:17 | XMS_ITS | Clinical Summary ---
Author Organization [facility] Address [address] [facility] [place] [address] Care Team Providers Care Manager Bakery Name Role Phone Bernice Mohan SENIOR INSTRUCTOR-SCIENCE AND OPERATIONS OFFICER Primary Care Provider Source Comments [facility],non-owned Affiliates and Associated Physician Practices is amultiple site organization consisting of ambulatory clinics and hospital sitesin [place], [place], [place] and [place]. This disclosure is being madepursuant to the Care Everywhere program and may not contain all information available regarding this patient. Last updated 18.[facility] Allergies No known active allergies Medications * [...] on file Legal Sex Female 5:34 AM DAM WORKER Gender Identity Not on file Sexual Orientation Not on file Last Filed Vital Signs Vital Sign Reading Time Taken Comments Blood Pressure 120/88 11/18/2023 11:09 AM CDT Pulse 78 10/10/2023 10:34 AM DAM WORKER Temperature 36.4 C (97.6 F) 10/10/2023 10:00 AM DAM WORKER Respiratory Rate 16 10/10/2023 10:34 AM DAM WORKER Oxygen Saturation 99% 10/10/2023 10:34 AM DAM WORKER Inhaled Oxygen Concentration - - Weight 50.8 [...] patient's age to complete this topic Insurance [facility] Care Address: [address] [address] [facility] [place] [facility] [facility] * Guarantor: ADRIENNE TOM Account Type Relation to Patient Date of Phone Billing Address Personal/Family [address] [place] [address] [facility] SELF PAY NO INSURANCE Member Subscriber Plan / Payer (Ef fective for All Dates) Name:Adrienne Tom Member ID:Not on file Relation to Subscriber:Not on file Name:ADRIENNE TOM Subscriber ID:Not on file Address: [address] [place] [phone] Payer ID:Not on file Group ID:Not on file Type:Self Pay Address: [place], [place] * Guarantor: ADRIENNE TOM Account Type Relation to Patient Date of Phone Billing Address Personal/Family [address] [place] [address] [facility] SELF PAY NO INSURANCE Member Subscriber Plan / Payer (Ef fective for All Dates) Name:Adrienne Tom Member ID:Not on file Relation to Subscriber:Not on file Name:ADRIENNE TOM Subscriber ID:Not on file Address: [address] [facility] [place] [address] Payer ID:Not on file Group ID:Not on file Type:Self Pay Address: [place], [place] * Guarantor: ADRIENNE TOM Account Type Relation to Patient Date of Phone Billing Address Personal/Family [address] [place] [address] [facility] SELF PAY NO INSURANCE Member Subscriber Plan / Payer (Ef fective for All Dates) Name:Adrienne Tom Member ID:Not on file Relation to Subscriber:Not on file Name:ADRIENNE TOM Subscriber ID:Not on file Address: [place] [address] Payer ID:Not on file Group ID:Not on file Type:Self Pay Address: [place], [place] Care Teams Manager Bakery Relationship Specialty Start Date End Date Bernice Mohan APRN-RUBEN [address] [place] [address] PCP - General Nurse Practitioner Family 06/29/21
--- NOTE | 2025-07-21 06:48 | WPDHPUPDATE1 ---
History and Physical Update Update Date/Time: 07/21/25 06:48 Patient seen and examined in pre-operative holding area. No interval change in medical history or symptoms. Patient recalls previous discussion of benefits and alternatives to procedure. Continues to desire to proceed with right index finger mass excision . Reviewed procedure, post-op expectations and risks including but not limited to bleeding, infection, injury to tendon/nerve/vessel, decreased hand function, stiffness, RSD, no change or worsening of symptoms, recurrence. I discussed the possible use of assistants and their participation in the case. Patient stated understanding and signed the consent form wishing to proceed.
--- NOTE | 2025-07-21 06:49 | P.OP_ITS ---
Procedure Note - Detailed Date of Procedure 07/21/25 Pre-op Diagnosis Right Index Finger Mass Post-op Diagnosis Same Procedure Performed right index finger mass excision Surgeon Olya Temple MD Press Pipe Inspector aurelia kearns pa-c Anesthesia MAC Description of Procedure INFORMED CONSENT: The patient was seen and examined and marked in the pre-op area.? The patient signed the consent form. PROCEDURE IN DETAIL:The patient taken back to OR on the stretcher in supine position. Time out performed with anesthesia, surgeon and staff agreeing on patient's name site and surgery to be performed SCDs were placed on the lower extremities and inflated. A tourniquet was placed on {right} upper extremity and antibiotics given IV After anesthesia administered sedation I injected {3}cc 1%lido and 0.5% marcaine plain at the operative site The?{right upper extremity}?was prepped and draped in sterile fashion the??{right upper extremity} was? exsanguinated proximal to mass with Esmarch bandage and tourniquet inflated to 250mmHg I proceeded with making an oblique incision over the mass just proximal to the right index finger mpjoint flexion crease through skin and dermis with a 15 blade scalpel. Littler scissors were used to spread through subcutaneous tissue down to the mass which appeared to be arising from the a1 pretty. I proceeded with using 15 blade scalpel to excise the mass off of the sheath which included a portion of the at pretty. Littler scissors were used to spread above and below the a1 pretty and then completed the transection to possibly prevent development of trigger finger from scar tissue arter partial pretty exision. the radial and ulnar digital nerves were identified and protected throughout the procedure. The FDS and FDP tendons were inspected and appeared to be free of further masses or synovitis and requiring smoothly in the sheath. I irrigated with normal saline and closed with 4-0 chromic. A dressing of xeroform, 4x4, allan, and an thalia bandage was applied after the tourniquet was let down noting the hand was warm and well perfused. The patient was then awaken from anesthesia and transferred to the recovery room in stable condition.? Complications - none EBL- 0cc Disposition - home in stable condition Aurelia Kearns PA-C was essential for positioning, retraction, closure and dressing placement. [facility] Billing Surgery - Charge Forward: Surgery Billing ([id number] same for aurelia adding )
[2025-07-21 10:06] VITALS: BP 109/71; PULSE 63; TEMP 36.5; O2SAT 100; BMI 21.2
[2025-07-21] MEDS: LACTATED RINGERS 1,000 ML 30 ML IV CONT (10:07)
[2025-07-21] MEDS: ACETAMINOPHEN 500 MG TABLET 1000 MG PO (10:08)
--- NOTE | 2025-07-21 10:55 | WPDANESEPPF ---
Anes - Initial Pre Proc Eval Procedure: Operation Date: 07/21/25 11:15 Proposed Procedures p Right Index Finger Mass Excision - Olya Temple MD Date/Time: 07/21/25 10:55 Surgeon: Olya Temple MD Pre Op Diagnosis: Right Index Finger Mass Patient Data Age: 34 Gender: F Height: 1.6 m Weight: 54.4 kg Last Vital Signs Temp 36.5 C 07/21/25 10:06 Pulse 63 07/21/25 10:06 BP 109/71 07/21/25 10:06 Pulse Ox 100 07/21/25 10:06 O2 Del Method Room Air 07/21/25 10:06 Allergies Allergy/AdvReac Type Severity Reaction Status Date / Time No Known Allergies Allergy Verified 07/14/25 16:28 Home Medications ?Medication ?Instructions ?Recorded ?Confirmed ?Type clonazepam 0.5 mg tablet (Klonopin) 0.5 mg PO QHS 10/02/23 07/13/25 History Held on 07/21/25. Instructions: Resume on 07/24/25. do not take with tramadol lamotrigine 200 mg tablet 200 mg PO BID #60 tabs 05/05/24 07/21/25 Rx buspirone 5 mg tablet 5 mg PO TID 12/07/24 07/21/25 History estradiol 0.025 mg/24 hr 1 patch transdermal .TWICE A WEEK 07/13/25 07/13/25 History semiweekly transdermal patch (Lyllana) tramadol 50 mg tablet 50 mg PO Q6H PRN pain #12 tabs 07/21/25 Rx Patient hx anesthesia problems: none Family hx anesthesia problems: none Results Review: All pre-operative results and documents have been reviewed as part of the pre-operative evaluation. [facility] Past Medical History Medical History IBS (irritable bowel syndrome) Centromere antibody positive Weight loss Failure to thrive LUQ abdominal pain Lumbar degenerative disc disease Salpingitis Post hysterectomy menopause Seizure disorder Anxiety Depression Vaginal delivery x 3 Surgical History Surgical History History of sleeve gastrectomy S/P gastric sleeve procedure Bariatric surgery status H/O wrist surgery cyst from Left History of hysterectomy History of cholecystectomy Family History Family History Grandparent Acute myocardial infarction Mother Hypertension Other Cervical cancer Diabetes mellitus Social History Social History Social History: Caffeine-half calf Smoking packs per day: 0.5 Smoking cigarettes per day: 10.0 Years smoked: 3 Smoking pack-years: 1.50 Smoking status: Former smoker Tobacco type: cigarettes Second hand tobacco smoke exposure: No Smoking end date: 08/19/10 Alcohol intake: never Substance use: current Substance use type: marijuana Other substance usage details: THC edibles Lack of Transportation: No Lack of Food: Sometimes True Current Housing: I Have Housing Concerned About Future Housing: YES Difficulty Paying Gas/Electric Bills: YES Difficulty Paying for Meds: No Currently Unemployed: YES Education: High School Diploma/GED Difficulty w/ Childcare or Family Care: No Living arrangements: with family Spiritual care concerns: No Anes - Eval Final PreProcedure Day of Procedure 07/21/25 10:55 Patient weight: normal Heart: regular rate and rhythm Lungs: clear to auscultation Airway: Mallampati scale class 1 Neurological: alert and oriented Last oral intake: >/= 8 hours ASA classification: III Emergent: no Anesthetic plan: proceed Anesthesia type and monitoring: general GIVS and standard monitoring Results Review: All pre-operative results and documents have been reviewed as part of the pre-operative evaluation. Informed Consent: The patient's anesthetic plan and its attendant risks and benefits were discussed with the patient/family/POA. Questions were solicited and answers provided to the satisfaction of the patient/family/POA.
[2025-07-21] MEDS: ceFAZolin 2 GM in SODIUM CHLORIDE 0.9% IV 50 ML 100 ML IVPB (11:06)
[2025-07-21] MEDS: BUPivacaine HCL 0.5% 10 ML AMP INFILTRATE (11:13)
[2025-07-21] MEDS: LIDOCAINE 1% LOCAL INJ 10 ML VIAL INFILTRATE (11:14)
--- NOTE | 2025-07-21 11:16 | S_PTH ---
PATIENT: Adrienne Tom LOC: [facility] U#:[id number] AGE/SX: 34/F ROOM: RE07/21/[address]: Olya Temple MD : [id number] BED: DIS: 07/21/2025 SPEC #: [id number] RECD: 07/21/25 12:03 STATUS: LOS REJessica #: [id number] NEHA: 07/21/25 11:[address]: Olya Temple DEPT: [facility] Surgical RECD BY: Helen Novak ENTERED: 07/21/25 12:04 SP TYPE: Surgical OTHR DR: Fabien Spring APRN Tissues: A - Mass Procedures: Hematoxylin and Eosin Stain Gross and Microscopic Level 3
[2025-07-21 11:27] VITALS: BP 104/50; PULSE 83; RESP 14; O2SAT 98
[2025-07-21 11:55] VITALS: BP 110/60; PULSE 78; RESP 16; O2SAT 100
[2025-07-21] MEDS: oxyCODONE HCL (*CRX) 5 MG TAB IR PO (11:59)
[2025-07-21] MEDS: ONDANSETRON INJ 4 MG/2 ML VIAL IV PUSH (12:17)
[2025-07-21 12:25] VITALS: BP 124/80; PULSE 61; RESP 16
[2025-07-21 12:55] VITALS: BP 128/55; PULSE 70; RESP 18
== END 2025-07-21 13:00 | disposition home or self-care (01) ==
PROVIDERS: PCP Nurse Practitioner Family; Visit Provider Plastic Surgery
PROC: (CPT 26160; principal; 2025-07-21 11:15)
DX: M67.441 Ganglion, right hand (principal); K58.9 Irritable bowel syndrome, unspecified; M51.369 Other intervertebral disc degeneration, lumbar region without mention of lumbar back pain or lower extremity pain; G40.909 Epilepsy, unspecified, not intractable, without status epilepticus; F41.9 Anxiety disorder, unspecified; F32.A Depression, unspecified; F12.90 Cannabis use, unspecified, uncomplicated; Z79.891 Long term (current) use of opiate analgesic; Z98.890 Other specified postprocedural states; Z98.84 Bariatric surgery status; Z90.49 Acquired absence of other specified parts of digestive tract; Z87.891 Personal history of nicotine dependence; Z80.49 Family history of malignant neoplasm of other genital organs; Z82.49 Family history of ischemic heart disease and other diseases of the circulatory system
CPT/HCPCS: 26160; 88304; J0690; A9270; J2003; J2250; J2270; J2405; J2704; J7120